=== PATIENT | male | born 1955 | race Two or more races ===

== ENCOUNTER → 2024-12-08 | Outpatient (CLI) | payer MEDICARE, MEDICAID, SELFPAY ==
--- NOTE | 2024-12-08 15:30 | XR_ITS ---
Examination: Ultrasound soft tissue extremity right hand TECHNIQUE: Grayscale sonographic images soft tissue right hand Exam date and time: December 08, 2024 1522 hours INDICATIONS: History soft tissue mass right hand, vascular mass 4.6 cm on ultrasound December 18, 2021 FINDINGS: Soft tissue mass at the surgery site 2.0 x 0.8 x 2.7 cm IMPRESSION: Soft tissue mass at the surgery site, irregular margins, measuring 2.0 x 0.8 x 2.7 cm Consider MRI hand follow-up pre and postcontrast
== END | disposition home or self-care (01) ==
LOC: CDIM 15:08
PROVIDERS: Referring Provider Nurse Practitioner; Visit Provider Nurse Practitioner
DX: R22.31 Localized swelling, mass and lump, right upper limb (principal)
CPT/HCPCS: 76882

== ENCOUNTER → 2024-12-31 | Outpatient (CLI) | payer MEDICARE, MEDICAID, SELFPAY ==
--- NOTE | 2024-12-31 08:21 | XR_ITS ---
Examination: Wrist, right 3 views Technique: Wrist AP, oblique, lateral 3 views Date and time of exam: December 31, 2024 0835 hours INDICATIONS: Lump on the back of the hand 3 months. FINDINGS: Prominent osteopenia Soft tissue vascular calcification No fracture or dislocation No bony exostosis IMPRESSION: No bony exostosis
--- NOTE | 2024-12-31 08:21 | XR_ITS ---
Examination: Hand, right 3 views Technique: Hand AP, oblique, lateral 3 views Date and time of exam: December 31, 2024 0835 hours INDICATIONS: Lump on the hand note is beginning 3 months ago. FINDINGS: Prominent osteopenia. Advanced osteoarthritis interphalangeal joint first digit Significant narrowing second and third metacarpophalangeal joints No cortical bone destruction No bony exostosis IMPRESSION: No fracture Advanced osteoarthritis interphalangeal joint first digit
== END | disposition home or self-care (01) ==
PROVIDERS: PCP Family Medicine; Referring Provider Nurse Practitioner Gerontology; Visit Provider Nurse Practitioner Gerontology
DX: M19.041 Primary osteoarthritis, right hand (principal); M25.531 Pain in right wrist
CPT/HCPCS: 73110; 73130

== ENCOUNTER → 2025-02-19 | Outpatient (CLI) | payer MEDICARE, MEDICAID, SELFPAY ==
--- NOTE | 2025-02-19 08:55 | XR_ITS ---
Examination: Wrist, right 3 views Technique: Wrist AP, oblique, lateral 3 views Date and time of exam: February 19, 2025 0858 hours INDICATIONS: Wrist pain one month history wrist surgery FINDINGS: Moderate osteopenia Soft tissue vascular calcification. Mild narrowing radiocarpal joint Moderate narrowing navicular trapezium joint Mild narrowing first carpometacarpal joint. No erosive arthritis No fracture IMPRESSION: Wrist joint narrowing as above
--- NOTE | 2025-02-19 08:55 | XR_ITS ---
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 FINDINGS: Mild opacity right base Mild prominence left ventricle Cardiac leads satisfactory position IMPRESSION: Mild pneumonia right base
--- NOTE | 2025-02-19 08:55 | XR_ITS ---
Examination: Hand, right 3 views Technique: Hand AP, oblique, lateral 3 views Date and time of exam: February 19, 2025 0858 hours INDICATIONS: Right hand pain one month. FINDINGS: Mild to moderate osteoarthritis distal interphalangeal joints second through fifth digits Significant osteoarthritis first metacarpophalangeal joint and interphalangeal joint first digit No erosive arthritis. No fractures IMPRESSION: Osteoarthritis as above
[2025-02-19 11:02] LABS: Glucose Estimated Average 100 mg/dL (80-131); Hemoglobin A1C 5.1 % Hgb (4.8-6.0)
[2025-02-19 13:11] LABS: Cocci Serology, IgM Negative (Negative)
[2025-02-20 07:21] LABS: Cocci Serology, IgG Positive (Negative)
[2025-02-20 07:22] LABS: Cocid Sro, CF/ID (UCD) NO CHG* See Sep Rpt
== END | disposition home or self-care (01) ==
LOC: CDIM 08:46 → COPL 09:23
PROVIDERS: PCP Nurse Practitioner; Referring Provider Nurse Practitioner; Visit Provider Radiology Diagnostic Radiology
DX: J18.9 Pneumonia, unspecified organism (principal); M19.041 Primary osteoarthritis, right hand; M25.831 Other specified joint disorders, right wrist; B38.3 Cutaneous coccidioidomycosis; R73.09 Other abnormal glucose
CPT/HCPCS: 36415; 71046; 73100; 73130; 83036; 86331; 86635

== ENCOUNTER 2025-04-13 20:37 | Inpatient (IN) | payer MEDICARE, MEDICAID, SELFPAY ==
[2025-04-13] VITALS (8 sets, daily range): BP systolic 81–130; BP diastolic 45–91; PULSE 66–99; RESP 14–21; TEMP 36.1–36.3; O2SAT 96–98; BMI 29.5
--- NOTE | 2025-04-13 21:23 | PD.EDSOB ---
ED SOB =RME/HPI General Chief Complaint: Shortness of Breath/Dyspnea Stated Complaint: HICCUPS FOR THE LAST 3 DAYS, SOB, COUGH Time Seen by Provider: 04/13/25 21:26 Arrival date/time: 04/13/25 20:37 RME / HPI RME / HPI Narrative: See [facility] for Dr. Collado's HPI documentation. Related Data Home Medications ?Medication ?Instructions ?Recorded ?Confirmed Seroquel 50 mg PO BID 04/14/25 04/14/25 baclofen 10 mg tablet 10 mg PO Q8H 04/14/25 04/14/25 benadryl 25 mg PO .QHS 04/14/25 04/14/25 donepezil 10 mg tablet 10 mg PO QDAY 04/14/25 04/14/25 escitalopram oxalate 20 mg tablet 20 mg PO QDAY 04/14/25 04/14/25 famotidine 20 mg tablet (Pepcid) 20 mg PO BID 04/14/25 04/14/25 levofloxacin 500 mg tablet 500 mg PO Q24H 04/14/25 04/14/25 lisinopril 10 mg tablet 10 mg PO QDAY 04/14/25 04/14/25 loratadine 10 mg tablet 10 mg PO Q24H 04/14/25 04/14/25 memantine 10 mg tablet 10 mg PO BID 04/14/25 04/14/25 prednisone 20 mg tablet 20 mg PO QDAY 04/14/25 04/14/25 tamsulosin 0.4 mg capsule (Flomax) 0.4 mg PO QDAY 04/14/25 04/14/25 Allergies Allergy/AdvReac Type Severity Reaction Status Date / Time No Known Allergies Allergy Verified 04/13/25 20:38 Review of Systems Review of Systems Systems Reviewed: All systems reviewed, normal except as documented ED Exam Narrative Physical exam: See [facility] for Dr. Collado's physical exam documentation. Course Course Course Narrative: CXR is ordered for determining the etiology of shortness of breath. Quality Measures none Orders Category Date Time Status Bedside COVID-19 Antigen Test NOW Care 04/13/25 21:30 Completed Bedside Influenza A&B Antigen Test NOW Care 04/13/25 21:[address] Screening NOW Care 04/13/25 22:41 Completed EKG (ED ONLY) *Do not use* NOW Care 04/13/25 21:31 Completed [place] to [place] Routine Care 04/14/25 01:10 Ordered Saline [Insert IV] NOW Care 04/13/25 21:30 Completed Straight [In and Out Catheter] X1 Care 04/13/25 21:[address] angio chest Stat Exams 04/13/25 22:41 Completed EKG (ED Only) Stat Exams 04/13/25 21:31 Draft US venous doppler LE BI Stat Exams 04/14/25 00:00 Completed XR chest 1V portable Stat Exams 04/13/25 21:31 Completed ABG [Arterial Blood Gas] Stat Lab 04/14/25 04:25 Completed BNP [B-Type Natriuretic Peptide] Stat Lab 04/13/25 21:43 Completed Bilirubin,Direct Stat Lab 04/13/25 21:43 Completed Blood Culture (Lab) Stat Lab 04/13/25 21:48 Results CBC Stat Lab 04/13/25 21:43 Completed CMP [Comprehensive Metabolic Panel] Stat Lab 04/13/25 21:43 Completed CRP [C-Reactive Protein] Stat Lab 04/13/25 21:43 Completed D-Dimer Stat Lab 04/13/25 21:43 Completed ESR [Sed Rate (ESR)] Stat Lab 04/13/25 21:43 Completed Lactate (Lactic Acid) Stat Lab 04/13/25 21:43 Completed Lactic Acid, 3 HR Stat Lab 04/14/25 01:29 Completed Magnesium Stat Lab 04/13/25 21:43 Completed PT [Prothrombin Time with INR] Stat Lab 04/14/25 04:00 Completed PTT [Partial Thromboplastin Time] Stat Lab 04/14/25 04:00 Completed Procalcitonin Stat Lab 04/13/25 21:43 Completed TSH [Thyroid Stimulating Hormone] Stat Lab 04/13/25 21:43 Completed Troponin I Stat Lab 04/13/25 21:43 Completed UA, C/S IF [Urinalysis, C/S if Indicated] Stat Lab 04/13/25 22:00 Completed Albuterol/Ipratr Rt Yael [Duoneb Rt Yael] Med 04/13/25 21:31 Discontinued 3 ml INH X1 ONE Cefepime Inj [Maxipime Inj] 2 gm Med 04/14/25 04:41 Discontinued SODIUM CHLORIDE 0.9% (Popper) [Ns 0.9% (P)] 50 ml IV X1 Diazepam Inj [Valium Inj] Med 04/14/25 00:27 Discontinued 5 mg IVP X1 ONE Heparin Inj Med 04/14/25 04:42 Discontinued 6,400 unit IV X1 ONE Heparin/D5w 25K 250 ML Ivpb [Heparin in D5w Ivpb] Med 04/14/25 04:45 Hold 25,000 unit in 250 ml IV 18 units/kg/hr MethylPREDNISolone.* [SoluMEDROL Inj] Med 04/13/25 21:31 Discontinued 125 mg IVP X1 ONE Norepinephrine/D5W 8mg/250ml [Levophed in D5W 8mg/250ml Med 04/14/25 00:18 Discontinued ] 8 mg in 250 ml IV 0.05 mcg/kg/min Sodium Chloride 0.9% 1000 ml [Ns] 1,000 ml Med 04/13/25 22:32 Discontinued IV 999 mls/hr Sodium Chloride 0.9% 1000 ml [Ns] 1,000 ml Med 04/13/25 23:04 Discontinued IV 999 mls/hr Sodium Chloride 0.9% 1000 ml [Ns] 1,000 ml Med 04/13/25 23:36 Discontinued IV 999 mls/hr Vancomycin Inj 2,000 mg Med 04/14/25 04:41 Discontinued Sodium Chloride 0.9% 500 ml [Ns] 500 ml IV X1 Vital Signs Vital signs: Vital Signs Temperature 97.4 F 04/13/25 21:13 Pulse Rate 99 04/13/25 21:13 Respiratory Rate 18 04/13/25 21:13 Blood Pressure 120/74 04/13/25 21:13 Pulse Oximetry (%) 96 04/13/25 21:13 Oxygen Delivery Method Room Air 04/13/25 21:13 Shortness of Breath / Dyspnea MDM Narrative MDM Narrative:: This section includes all my notes and documentations, including HPI, PE, and ED course. Keo Collado MD HPI: 69yo male here with worsening productive cough and shortness of breath for the last 1 week. With hiccups today. No obvious fever. No other complaints. ROS: All negative except as documented in HPI. Physical Exam: General: Alert and oriented X 1. Hypoxia noted. Hypotension noted. Eyes: Conjunctivae and lids clear. ENT: No nasal congestion. Neck: Supple. No carotid bruit. No JVD. Heart: RRR. Lungs: No respiratory distress. Good air movement with rales. Abdomen: Soft and nontender. Normal bowel sounds. No distension. No rebound or guarding. Back: No CVA tenderness. Skin: Warm and dry. I reviewed all diagnostic test results. My interpretation of the EKG is sinus rhythm with PACs and nonspecific ST-T changes. My interpretation of the chest x-ray is equivocal infiltrates. My review of the bilateral lower extremity US report is right leg DVT. My review of the CT angio chest report is pulmonary embolism with pneumonia. Blood tests remarkable for ESR 45, D-Dimer >3280, Creatinine 2.0, CRP 17.7. UA unremarkable. COVID/Influenza negative. At this point, diagnoses include: Sepsis, Pulmonary embolism, Acute respiratory failure with hypoxia, Right leg DVT, Pneumonia, Dementia, FADY (acute kidney injury). Treatment here included: Oxygen, Duoneb, Valium (for help with CT scan), IV fluid, Solumedrol, Levophed drip, Heparin bolus and drip, Cefepime, Vancomycin. I discussed the case with our ICU team. About the presentation and exam and diagnostics and treatments here. And need of further care in the hospital. Will accept the patient. Keo Collado MD Patient data External records reviewed:: [facility] previous records (Per chart review, patient was seen here on 11/30/18 for bradycardia.) Clinical information provided by:: patient and family Social determinants that could affect healthcare access:: none Patient has the following chronic illnesses:: Alzheimer's How is presenting disease/condition affected by chronic disease/condition?: uneffected by Evaluation data The following diagnostics were reviewed and interpreted by me:: lab results, radiology exam(s) and EKG tracing(s) (My interpretation of the EKG is: Sinus rhythm (82 bpm) with PACs and nonspecific ST-T changes. Keo Collado MD) Lab and/or radiology exams considered but not ordered:: none Interpretation Summary: I reviewed all diagnostic test results. My interpretation of the EKG is sinus rhythm with PACs and nonspecific ST-T changes. My interpretation of the chest x-ray is equivocal infiltrates. My review of the bilateral lower extremity US report is right leg DVT. My review of the CT angio chest report is pulmonary embolism with pneumonia. Blood tests remarkable for ESR 45, D-Dimer >3280, Creatinine 2.0, CRP 17.7. UA unremarkable. COVID/Influenza negative. Medications / Prescriptions Medications or Prescriptions considered but not ordered:: none Medication administrations:: Medication Administration History Acetaminophen (Acetaminophen 325 Mg Tablet) 650 mg PO Q6H PRN PRN Reason: PAIN OR FEVER > 101 Stop: 05/14/25 05:14 Last Admin: 04/14/25 09:36 Dose: 650 mg Documented By: ABBE Baclofen (Baclofen 10 Mg Tablet) 10 mg PO Q8H [facility] Stop: 05/14/25 18:29 Donepezil HCl (Donepezil Hcl 5 Mg Tablet) 10 mg PO QDAY [facility] Stop: 05/15/25 08:59 Heparin Sodium/Dextrose (Heparin In D5w Ivpb) 25,000 unit in 250 mls @ 14.451 mls/hr IV .[id number] ARIANA; Protocol Stop: 04/28/25 04:44 Last Titration: 04/14/25 16:13 Dose: 15 units/kg/hr, 12.043 mls/hr Documented By: KASSIE Co-signed By: MG Titration: 04/14/25 15:12 Dose: 0 units/kg/hr, 0 mls/hr Documented By: ABBE Co-signed By: MV Titration: 04/14/25 15:00 Dose: 18 units/kg/hr, 14.451 mls/hr Documented By: ABBE Co-signed By: MV Titration: 04/14/25 14:00 Dose: 18 units/kg/hr, 14.451 mls/hr Documented By: ABBE Co-signed By: MV Titration: 04/14/25 13:00 Dose: 18 units/kg/hr, 14.451 mls/hr Documented By: ABBE Co-signed By: MV Titration: 04/14/25 12:00 Dose: 18 units/kg/hr, 14.451 mls/hr Documented By: ABBE Co-signed By: MV Titration: 04/14/25 11:00 Dose: 18 units/kg/hr, 14.451 mls/hr Documented By: ABBE Co-signed By: MV Titration: 04/14/25 10:00 Dose: 18 units/kg/hr, 14.451 mls/hr Documented By: ABBE Co-signed By: KASSIE Titration: 04/14/25 09:00 Dose: 18 units/kg/hr, 14.451 mls/hr Documented By: ABBE Co-signed By: KASSIE Admin: 04/14/25 05:41 Dose: 18 units/kg/hr, 14.451 mls/hr Documented By: MARLEEN Co-signed By: IVORY Azithromycin 500 mg/ Sodium (Chloride) 250 mls @ 250 mls/hr IV QDAY ARIANA Stop: 04/22/25 08:59 Ceftriaxone Sodium/Dextrose (Rocephin/D5w 1gm Iv Premix) 1 gm in 50 mls @ 100 mls/hr IV QDAY ARIANA Stop: 04/22/25 08:59 Memantine (Memantine Hcl 5 Mg Tablet) 10 mg PO BID ARIANA Stop: 05/14/25 20:59 Ondansetron HCl (Ondansetron Inj 2 Mg/Ml Inj 2 Ml) 4 mg IVP Q6H PRN; Protocol PRN Reason: NAUSEA OR VOMITING Stop: 05/14/25 05:14 Quetiapine Fumarate (Quetiapine Fumarate 25 Mg Tablet) 50 mg PO BID ARIANA Stop: 05/14/25 20:59 Sennosides (Senna Tablet) 1 tab PO QDAY ARIANA; Protocol Stop: 05/14/25 18:29 Tamsulosin HCl (Tamsulosin Hcl 0.4 Mg Capsule) 0.4 mg PO QDAY [facility] Stop: 05/15/25 08:59 Discontinued Medications Albuterol/Ipratropium (Albuterol/Ipratropium (Duoneb) Rt Yael 3 Ml Nebu) 3 ml INH X1 ONE Stop: 04/13/25 21:32 Last Admin: 04/13/25 21:57 Dose: 3 ml Documented By: HARRY Diazepam (Diazepam Inj 5 Mg/Ml Vial 2 Ml) 5 mg IVP X1 ONE Stop: 04/14/25 00:28 Last Admin: 04/14/25 00:47 Dose: 5 mg Documented By: IVORY Gabapentin (Gabapentin 300 Mg Capsule) 300 mg PO X1 ONE Stop: 04/14/25 15:06 Heparin Sodium (Porcine) (Heparin Sod Inj 5000 Unit/Ml Vial) 6,400 unit 80 unit/kg (6400 unit) IV X1 ONE; Protocol Stop: 04/14/25 04:43 Last Admin: 04/14/25 05:39 Dose: 6,400 unit Documented By: MARLEEN Co-signed By: IVORY Sodium Chloride (Ns) 1,000 mls @ 999 mls/hr IV .Q1H1M ONE Stop: 04/13/25 23:32 Last Infusion: 04/13/25 23:23 Dose: Infused Documented By: [email or web address] Admin: 04/13/25 22:39 Dose: 999 mls/hr Documented By: [email or web address] Sodium Chloride (Ns) 1,000 mls @ 999 mls/hr IV .Q1H1M ONE Stop: 04/14/25 00:04 Last Infusion: 04/13/25 23:57 Dose: Infused Documented By: [email or web address] Admin: 04/13/25 23:24 Dose: 999 mls/hr Documented By: [email or web address] Sodium Chloride (Ns) 1,000 mls @ 999 mls/hr IV .Q1H1M ONE Stop: 04/14/25 00:36 Last Infusion: 04/14/25 00:50 Dose: Infused Documented By: Admin: 04/13/25 23:57 Dose: 999 mls/hr Documented By: IVORY Norepinephrine/Dextrose (Levophed In D5w 8mg/250ml) 8 mg in 250 mls @ 7.527 mls/hr IV .Q24H PRN; Protocol PRN Reason: PER PROTOCOL Stop: 05/14/25 00:17 Last Titration: 04/14/25 09:00 Dose: 0 mcg/kg/min, 0 mls/hr Documented By: Titration: 04/14/25 06:24 Dose: 0.03 mcg/kg/min, 4.516 mls/hr Documented By: [email or web address] Titration: 04/14/25 05:23 Dose: 0.05 mcg/kg/min, 7.527 mls/hr Documented By: Titration: 04/14/25 04:52 Dose: 0 mcg/kg/min, 0 mls/hr Documented By: [email or web address] Titration: 04/14/25 04:00 Dose: 0.01 mcg/kg/min, 1.505 mls/hr Documented By: [email or web address] Titration: 04/14/25 02:49 Dose: 0.03 mcg/kg/min, 4.516 mls/hr Documented By: [email or web address] Admin: 04/14/25 01:11 Dose: 0.05 mcg/kg/min, 7.527 mls/hr Documented By: IVORY Cefepime HCl 2 gm/ Sodium (Chloride) 50 mls @ 100 mls/hr IV X1 ONE Stop: 04/14/25 05:10 Last Infusion: 04/14/25 06:01 Dose: Infused Documented By: Admin: 04/14/25 05:31 Dose: 100 mls/hr Documented By: MARLEEN Vancomycin HCl 2,000 mg/ (Sodium Chloride) 500 mls @ 150 mls/hr IV X1 ONE Stop: 04/14/25 08:00 Last Admin: 04/14/25 07:59 Dose: 150 mls/hr Documented By: BLAKE Ceftriaxone Sodium/Dextrose (Rocephin/D5w 1gm Iv Premix) 1 gm in 50 mls @ 100 mls/hr IV QDAY [facility] Stop: 04/21/25 05:20 Azithromycin 500 mg/ Sodium (Chloride) 250 mls @ 250 mls/hr IV X1 ONE Stop: 04/14/25 07:14 Last Infusion: 04/14/25 08:01 Dose: Infused Documented By: Admin: 04/14/25 06:52 Dose: 250 mls/hr Documented By: IVORY Ceftriaxone Sodium 1 gm/ (Sodium Chloride) 50 mls @ 100 mls/hr IV X1 ONE Stop: 04/14/25 06:44 Last Infusion: 04/14/25 07:23 Dose: Infused Documented By: Admin: 04/14/25 06:45 Dose: 100 mls/hr Documented By: IVORY Methylprednisolone Sodium Succinate (Methylprednisolone Sod Succ 62.5 Mg/Ml 2ml Vial) 125 mg IVP X1 ONE Stop: 04/13/25 21:32 Last Admin: 04/13/25 22:04 Dose: 125 mg Documented By: IVORY Metoclopramide HCl (Metoclopramide Inj 5 Mg/Ml Vial 2 Ml) 5 mg IVP X1 ONE; Protocol Stop: 04/14/25 15:52 Last Admin: 04/14/25 15:56 Dose: 5 mg Documented By: KASSIE Pantoprazole Sodium (Pantoprazole Inj 40 Mg Vial) 40 mg IVP QDAY ARIANA Stop: 05/14/25 08:59 Last Admin: 04/14/25 09:35 Dose: 40 mg Documented By: ABUNM Potassium Phos/Sodium Phos (Naph,[facility] Mbdb 1 Packet (1.5 Gm)) 1 packet PO X1 ONE Stop: 04/14/25 18:12 Sodium Chloride (Sodium Chloride Rt 10% 15 Ml Nebu) 5 ml INH X1 ONE Stop: 04/14/25 05:16 Sodium Chloride (Sodium Chloride Rt 10% 15 Ml Nebu) 5 ml INH X1 ONE Stop: 04/14/25 06:53 Treatment from me here included Oxygen, Duoneb, Valium, IV fluid, Solumedrol, Levophed, Cefepime, Vancomycin. Consultations Consultation(s) initiated? (list below): Yes Consultation #1 (Physician, Specialty, Details): I discussed the case with our hospitalist and ICU team. About the presentation and exam and diagnostics and treatments here. And need of further care in the hospital. Will accept the patient. Diagnosis Shortness of Breath Differential Diagnosis: acute exacerbation of chronic obstructive airways disease, congestive heart failure, community acquired pneumonia, asthma with exacerbation and pulmonary embolism Most likely diagnosis given after review of the tests above:: Sepsis, Pulmonary embolism, Acute respiratory failure with hypoxia, Right leg DVT, Pneumonia, Dementia, FADY (acute kidney injury) Admission Indicated Admission indicated?: indicated Explain why admission is indicated or not indicated:: Sepsis, Pulmonary embolism, Acute respiratory failure with hypoxia, Right leg DVT, Pneumonia, Dementia, FADY (acute kidney injury) Admission Request Was there a request for admission?: Yes Admission Attestation Admission request attestation: Discussed case with ICU service regarding admission. Discussed patients ED course, exam findings, labs, and radiology results. Agreed to accept the patient for admission. Disposition Plan Disposition Plan: Admit Critical Care Time Critical Care Time Critical Care Time: Yes Total Critical Care Time (min.): 40 Attestation: Due to a high probability of clinically significant, life threatening deterioration, the patient required my highest level of preparedness to intervene emergently and I personally spent this critical care time directly and personally managing the patient. This critical care time included obtaining a history; examining the patient; ordering and review of studies; arranging urgent treatment with development of a management plan; evaluation of patient's response to treatment; frequent reassessment; and discussions with family and other providers. It was exclusive of separately billable procedures and treating other patients and teaching time. Keo Collado MD Discharge Plan Plan Patient Disposition: Admit Acute Care w/in Hospital Problem List Clinical Impression: Sepsis, Pulmonary embolism, Acute respiratory failure with hypoxia, Right leg DVT, Pneumonia, Dementia, FADY (acute kidney injury)
--- NOTE | 2025-04-13 21:31 | EKG_ITS ---
[facility] Test Date: 2025-04-13 Pat Name: PETAR APARICIO Department: Room: - Gender: Male Region Manager: : 1955 Requested By: Keo Amos Order Number: [id number] Reading MD: Keo Amos Measurements Intervals [place] Rate: 82 P: 58 [place]: 177 QRS: 4 QRSD: 86 T: 66 QT: 387 QTc: 454 Interpretive Statements SINUS RHYTHM WITH OCCASIONAL SUPRAVENTRICULAR PREMATURE COMPLEXES WARNING: DATA QUALITY MAY AFFECT INTERPRETATION Compared to ECG 11/30/2018 08:30:03 Sinus bradycardia no longer present /store/[email or web address]/[id number]
--- NOTE | 2025-04-13 21:31 | XR_ITS ---
Examination: AP chest single view Technique: AP portable upright chest single view Date and time: April 13, 2025, 2132 hrs., Comparison February 19, 2025 Indications: Shortness of breath coughing 3 days. Findings: Subsegmental atelectasis right base Normal heart size Transvenous dual-chamber bipolar cardiac leads satisfactory position Moderate osteopenia No lobar pneumonia or pulmonary edema Impression: Minor atelectasis right base No pneumonia or pulmonary edema
[2025-04-13] MEDS: ALBUTEROL/IPRATROPIUM (Duoneb) RT SOL 3 ML NEBU INH (21:57)
[2025-04-13 22:02] LABS: Lactate (Lactic Acid) 3.1 mMol/L (0.4-2.0)
[2025-04-13 22:03] LABS: Basophils # (Auto) 0.0 Thou/mm3 (0.0-0.2); Basophils % (Auto) 0 % (0-2.5); Eosinophils # (Auto) 0.0 Thou/mm3 (0.0-0.5); Eosinophils % (Auto) 0 % (0-10); Hematocrit 47.0 % (41.0-53.0); Hemoglobin 15.7 g/dL (13.5-16.0); Immature Granulocytes Auto 0.07 Thou/mm3 (0.00-0.00); Lymphocytes # (Auto) 0.5 Thou/mm3 (1.0-4.8); Lymphocytes % (Auto) 5 % (10-50); Mean Corpuscular HGB Conc 33.4 g/dl (31.0-37.0); Mean Corpuscular Hemoglobin 30.4 pg (25.0-35.0); Mean Corpuscular Volume 91 fL (80-100); Monocytes # (Auto) 0.6 Thou/mm3 (0.0-0.8); Monocytes % (Auto) 6 % (0-12); Neutrophils # (Auto) 10.1 Thou/mm3 (1.8-7.7); Neutrophils % (Auto) 89 % (37-80); Nucleated Red Blood Cell # 0.00 Thou/mm3 (0.00-0.00); Nucleated Red Blood Cell % 0 /100 WBC (0); Platelet Count 192 Thou/mm3 (140-440); RDW Standard Deviation 43.8 fL (35.1-43.9); Red Blood Count 5.16 Miln/mm3 (4.50-5.90); White Blood Count 11.4 Thou/mm3 (3.8-10.6)
[2025-04-13 22:04] LABS: Collection Type, Urine Clean Catch
[2025-04-13] MEDS: MethylPREDNISolone SOD SUCC 62.5 MG/ML 2ML VIAL 125 MG IVP (22:04)
[2025-04-13 22:14] LABS: Bilirubin,Urine Negative (Negative); Blood,Urine Negative (Negative); Clarity,Urine Clear (Clear/Hazy); Color,Urine Yellow (Lt Yel-Yel); Culture Indicated,Urine Not Indicated; Glucose, Urine Negative (Negative); Hyaline Casts,Urine < 1 /hpf (0-1); Ketones,Urine 2+ (Negative); Leukocyte Esterase,Urine Negative (Negative); Nitrite,Urine Negative (Negative); PH,Urine 6.0 (5.0-7.0); Protein,Urine Trace (Neg - Trace); RBC,Urine < 1 /hpf (0-3); Specific Gravity,Urine 1.026 (1.001-1.035); Squamous Epithelial Cell,Urine < 1 /hpf (0-5); Urobilinogen,Urine 2.0 mg/dL (0.0-1.0); WBC,Urine 1 /hpf (0-5)
[2025-04-13 22:22] LABS: B-Type Natriuretic Peptide 55 pg/mL (0-100)
[2025-04-13 22:24] LABS: D-Dimer > 3820 ng/mL (<600)
[2025-04-13 22:37] LABS: Sed Rate (ESR) 45 mm/hr (0-20)
[2025-04-13] MEDS: SODIUM CHLORIDE 0.9% 1000 ML 1,000 ML 999 ML IV ×3 (22:39→23:57)
--- NOTE | 2025-04-13 22:41 | XR_ITS ---
Examination: CTA chest with intravenous contrast 2-D reconstructions 3-D reconstructions, vascular Date and time of exam: April 14, 2025, 1354 hrs. Indications: Chest pain shortness of breath coughing elevated d-dimer, symptoms beginning 3 days ago. CTDI: vol (mGy) 10.1. DLP: (mGycm) 394. Technique: Multiple axial sections of the thorax have been obtained. 3 mm slice thickness, from below the hemidiaphragms to above the apices of the lungs. Mediastinal and lung density settings have been obtained. 2-D sagittal and coronal reconstructions. 3-D angiographic renderings, 3-D volume renderings, 3D post processing, vascular maximum intensity projections obtained. Contrast administered is 60 cc Isovue-300.. Low dose protocols were performed. One or more of the following dose reduction techniques were used; automated exposure control, adjustment of the mA and/or KV according to patient size, use of iterative reconstruction technique. Findings: No thoracic aortic aneurysmal dilatation Pulmonary artery segments are not enlarged. There are multiple pulmonary artery filling defects in left lower lobe pulmonary arteries Mild pneumonia both lung bases Moderate calcification left anterior descending coronary No eric pulmonary edema Main pulmonary artery segment is not enlarged Multiple gallstones No pancreatic mass Impression: Positive for pulmonary artery emboli in left lower lobe pulmonary artery branches. Mild pneumonia both bases Cholelithiasis
[2025-04-13 22:49] LABS: Alanine Aminotransferase 23 U/L (10-49); Albumin, Serum 4.3 gm/dL (3.4-4.8); Albumin/Globulin Ratio 1.4 (1.2-2.2); Alkaline Phosphatase 144 U/L (46-116); Anion Gap 10 (7-16); Aspartate Amino Transferase 25 U/L (0-34); BUN/Creatinine Ratio 16 Ratio (12-20); Bilirubin,Direct 0.3 mg/dL (0.0-0.3); Bilirubin,Total 0.9 mg/dL (0.3-1.2); Blood Urea Nitrogen 32 mg/dL (9-23); C-Reactive Protein 17.7 mg/dL (0.0-0.9); Calcium 9.6 mg/dL (8.3-10.6); Calcium (Corrected) 9.6 mg/dL (8.5-10.1); Carbon Dioxide 26.1 mMol/L (20.0-31.0); Chloride 104 mMol/L (98-107); Creatinine (Component) 2.0 mg/dL (0.6-1.3); Estimated Creatinine Clearance 32.4 mL/min (>60); Globulin 3.1 gm/dL (2.3-3.5); Glucose 143 mg/dL (74-106); Magnesium 2.3 mg/dL (1.6-2.6); Osmolality,Calculated 288 (275-295); Potassium 4.5 mMol/L (3.4-5.1); Procalcitonin 0.45 ng/ml (0.0-0.49); Sodium 140 mMol/L (136-145); Thyroid Stimulating Hormone 0.92 uIU/mL (0.55-4.78); Total Protein 7.4 gm/dL (5.7-8.2); Troponin I < 0.020 ng/mL (0.0-0.045); eGFR 35 See Note
--- NOTE | 2025-04-13 22:58 | PC.NURSE ---
Patient placed on 3 l nc for desaturation. MD notified.
[2025-04-14] VITALS (90 sets, daily range): BP systolic 83–170; BP diastolic 52–122; PULSE 62–118; RESP 4–98; TEMP 36.1–37; O2SAT 91–99
--- NOTE | 2025-04-14 | XR_ITS ---
Examination: Venous duplex lower extremity sonogram, bilateral. Date and time of exam: April 14, 2025 1222 hours INDICATIONS: Bilateral leg pain beginning 6 months ago Technique: Multiple sonographic images of the deep venous system have been obtained. B-mode/2-D grayscale imaging of vascular structures and Doppler spectral analysis (waveforms) and color performed Both legs are examined. Findings: Positive for extensive right leg deep vein thrombus, right superficial femoral vein, popliteal perineal veins Left lower extremity unremarkable for DVT IMPRESSION: Extensive acute right leg DVT
[2025-04-14] MEDS: DIAZEPAM INJ 5 MG/ML VIAL 2 ML IVP (00:47)
[2025-04-14 00:53] LABS: Reflex Lactate? Y
[2025-04-14] MEDS: Norepinephrine/D5W 8mg/250ml 8 MG/250 ML BAG 7.527 MG IV (01:11)
[2025-04-14 01:34] LABS: Lactic Acid, 3 HR 1.6 mMol/L (0.4-2.0)
[2025-04-14 04:32] LABS: Base Excess -4 (-3-3); HCO3 21 mEq/L (20-26); Inspired O2, VO2 Liters 2 L/min; Inspired Oxygen, FIO2 28 %; O2 Saturation 98 % (91-98); PCO2 38 mmHg (32.0-48.0); PO2 94 mmHg (83-108); pH, Arterial 7.35 (7.35-7.45)
[2025-04-14 04:33] LABS: Allen Test Performed/OK; Puncture Site Right Radial
[2025-04-14 04:43] LABS: INR 1.2 (0.9-1.3); Partial Thromboplastin Time 26.9 Seconds (22.0-36.0); Prothrombin Time 12.7 Seconds (9.0-12.2)
--- NOTE | 2025-04-14 05:20 | ECHO_ITS ---
Transthoracic Echo Report Ht (in): 64 Wt (lb): 177 Exam Location: Echo Lab Status: Emergency [employer] Nurse: Leana Pickett Indications: Procedure Performed: BP: 127 / 72 HR: 66 MEASUREMENTS (Male / Female) Normal Values 2D ECHO LV Diastolic Diameter PLAX 3.7 cm 4.2 - 5.9 / 3.9 - 5.3 cm LV Systolic Diameter PLAX 2.5 cm IVS Diastolic Thickness 1.1 cm 0.6 - 1.0 / 0.6 - 0.9 cm LVPW Diastolic Thickness 1.4 cm 0.6 - 1.0 / 0.6 - 0.9 cm LV Relative Wall Thickness 0.7 LVOT Diameter 2.1 cm Ascending Aorta Diameter 3.2 cm M-MODE AV Cusp Separation MM 1.4 cm DOPPLER AV Peak Velocity 149.0 cm/s AV Peak Gradient 8.9 mmHg AV Mean Gradient 4.0 mmHg AV Velocity Time Integral 26.0 cm LVOT Peak Velocity 120.0 cm/s LVOT Peak Gradient 5.8 mmHg LVOT Velocity Time Integral 25.9 cm LVOT Cardiac Index 3066.5 cm?/min?m? AV Area Cont Eq vti 3.5 cm? AV Area Cont Eq pk 2.8 cm? MV Area PHT 3.8 cm? Mitral E Point Velocity 91.7 cm/s Mitral A Point Velocity 93.6 cm/s Mitral E to A Ratio 1.0 LV E' Lateral Velocity 12.4 cm/s Mitral E to LV E' Lateral Ratio 7.4 LV E' Septal Velocity 8.2 cm/s Mitral E to LV E' Septal Ratio 11.2 TR Peak Velocity 270.0 cm/s TR Peak Gradient 29.2 mmHg PV Peak Velocity 93.7 cm/s PV Peak Gradient 3.5 mmHg FINDINGS Left Ventricle Normal left ventricular size, wall thickness, systolic function with no obvious regional wall motion abnormalities.There is grade I diastolic dysfunction of the left ventricle (impaired relaxation pattern). The ejection fraction is visually estimated at 60-65 %. TDS due to patient lieing on right side. Right Ventricle The right ventricle is normal in size and systolic function. The estimated right ventricular systolic pressure,37 mmHg with RAP 8 Left Atrium The left atrium is normal by two-dimensional, color flow and Doppler imaging with no structural abnormalities, no thrombus formation present. Right Atrium The right atrium is normal by two-dimensional imaging, color flow and Doppler imaging with no structural abnormalities, no thrombus formation present. Atrial Septum The interatrial septum appears normal with no evidence of a shunt. Aorta The aorta is normal by two-dimensional, color flow and Doppler interrogation. Mitral Valve The mitral valve is normal by two-dimensional, color flow and Doppler interrogation. Trace mitral regurgitation. Aortic Valve The aortic valve is trileaflet and normal by two-dimensional, color flow and Doppler interrogation. There is no significant aortic valve regurgitation. Tricuspid Valve The tricuspid valve is normal by two-dimensional, color flow and Doppler interrogation. There is mild tricuspid valve regurgitation. Pulmonic Valve The pulmonic valve is not well visualized. There is no significant pulmonic valve regurgitation. Vessels The pulmonary artery appears normal. The inferior vena cava NWV. Pericardium The pericardium is normal by two-dimensional imaging. There is no significant pericardial effusion. CONCLUSIONS Normal left ventricular size and function. Approximate ejection fraction is 60- 65%. Grade I diastolic dysfunction. RV normal in size and function. RVSP 37mmHg with RAP 8 Trace mitral and trace tricuspid regurgitation Nichole Funez (Electronically Signed) Final Date: 15 April 2025 17:26
[2025-04-14] MEDS: CEFEPIME INJ 2 GM in SODIUM CHLORIDE 0.9% (Popper) 50 ML IV (05:31)
[2025-04-14] MEDS: HEPARIN SOD INJ 5000 UNIT/ML VIAL 6400 UNIT IV (05:39)
[2025-04-14] MEDS: Heparin/D5w 25K 250 ML Ivpb 25,000 UNIT/250 ML BAG 14.451 UNIT IV (05:41)
--- NOTE | 2025-04-14 05:42 | PD.RESHP ---
Documentation for date of: 04/14/25 [facility] History of Present Illness History of present illness: Patient is 69-year-old male with past medical history of hypertension, BPH, valley fever, Alzheimer disease diagnosed about 5 years ago, history of sick sinus syndrome status post dual-chamber pacemaker placement was presented to ED with chief complaints of generalized weakness, cough, shortness of breath and hiccups that started about 3 days ago. Due to dementia history mainly taken from the family members at bedside. Daughter was at bedside and stated that he was progressively getting worse for the last 6 months mentation [place]. For the last 3 days he was not acting himself, had increased cough, and was breathing faster than usual. Patient himself is completely dependent on his daily activities and was not even able to tell the family he is main complaints. On arrival patient was hypotensive, with MAP of below 65, patient was saturating 96% on 2 L nasal cannula, afebrile, respiratory rate of 18, heart rate of 99. Labs revealed BUN of 32, creatinine of 2, EGFR of 36, glucose of 143, lactic acid was 3.1, Pro-Artis was within normal limits. CMP revealed mild leukocytosis with WBC of 11.4, with left shift. Elevated CRP and ESR also noted. Chest x-ray showed mild atelectasis on the right base. Due to concern of PE venous Doppler ultrasound was ordered which revealed occlusive thrombus extending from the right superficial femoral vein to the peroneal vein. CT angio was done which revealed pulmonary emboli in the subsegmental branches of the left lower lobe pulmonary artery without CT evidence of increased pulmonary pressures. Bilateral lower lobe pneumonia. Coronary artery calcifications. Small hiatal hernia. In ED patient received breathing treatment with DuoNebs, methylprednisone, antibiotics, cultures were drawn. Patient received total of 3 L of normal saline, however MAP was still below 65, at that point patient started on Levophed and was admitted to ICU for septic shock secondary due to pneumonia. PMH as above Medication, tamsulosin, donepezil, memantine, lisinopril Allergies NKDA Social history lives with the , completely dependent on his daily activities. is a primary caregiver Review of Systems Review of Systems ROS Unobtainable: unobtainable due to mental status Exam Vital Signs Temp Pulse Resp BP Pulse Ox O2 Del Method O2 Flow Rate 97.8 F 73 14 95/53 L 99 Nasal Cannula 3 04/14/25 04:28 04/14/25 05:17 04/14/25 05:17 04/14/25 05:17 04/14/25 05:17 04/14/25 05:17 04/14/25 05:17 Narrative Exam GENERAL: Not able to communicate due to underlying dementia, however peacefully laying in bed, not in acute distress HEENT: Head AT/ NC. Mucous membranes moist. NECK: Supple, no lymphadenopathy, no carotid bruits. CARDIOVASCULAR: RRR. Normal S1/S2, No m/r/g. 1+ pitting edema of bilateral LEs. Pacemaker noted, left chest RESPIRATORY: No wheezing, no crackles GASTROINTESTINAL: Abdomen soft, non tender no palpable masses. Bowel sounds present in all 4 quadrants. MUSCULOSKELETAL:? No cyanosis or edema, no visible joint swelling. NEUROLOGICAL: Limited due to underlying dementia INTEGUMENTARY: No obvious rashes, no jaundice, normal turgor. Results: Labs 04/13/25 21:43 04/13/25 21:43 Labs: Short CBC 04/13/25 Range/Units 21:43 WBC 11.4 H (3.8-10.6) Thou/mm3 Hgb 15.7 (13.5-16.0) g/dL Hct 47.0 (41.0-53.0) % Plt Count 192 (140-440) Thou/mm3 BMP 04/13/25 21:43 Sodium 140 Potassium 4.5 Chloride 104 Carbon Dioxide 26.1 BUN 32 H Creatinine 2.0 H Glucose 143 H Calcium 9.6 Cardiac Enzymes 04/13/25 Range/Units 21:43 Troponin I < 0.020 (0.0-0.045) ng/mL Liver Function 04/13/25 Range/Units 21:43 Total Bilirubin 0.9 (0.3-1.2) mg/dL Direct Bilirubin 0.3 (0.0-0.3) mg/dL AST 25 (0-34) U/L ALT 23 (10-49) U/L Alkaline Phosphatase 144 H (46-116) U/L Albumin 4.3 (3.4-4.8) gm/dL Urine 04/13/25 Range/Units 22:00 Urine Color Yellow (Lt Yel-Yel) Urine Clarity Clear (Clear/Hazy) Urine pH 6.0 (5.0-7.0) Ur Specific [place] 1.026 (1.001-1.035) Urine Protein Trace (Neg - Trace) Urine Glucose (UA) Negative (Negative) ABG Interpretation ABG results: 04/14/25 04:25 ABG pH 7.35 ABG pCO2 38 ABG pO2 94 ABG HCO3 21 ABG O2 Saturation 98 ABG Base Excess -4 L Quality Measures Quality Measures none Advance care planning discussed with:: child Medications Home Medications and Allergies Home Medications ?Medication ?Instructions ?Recorded ?Confirmed ?Type No Known Home Medications 02/04/19 02/04/19 History Allergies Allergy/AdvReac Type Severity Reaction Status Date / Time No Known Allergies Allergy Verified 04/13/25 20:38 Visit Medications Acetaminophen (Acetaminophen 325 Mg Tablet) 650 mg PO Q6H PRN PRN Reason: PAIN OR FEVER > 101 Stop: 05/14/25 05:14 Norepinephrine/Dextrose (Levophed In D5w 8mg/250ml) 8 mg in 250 mls @ 7.527 mls/hr IV .Q24H PRN; Protocol PRN Reason: PER PROTOCOL Stop: 05/14/25 00:17 Last Titration: 04/14/25 05:23 Dose: 0.05 mcg/kg/min, 7.527 mls/hr Vancomycin HCl 2,000 mg/ (Sodium Chloride) 500 mls @ 150 mls/hr IV X1 ONE Stop: 04/14/25 08:00 Heparin Sodium/Dextrose (Heparin In D5w Ivpb) 25,000 unit in 250 mls @ 14.451 mls/hr IV .[id number] [facility]; Protocol Stop: 04/28/25 04:44 Ceftriaxone Sodium 1 gm/ (Sodium Chloride) 50 mls @ 100 mls/hr IV QDAY ARIANA Stop: 04/21/25 05:20 Azithromycin 500 mg/ Sodium (Chloride) 250 mls @ 250 mls/hr IV QDAY [facility] Stop: 04/21/25 05:21 Ondansetron HCl (Ondansetron Inj 2 Mg/Ml Inj 2 Ml) 4 mg IVP Q6H PRN; Protocol PRN Reason: NAUSEA OR VOMITING Stop: 05/14/25 05:14 Pantoprazole Sodium (Pantoprazole Inj 40 Mg Vial) 40 mg IVP QDAY [facility] Stop: 05/14/25 08:59 Sodium Chloride (Sodium Chloride Rt 10% 15 Ml Nebu) 5 ml INH X1 ONE Stop: 04/14/25 05:16 Discontinued Medications Albuterol/Ipratropium (Albuterol/Ipratropium (Duoneb) Rt Yael 3 Ml Nebu) 3 ml INH X1 ONE Stop: 04/13/25 21:32 Last Admin: 04/13/25 21:57 Dose: 3 ml Diazepam (Diazepam Inj 5 Mg/Ml Vial 2 Ml) 5 mg IVP X1 ONE Stop: 04/14/25 00:28 Last Admin: 04/14/25 00:47 Dose: 5 mg Heparin Sodium (Porcine) (Heparin Sod Inj 5000 Unit/Ml Vial) 6,400 unit 80 unit/kg (6400 unit) IV X1 ONE; Protocol Stop: 04/14/25 04:43 Sodium Chloride (Ns) 1,000 mls @ 999 mls/hr IV .Q1H1M ONE Stop: 04/13/25 23:32 Last Infusion: 04/13/25 23:23 Dose: Infused Sodium Chloride (Ns) 1,000 mls @ 999 mls/hr IV .Q1H1M ONE Stop: 04/14/25 00:04 Last Infusion: 04/13/25 23:57 Dose: Infused Sodium Chloride (Ns) 1,000 mls @ 999 mls/hr IV .Q1H1M ONE Stop: 04/14/25 00:36 Last Admin: 04/13/25 23:57 Dose: 999 mls/hr Cefepime HCl 2 gm/ Sodium (Chloride) 50 mls @ 100 mls/hr IV X1 ONE Stop: 04/14/25 05:10 Last Admin: 04/14/25 05:31 Dose: 100 mls/hr Methylprednisolone Sodium Succinate (Methylprednisolone Sod Succ 62.5 Mg/Ml 2ml Vial) 125 mg IVP X1 ONE Stop: 04/13/25 21:32 Last Admin: 04/13/25 22:04 Dose: 125 mg Assessment & Plan Plan 69-year-old male with past medical history of BPH, hypertension, sick sinus syndrome status post pacemaker placement, Alzheimer disease was admitted to ICU for septic shock 2/2 CAP requiring pressor support along with managment for PE and DVT. [employer] #Alzheimer disease Continue supportive care for Alzheimer disease Resume home medication after med rec is completed CVS #Septic shock secondary to pneumonia. Despite fluid resuscitation the patient remained hypotensive with MAP below 65 requiring Levophed Patient presented with chief complaints of generalized weakness, on arrival MAP was below 65, Further labs revealed leukocytosis with left shift, lactic acid was elevated, Per family for the last 3 days patient had severe cough with sputum production CTA chest revealed bilateral pneumonia In ED patient received 3 L of bolus without significant improvement Patient started on Levophed Plan is to continue monitoring and management of sepsis with antibiotics Follow-up with cultures Continue respiratory support with oxygen as needed Monitor closely for signs of worsening sepsis or ARDS Continue Levophed and wean off as tolerates #History of sick sinus syndrome status post pacemaker placement No new arrhythmias or pacemaker malfunction noted Plan is to continue current management, consider cardiology consult. Respiratory #Pulmonary embolism in the subsegmental branches of the left lower lobe pulmonary artery No signs of right heart strain/ Pulmonary HTN on CT Per daughter patient has not been ambulating because of frequent falls, likely puting him at risk for DVT/PE Plan is to start anticoagulation therapy with heparin drip Monitor for signs of bleeding, further hemodynamic instability Echo pending GI no active disease Renal #FADY BUN of 32, EGFR of 36 most likely exacerbated by sepsis Patient received IV fluids Plan to monitor renal function closely Adjust fluid management to avoid overload Consider nephrology consultation if kidney function worsens Renally dose medication Avoid nephrotoxins Close monitor urine output Endo No active disease Hematology #DVT Right lower extremity DVT present, extending from the superficial femoral vein to the peroneal vein Plan is to start anticoagulation therapy ID #Pneumonia Seen on CTA Plan is to follow-up with the cultures, continue antibiotics, de-escalate as needed Continue monitoring respiratory status and oxygenation #History of coccidiomycosis Serology + for IgG since 2021 Per daughter patient did receive treatment but she is not sure for how long and if he completed the course Can be persistent IgG if tx completed. Home medication were at bedside, patient does not have any fluconazole at home Disposition: ICU admission due to septic shock secondary due to pneumonia requiring vasopressors DVT prophylaxis: On heparin drip GI prophylaxis: PPI Diet: N.p.o. Lines: PIV CODE STATUS:Full code Case was discussed with attending physician Dr.Alhalaibeh Triny Garduno MD PGY-3 Attending Provider Attestation/Addendum After examination of the patient and review of the clinical data I feel that this patient needs admission to the hospital for further treatment/evaluation. TOTAL CC TIME: 60 MIN TOTAL TIME: 60 Minutes of direct medical management and planning of care. I Axel Logan MD, attest that I was physically present for medina portions of evaluation, and examined patient, labs and imagings and plan of care were discussed with IM residents team, and I agree with the findings and plans documented above.
[2025-04-14] MEDS: cefTRIAXone 1 GM in SODIUM CHLORIDE 0.9% (Popper) 50 ML IV (06:45)
[2025-04-14] MEDS: AZITHROMYCIN INJ 500 MG in SODIUM CHLORIDE 0.9% 250 ML 250 ML 250 MG IV (06:52)
--- NOTE | 2025-04-14 06:52 | XR_ITS ---
Examination: CT brain head without contrast. 2-D sagittal coronal reconstructions Date and time of exam:April 14, 2025 1035 hours INDICATIONS: Patient fell this week with injury to the head, head pain altered mental status confusion difficulty with speech CTDI: vol (mGy):55.3 DLP: (mGycm):1066 Technique: Multiple CT axial sections of the brain have been obtained, 5 mm slice thickness. Contrast has not been administered. 2-D sagittal, coronal reconstructions have been obtained Low dose protocols were performed. One or more of the following dose reduction techniques were used; automated exposure control, adjustment of the mA and/or KV according to patient size, use of iterative reconstruction technique. Findings: Mild ventricular enlargement. Intra-axial or extra-axial hemorrhage density is not seen. No mass effect or midline shift Basal cisterns are not remarkable. Fourth ventricle is midline. Cranial vault intact. Impression: Negative for acute hemorrhage, mass effect or midline shift Advise clinical correlation and follow-up accordingly
[2025-04-14 07:01] LABS: Lactate (Lactic Acid) 2.6 mMol/L (0.4-2.0)
[2025-04-14] MEDS: Vancomycin Inj 2,000 MG in SODIUM CHLORIDE 0.9% 500 ML 500 ML 150 MG IV (07:59)
--- NOTE | 2025-04-14 08:11 | PC.NURSE ---
report given to Maureen GREENFIELD, Patient transferring to room 251.
--- NOTE | 2025-04-14 08:15 | XR_ITS ---
Examination: Abdomen AP single view Technique: AP portable supine abdomen, single view Exam date and time: April 14, 2025 0840 hours INDICATIONS: Abdominal distention today. FINDINGS: Large amounts of stool throughout the colon. No obstruction No free air. Severe osteopenia IMPRESSION: Large amounts of stool throughout the colon No obstruction
[2025-04-14 08:28] LABS: Basophils # (Auto) 0.0 Thou/mm3 (0.0-0.2); Basophils % (Auto) 0 % (0-2.5); Eosinophils # (Auto) 0.0 Thou/mm3 (0.0-0.5); Eosinophils % (Auto) 0 % (0-10); Hematocrit 40.1 % (41.0-53.0); Hemoglobin 13.0 g/dL (13.5-16.0); Immature Granulocytes Auto 0.08 Thou/mm3 (0.00-0.00); Lymphocytes # (Auto) 0.3 Thou/mm3 (1.0-4.8); Lymphocytes % (Auto) 3 % (10-50); Mean Corpuscular HGB Conc 32.4 g/dl (31.0-37.0); Mean Corpuscular Hemoglobin 30.3 pg (25.0-35.0); Mean Corpuscular Volume 94 fL (80-100); Monocytes # (Auto) 0.1 Thou/mm3 (0.0-0.8); Monocytes % (Auto) 1 % (0-12); Neutrophils # (Auto) 9.7 Thou/mm3 (1.8-7.7); Neutrophils % (Auto) 95 % (37-80); Nucleated Red Blood Cell # 0.00 Thou/mm3 (0.00-0.00); Nucleated Red Blood Cell % 0 /100 WBC (0); Platelet Count 172 Thou/mm3 (140-440); RDW Standard Deviation 44.5 fL (35.1-43.9); Red Blood Count 4.29 Miln/mm3 (4.50-5.90); White Blood Count 10.2 Thou/mm3 (3.8-10.6)
[2025-04-14 09:07] LABS: Albumin, Serum 3.6 gm/dL (3.4-4.8); Anion Gap 17 (7-16); BUN/Creatinine Ratio 15 Ratio (12-20); Blood Urea Nitrogen 19 mg/dL (9-23); Calcium 8.9 mg/dL (8.3-10.6); Calcium (Corrected) 9.2 mg/dL (8.5-10.1); Carbon Dioxide 16.2 mMol/L (20.0-31.0); Cardiac Risk Estimate 4.0 RATIO (4.0-6.7); Chloride 111 mMol/L (98-107); Cholesterol 163 mg/dL (132-200); Creatinine (Component) 1.3 mg/dL (0.6-1.3); Estimated Creatinine Clearance 49.9 mL/min (>60); Glucose 154 mg/dL (74-106); HDL Cholesterol 41 mg/dL (40-60); LDL Cholesterol,Calculated 111 mg/dL (0-130); Magnesium 2.0 mg/dL (1.6-2.6); Osmolality,Calculated 292 (275-295); Phosphorous 2.3 mg/dL (2.4-5.1); Potassium 4.0 mMol/L (3.4-5.1); Sodium 144 mMol/L (136-145); Triglycerides 56 mg/dL (30-150); eGFR 59 See Note
[2025-04-14] MEDS: ACETAMINOPHEN 325 MG TABLET 650 MG PO (09:36)
[2025-04-14 10:00] LABS: Reflex Lactate? Y
[2025-04-14 11:29] LABS: Lactic Acid, 3 HR 2.3 mMol/L (0.4-2.0)
[2025-04-14 14:50] LABS: Partial Thromboplastin Time > 139.0 Seconds (22.0-36.0)
[2025-04-14] MEDS: METOCLOPRAMIDE INJ 5 MG/ML VIAL 2 ML IVP (15:56)
--- NOTE | 2025-04-14 16:49 | ESPR_ITS ---
Documentation for date of: 04/14/25 Subjective Subjective Interval history: ICU downgrade for 69-year-old male with past medical history of Alzheimer's dementia, Parkinson's, BPH, hypertension, coccidiomycosis infection, pacemaker for sick sinus syndrome who presented to the ED on 04/13 with episodes of generalized weakness, cough, hiccups that started about 3 days ago. History taken mostly from patient's son who is bedside stated that for the past several months patient has been progressively worsening in regards to his mental status and activities of daily living. Apparently patient has been largely bedbound and requires assistance to move around the house. Patient's son states that both he and his siblings are too far away to take care of him and patient's has difficulty taking care of him. Patient was upgraded to ICU as there was initially suspicion for septic shock secondary to pneumonia as MAP was below 65; however, patient improved and did not require pressors. Patient's biggest concern remains respiratory system at which point imaging studies including chest CTA and venous Doppler study showed extensive DVT of the right lower extremity and PE in the left lower lobe. Patient started on heparin drip and clinically is improving. Exam Vital Signs Temp Pulse Resp BP Pulse Ox O2 Del Method O2 Flow Rate 97.8 F 64 17 117/73 98 Nasal Cannula 4 04/14/25 15:00 04/14/25 15:00 04/14/25 15:00 04/14/25 15:00 04/14/25 15:00 04/14/25 07:45 04/14/25 14:40 FiO2 3 04/14/25 14:01 Narrative Exam Physical Exam: GENERAL: Awake, nonsensical comments, appears stated age HEENT: NC/AT. Moist mucosa. PERRLA/EOMI. CARDIO: Heart RRR, no obvious murmurs, no JVD. PULM: No coughing or visible SOB. Lungs CTA B/L. GI: Abdomen soft, NT/ND, +BS. SKIN/MSK/EXT: No wounds/discoloration/rashes/edema/amputations. +Pedal pulses present B/L. NEURO: Oriented x0. Cogwheel rigidity noted with tremors. Moves extremities x4, no focal neurologic deficits noted. Objective Labs 04/15/25 04:42 04/15/25 04:42 Labs: Laboratory Results - last 24 hr 04/13/25 04/13/25 04/14/25 21:43 22:00 01:29 WBC 11.4 H RBC 5.16 Hgb 15.7 Hct 47.0 MCV 91 MCH 30.4 MCHC 33.4 RDW Std Deviation 43.8 Plt Count 192 Neut % (Auto) 89 H Lymph % (Auto) [address] [facility] % (Auto) 6 Eos % (Auto) 0 Baso % (Auto) 0 Neut # (Auto) 10.1 H Lymph # (Auto) 0.[address] [facility] # (Auto) 0.6 Eos # (Auto) 0.0 Baso # (Auto) 0.0 Immature Gran # (Auto) 0.07 H Absolute Nucleated RBC 0.00 Immature Gran % 1 H Nucleated RBC % 0 ESR 45 H PT INR APTT D-Dimer > 3820 H Puncture Site ABG pH ABG pCO2 ABG pO2 ABG HCO3 ABG O2 Saturation ABG Base Excess Oxygen Liter Flow FiO2 Sodium 140 Potassium 4.5 Chloride 104 Carbon Dioxide 26.1 Anion Gap 10 BUN 32 H Creatinine 2.0 H Estim Creat Clear Calc 32.4 L eGFR 35 L BUN/Creatinine Ratio 16 Glucose 143 H Calculated Osmolality 288 Lactic Acid 3.1 H 1.6 Calcium 9.6 Corrected Calcium 9.6 Phosphorus Magnesium 2.3 Total Bilirubin 0.9 Direct Bilirubin 0.3 AST 25 ALT 23 Alkaline Phosphatase 144 H Troponin I < 0.020 C-Reactive Prot, Quant 17.7 H B-Natriuretic Peptide 55 Total Protein 7.4 Albumin 4.3 Globulin 3.1 Albumin/Globulin Ratio 1.4 Triglycerides Cholesterol LDL Cholesterol, Calc HDL Cholesterol Cholesterol/HDL Ratio Procalcitonin 0.45 TSH 0.92 Ur Collection Type Clean Catch Urine Color Yellow Urine Clarity Clear Urine pH 6.0 Ur Specific [place] 1.026 Urine Protein Trace Urine Glucose (UA) Negative Urine Ketones 2+ A Urine Blood Negative Urine Nitrite Negative Urine Bilirubin Negative Urine Urobilinogen (Auto) 2.0 Ur Leukocyte Esterase Negative Urine RBC < 1 Urine WBC 1 Ur Squamous Epith Cells < 1 Urine Bacteria None Hyaline Casts < 1 Ur Culture Indicated? Not Indicated 04/14/25 04/14/25 04/14/25 04:00 04:25 06:29 WBC 10.2 RBC 4.29 L Hgb 13.0 L D Hct 40.1 L MCV 94 MCH 30.3 MCHC 32.4 RDW Std Deviation 44.5 H Plt Count 172 Neut % (Auto) 95 H Lymph % (Auto) [address] [facility] % (Auto) 1 Eos % (Auto) 0 Baso % (Auto) 0 Neut # (Auto) 9.7 H Lymph # (Auto) 0.[address] [facility] # (Auto) 0.1 Eos # (Auto) 0.0 Baso # (Auto) 0.0 Immature Gran # (Auto) 0.08 H Absolute Nucleated RBC 0.00 Immature Gran % 1 H Nucleated RBC % 0 ESR PT 12.7 H INR 1.2 APTT 26.9 D-Dimer Puncture Site Right Radial ABG pH 7.35 ABG pCO2 38 ABG pO2 94 ABG HCO3 21 ABG O2 Saturation 98 ABG Base Excess -4 L Oxygen Liter Flow 2 FiO2 28 Sodium 144 Potassium 4.0 D Chloride 111 H Carbon Dioxide 16.2 L Anion Gap 17 H BUN 19 Creatinine 1.3 D Estim Creat Clear Calc 49.9 L eGFR 59 L BUN/Creatinine Ratio 15 Glucose 154 H Calculated Osmolality 292 Lactic Acid 2.6 H Calcium 8.9 Corrected Calcium 9.2 Phosphorus 2.3 L Magnesium 2.0 Total Bilirubin Direct Bilirubin AST ALT Alkaline Phosphatase Troponin I C-Reactive Prot, Quant B-Natriuretic Peptide Total Protein Albumin 3.6 D Globulin Albumin/Globulin Ratio Triglycerides 56 Cholesterol 163 LDL Cholesterol, Calc 111 HDL Cholesterol 41 Cholesterol/HDL Ratio 4.0 Procalcitonin TSH Ur Collection Type Urine Color Urine Clarity Urine pH Ur Specific [place] Urine Protein Urine Glucose (UA) Urine Ketones Urine Blood Urine Nitrite Urine Bilirubin Urine Urobilinogen (Auto) Ur Leukocyte Esterase Urine RBC Urine WBC Ur Squamous Epith Cells Urine Bacteria Hyaline Casts Ur Culture Indicated? 04/14/25 04/14/25 11:20 12:25 WBC RBC Hgb Hct MCV MCH MCHC RDW Std Deviation Plt Count Neut % (Auto) Lymph % (Auto) [facility] % (Auto) Eos % (Auto) Baso % (Auto) Neut # (Auto) Lymph # (Auto) [facility] # (Auto) Eos # (Auto) Baso # (Auto) Immature Gran # (Auto) Absolute Nucleated RBC Immature Gran % Nucleated RBC % ESR PT INR APTT > 139.0 H* D D-Dimer Puncture Site ABG pH ABG pCO2 ABG pO2 ABG HCO3 ABG O2 Saturation ABG Base Excess Oxygen Liter Flow FiO2 Sodium Potassium Chloride Carbon Dioxide Anion Gap BUN Creatinine Estim Creat Clear Calc eGFR BUN/Creatinine Ratio Glucose Calculated Osmolality Lactic Acid 2.3 H Calcium Corrected Calcium Phosphorus Magnesium Total Bilirubin Direct Bilirubin AST ALT Alkaline Phosphatase Troponin I C-Reactive Prot, Quant B-Natriuretic Peptide Total Protein Albumin Globulin Albumin/Globulin Ratio Triglycerides Cholesterol LDL Cholesterol, Calc HDL Cholesterol Cholesterol/HDL Ratio Procalcitonin TSH Ur Collection Type Urine Color Urine Clarity Urine pH Ur Specific [place] Urine Protein Urine Glucose (UA) Urine Ketones Urine Blood Urine Nitrite Urine Bilirubin Urine Urobilinogen (Auto) Ur Leukocyte Esterase Urine RBC Urine WBC Ur Squamous Epith Cells Urine Bacteria Hyaline Casts Ur Culture Indicated? ABG Interpretation ABG results: 04/14/25 04:25 ABG pH 7.35 ABG pCO2 38 ABG pO2 94 ABG HCO3 21 ABG O2 Saturation 98 ABG Base Excess -4 L Quality Measures Quality Measures none Advance care planning discussed with:: spouse and child Assessment & Plan Assessment Current Active Medications: Generic Name Dose Route Start Last Admin Trade Name Freq PRN Reason Stop Dose Admin Acetaminophen 650 mg 04/14/25 05:15 04/14/25 09:36 Acetaminophen 325 Mg Tablet PO 05/14/25 05:14 650 mg Q6H PRN Administration PAIN OR FEVER > 101 Heparin Sodium/Dextrose 25,000 unit in 250 mls @ 14.451 mls/hr 04/14/25 04:45 04/14/25 16:13 Heparin In D5w Ivpb IV 04/28/25 04:44 15 units/kg/hr .[id number] ARIANA 12.043 mls/hr Titration Protocol 18 UNITS/KG/HR Azithromycin 500 mg/ Sodium 250 mls @ 250 mls/hr 04/15/25 09:00 Chloride IV 04/22/25 08:59 QDAY ARIANA Ceftriaxone Sodium/Dextrose 1 gm in 50 mls @ 100 mls/hr 04/15/25 09:00 Rocephin/D5w 1gm Iv Premix IV 04/22/25 08:59 QDAY [facility] Ondansetron HCl 4 mg 04/14/25 05:15 Ondansetron Inj 2 Mg/Ml Inj 2 Ml IVP 05/14/25 05:14 Q6H PRN NAUSEA OR VOMITING Protocol Pantoprazole Sodium 40 mg 04/14/25 09:00 04/14/25 09:35 Pantoprazole Inj 40 Mg Vial IVP 05/14/25 08:59 40 mg QDAY ARIANA Administration Plan 69-year-old male with past medical history of Alzheimer's dementia, Parkinson's, BPH, hypertension, coccidiomycosis infection, pacemaker for sick sinus syndrome who presented to the ED on 04/13 with episodes of generalized weakness, cough, hiccups found to have DVT of right lower extremity along with PE of the left lower lobe along with mild pneumonia. #Left lower pulmonary embolism #Provoked PE #Right lower extremity DVT As noted in HPI, patient presented with episode of shortness of breath, cough and hiccups; bedbound for months per family Initial chest x-ray did not show any active disease but there was some atelectasis EKG showed sinus rhythm with occasional PVCs Chest CTA showed positive for pulmonary artery emboli in the left lower lobe pulmonary artery branches, pneumonia both bases and cholelithiasis Venous Doppler study showed extensive acute right leg DVT Head CT did not show any active disease Plan: Continue IV heparin, will transition to p.o. anticoagulant Monitor coagulation panel, follow protocol for heparin infusion #Community-acquired PNA #Lactic Acidosis #Initially septic shock, resolved As noted above and assess CTA there is some concern for pneumonia In the ED patient's BP with MAP <65 and lactic acid present even with fluids so pressors were momentarily started - but discontinued shortly thereafter Patient clinically appears stable without any symptoms of pneumonia, no fever and no WBC Patient does have some lactic acidosis and anion gap moderately elevated at 17 Plan: Will continue treating with IV antibiotics, ceftriaxone and azithromycin Monitor lactic acid #Pacemaker placement 09/13 #Sick sinus syndrome Chronic medical history Plan: Cardiology consulted for recommendations regarding pacemaker functionality #History of Coccidiomycosis infection Chronic medical condition, patient has been treated with antifungals per family Plan: Follow-up with primary care physician upon discharge #Alzheimer's Dementia #Parkinsons' disease? Patient on home baclofen 10 mg p.o. every 8, donepezil 10 mg p.o. daily, memantine 10 mg p.o. twice daily, Seroquel 50 mg p.o. twice daily Plan: Restarted home medications #Normocytic Anemia Hemoglobin dropped from 15.7-13.0 within 24 hours Low suspicion for acute blood loss anemia as there is no clear signs of blood loss Differentials include: Iron deficiency anemia, anemia of chronic disease, vitamin deficiency but less likely to be hemolytic anemia or myelosuppression Plan: Follow-up on iron panel, ferritin and reticulocyte count Health Maintenance: Lines: PIV Diet: Regular Bowel: Senna GI prophylaxis: Not needed DVT prophylaxis: Heparin drip Dispo: Will transition heparin drip to p.o. anticoagulant, likely SNF placement Code: Full Patient seen and assessed with attending Dr. Devonte Ross DO PGY-2 Internal Medicine - GME Attending Provider Attestation/Addendum Tala Jerome DO, attest that I was physically present for the [place] portions of the service and evaluated the patient with the resident and I reviewed and discussed the case with the resident and agree with the resident's findings and plans of care as documented above Patient seen and evaluated this afternoon. Patient had been experiencing several days of hiccups that prompted the family to bring patient to the hospital. Patient would be having hiccups at rest which would increase in frequency such that he appeared to gasp for air. Patient has dementia and is nonverbal and bedbound at baseline. Upon evaluation to the ED, patient was found to be hypotensive with left shift of WBC. CTA was done showing evidence of left lower lobe PE and mild pneumonia. Patient also noted to have extensive DVT in right leg. Patient was admitted to ICU for hypotension, but has not required vasopressor support. Patient is to be downgraded to hospitalist service. Will continue with IV abx and heparin drip at this time. Cardiology had been consulted and will f/u with recommendations. Echo ordered.
--- NOTE | 2025-04-14 16:58 | ESPR_ITS ---
<Statement entered by Jorge Kohli MD - 04/14/25 20:18> Patient is a 69-year-old male with a past medical history Alzheimer's, HTN, sick sinus syndrome status post dual-chamber pacemaker who presented with a chief complaint of weakness and hiccups. Upon presenting to the ED he was found to be hypotensive, CTA and lower extremity duplex showed right lower limb DVT as well as bilateral subsegmental PE. Problem list Community-acquired pneumonia Alzheimer's dementia Sick sinus syndrome s/p dual-chamber pacemaker placement DVT Bilateral subsegmental pulmonary embolism Patient is on ceftriaxone and azithromycin for community-acquired pneumonia. Also heparin infusion was started for pulmonary embolism, currently patient is on 2L O2 via nasal cannula and currently being weaned off. At this point patient is not requiring vasopressor support for blood pressure and is clinically stable for downgrade to telemetry Documentation for date of: 04/14/25 Subjective Subjective Interval history: Patient is 69-year-old male with past medical history of hypertension, BPH, valley fever, Alzheimer disease diagnosed about 5 years ago, history of sick sinus syndrome status post dual-chamber pacemaker placement was presented to ED with chief complaints of generalized weakness, cough, shortness of breath and hiccups that started about 3 days ago. Due to dementia history mainly taken from the family members at bedside. Daughter was at bedside and stated that he was progressively getting worse for the last 6 months mentation [place]. For the last 3 days he was not acting himself, had increased cough, and was breathing faster than usual. Patient himself is completely dependent on his daily activities and was not even able to tell the family he is main complaints. On arrival patient was hypotensive, with MAP of below 65, patient was saturating 96% on 2 L nasal cannula, afebrile, respiratory rate of 18, heart rate of 99. Labs revealed BUN of 32, creatinine of 2, EGFR of 36, glucose of 143, lactic acid was 3.1, Pro-Artis was within normal limits. CMP revealed mild leukocytosis with WBC of 11.4, with left shift. Elevated CRP and ESR also noted. Chest x- ray showed mild atelectasis on the right base. Due to concern of PE venous Doppler ultrasound was ordered which revealed occlusive thrombus extending from the right superficial femoral vein to the peroneal vein. CT angio was done which revealed pulmonary emboli in the subsegmental branches of the left lower lobe pulmonary artery without CT evidence of increased pulmonary pressures. Bilateral lower lobe pneumonia. Coronary artery calcifications. Small hiatal hernia. In ED patient received breathing treatment with DuoNebs, methylprednisone, antibiotics, cultures were drawn. Patient received total of 3 L of normal saline, however MAP was still below 65, at that point patient started on Levophed and was admitted to ICU for septic shock secondary due to pneumonia. PMH as above Medication, tamsulosin, donepezil, memantine, lisinopril Allergies NKDA Social history lives with the , completely dependent on his daily activities. is a primary caregiver Interval History 04/14/25: No overnight events. Patient seen and examined at bedside; they report feeling generally well today with no new complaints except for ongoing hiccups. The following was taken from Dr. Kohli, PGY-2's attestation with minor changes. Patient is on ceftriaxone and azithromycin for community-acquired pneumonia. He was also started on heparin infusion for pulmonary embolism. Currently, patient is on 2L O2 via nasal cannula and currently being weaned off. At this point, patient is not requiring vasopressor support for blood pressure and is clinically stable for downgrade to telemetry. Exam Vital Signs Temp Pulse Resp BP Pulse Ox O2 Del Method O2 Flow Rate 97.8 F 64 17 117/73 98 Nasal Cannula 4 04/14/25 15:00 04/14/25 15:00 04/14/25 15:00 04/14/25 15:00 04/14/25 15:00 04/14/25 07:45 04/14/25 14:40 FiO2 3 04/14/25 14:01 Narrative Exam GENERAL: Not able to communicate due to underlying dementia, however peacefully laying in bed, not in acute distress HEENT: Head AT/ NC. Mucous membranes moist. NECK: Supple, no lymphadenopathy, no carotid bruits. CARDIOVASCULAR: RRR. Normal S1/S2, No m/r/g. 1+ pitting edema of bilateral LEs. Pacemaker noted, left chest RESPIRATORY: No wheezing, no crackles GASTROINTESTINAL: Abdomen soft, non tender no palpable masses. Bowel sounds present in all 4 quadrants. MUSCULOSKELETAL:? No cyanosis or edema, no visible joint swelling. NEUROLOGICAL: Limited due to underlying dementia INTEGUMENTARY: No obvious rashes, no jaundice, normal turgor. Objective Labs 04/16/25 05:50 04/16/25 05:50 Labs: Laboratory Results - last 24 hr 04/13/25 04/13/25 04/14/25 21:43 22:00 01:29 WBC 11.4 H RBC 5.16 Hgb 15.7 Hct 47.0 MCV 91 MCH 30.4 MCHC 33.4 RDW Std Deviation 43.8 Plt Count 192 Neut % (Auto) 89 H Lymph % (Auto) 5 L [place] % (Auto) 6 Eos % (Auto) 0 Baso % (Auto) 0 Neut # (Auto) 10.1 H Lymph # (Auto) 0.5 L [place] # (Auto) 0.6 Eos # (Auto) 0.0 Baso # (Auto) 0.0 Immature Gran # (Auto) 0.07 H Absolute Nucleated RBC 0.00 Immature Gran % 1 H Nucleated RBC % 0 ESR 45 H PT INR APTT D-Dimer > 3820 H Puncture Site ABG pH ABG pCO2 ABG pO2 ABG HCO3 ABG O2 Saturation ABG Base Excess Oxygen Liter Flow FiO2 Sodium 140 Potassium 4.5 Chloride 104 Carbon Dioxide 26.1 Anion Gap 10 BUN 32 H Creatinine 2.0 H Estim Creat Clear Calc 32.4 L eGFR 35 L BUN/Creatinine Ratio 16 Glucose 143 H Calculated Osmolality 288 Lactic Acid 3.1 H 1.6 Calcium 9.6 Corrected Calcium 9.6 Phosphorus Magnesium 2.3 Total Bilirubin 0.9 Direct Bilirubin 0.3 AST 25 ALT 23 Alkaline Phosphatase 144 H Troponin I < 0.020 C-Reactive Prot, Quant 17.7 H B-Natriuretic Peptide 55 Total Protein 7.4 Albumin 4.3 Globulin 3.1 Albumin/Globulin Ratio 1.4 Triglycerides Cholesterol LDL Cholesterol, Calc HDL Cholesterol Cholesterol/HDL Ratio Procalcitonin 0.45 TSH 0.92 Ur Collection Type Clean Catch Urine Color Yellow Urine Clarity Clear Urine pH 6.0 Ur Specific [place] 1.026 Urine Protein Trace Urine Glucose (UA) Negative Urine Ketones 2+ A Urine Blood Negative Urine Nitrite Negative Urine Bilirubin Negative Urine Urobilinogen (Auto) 2.0 Ur Leukocyte Esterase Negative Urine RBC < 1 Urine WBC 1 Ur Squamous Epith Cells < 1 Urine Bacteria None Hyaline Casts < 1 Ur Culture Indicated? Not Indicated 04/14/25 04/14/25 04/14/25 04:00 04:25 06:29 WBC 10.2 RBC 4.29 L Hgb 13.0 L D Hct 40.1 L MCV 94 MCH 30.3 MCHC 32.4 RDW Std Deviation 44.5 H Plt Count 172 Neut % (Auto) 95 H Lymph % (Auto) 3 L [place] % (Auto) 1 Eos % (Auto) 0 Baso % (Auto) 0 Neut # (Auto) 9.7 H Lymph # (Auto) 0.3 L [place] # (Auto) 0.1 Eos # (Auto) 0.0 Baso # (Auto) 0.0 Immature Gran # (Auto) 0.08 H Absolute Nucleated RBC 0.00 Immature Gran % 1 H Nucleated RBC % 0 ESR PT 12.7 H INR 1.2 APTT 26.9 D-Dimer Puncture Site Right Radial ABG pH 7.35 ABG pCO2 38 ABG pO2 94 ABG HCO3 21 ABG O2 Saturation 98 ABG Base Excess -4 L Oxygen Liter Flow 2 FiO2 28 Sodium 144 Potassium 4.0 D Chloride 111 H Carbon Dioxide 16.2 L Anion Gap 17 H BUN 19 Creatinine 1.3 D Estim Creat Clear Calc 49.9 L eGFR 59 L BUN/Creatinine Ratio 15 Glucose 154 H Calculated Osmolality 292 Lactic Acid 2.6 H Calcium 8.9 Corrected Calcium 9.2 Phosphorus 2.3 L Magnesium 2.0 Total Bilirubin Direct Bilirubin AST ALT Alkaline Phosphatase Troponin I C-Reactive Prot, Quant B-Natriuretic Peptide Total Protein Albumin 3.6 D Globulin Albumin/Globulin Ratio Triglycerides 56 Cholesterol 163 LDL Cholesterol, Calc 111 HDL Cholesterol 41 Cholesterol/HDL Ratio 4.0 Procalcitonin TSH Ur Collection Type Urine Color Urine Clarity Urine pH Ur Specific [place] Urine Protein Urine Glucose (UA) Urine Ketones Urine Blood Urine Nitrite Urine Bilirubin Urine Urobilinogen (Auto) Ur Leukocyte Esterase Urine RBC Urine WBC Ur Squamous Epith Cells Urine Bacteria Hyaline Casts Ur Culture Indicated? 04/14/25 04/14/25 11:20 12:25 WBC RBC Hgb Hct MCV MCH MCHC RDW Std Deviation Plt Count Neut % (Auto) Lymph % (Auto) [place] % (Auto) Eos % (Auto) Baso % (Auto) Neut # (Auto) Lymph # (Auto) [place] # (Auto) Eos # (Auto) Baso # (Auto) Immature Gran # (Auto) Absolute Nucleated RBC Immature Gran % Nucleated RBC % ESR PT INR APTT > 139.0 H* D D-Dimer Puncture Site ABG pH ABG pCO2 ABG pO2 ABG HCO3 ABG O2 Saturation ABG Base Excess Oxygen Liter Flow FiO2 Sodium Potassium Chloride Carbon Dioxide Anion Gap BUN Creatinine Estim Creat Clear Calc eGFR BUN/Creatinine Ratio Glucose Calculated Osmolality Lactic Acid 2.3 H Calcium Corrected Calcium Phosphorus Magnesium Total Bilirubin Direct Bilirubin AST ALT Alkaline Phosphatase Troponin I C-Reactive Prot, Quant B-Natriuretic Peptide Total Protein Albumin Globulin Albumin/Globulin Ratio Triglycerides Cholesterol LDL Cholesterol, Calc HDL Cholesterol Cholesterol/HDL Ratio Procalcitonin TSH Ur Collection Type Urine Color Urine Clarity Urine pH Ur Specific [place] Urine Protein Urine Glucose (UA) Urine Ketones Urine Blood Urine Nitrite Urine Bilirubin Urine Urobilinogen (Auto) Ur Leukocyte Esterase Urine RBC Urine WBC Ur Squamous Epith Cells Urine Bacteria Hyaline Casts Ur Culture Indicated? ABG Interpretation ABG results: 04/14/25 04:25 ABG pH 7.35 ABG pCO2 38 ABG pO2 94 ABG HCO3 21 ABG O2 Saturation 98 ABG Base Excess -4 L Quality Measures Quality Measures none Advance care planning discussed with:: patient Assessment & Plan Assessment Current Active Medications: Generic Name Dose Route Start Last Admin Trade Name Freq PRN Reason Stop Dose Admin Acetaminophen 650 mg 04/14/25 05:15 04/14/25 09:36 Acetaminophen 325 Mg Tablet PO 05/14/25 05:14 650 mg Q6H PRN Administration PAIN OR FEVER > 101 Heparin Sodium/Dextrose 25,000 unit in 250 mls @ 14.451 mls/hr 04/14/25 04:45 04/14/25 16:13 Heparin In D5w Ivpb IV 04/28/25 04:44 15 units/kg/hr .[id number] ARIANA 12.043 mls/hr Titration Protocol 18 UNITS/KG/HR Azithromycin 500 mg/ Sodium 250 mls @ 250 mls/hr 04/15/25 09:00 Chloride IV 04/22/25 08:59 QDAY ARIANA Ceftriaxone Sodium/Dextrose 1 gm in 50 mls @ 100 mls/hr 04/15/25 09:00 Rocephin/D5w 1gm Iv Premix IV 04/22/25 08:59 QDAY ARIANA Ondansetron HCl 4 mg 04/14/25 05:15 Ondansetron Inj 2 Mg/Ml Inj 2 Ml IVP 05/14/25 05:14 Q6H PRN NAUSEA OR VOMITING Protocol Pantoprazole Sodium 40 mg 04/14/25 09:00 04/14/25 09:35 Pantoprazole Inj 40 Mg Vial IVP 05/14/25 08:59 40 mg QDAY ARIANA Administration Plan 69-year-old male with past medical history of BPH, hypertension, sick sinus syndrome status post pacemaker placement, Alzheimer disease was admitted to ICU for septic shock 2/2 CAP requiring pressor support along with managment for PE and DVT. Patient is on ceftriaxone and azithromycin for community-acquired pneumonia. He was also started on heparin infusion for pulmonary embolism. Currently, patient is on 2L O2 via nasal cannula and currently being weaned off. At this point, patient is not requiring vasopressor support for blood pressure and is clinically stable for downgrade to telemetry. [employer] #Alzheimer's dementia Continue supportive care for Alzheimer disease Resume home medication after med rec is completed [facility] #Sick sinus syndrome s/p dual-chamber pacemaker placement No new arrhythmias or pacemaker malfunction noted Plan is to continue current management, consider cardiology consult. Respiratory #Bilateral subsegmental pulmonary embolism No signs of right heart strain/ Pulmonary HTN on CT Per daughter patient has not been ambulating because of frequent falls, likely putting him at risk for DVT/PE Plan is to start anticoagulation therapy with heparin drip Monitor for signs of bleeding, further hemodynamic instability Echo pending GI No active disease Renal No active disease Endo No active disease Hematology #DVT Right lower extremity DVT present, extending from the superficial femoral vein to the peroneal vein Plan is to start anticoagulation therapy with heparin drip ID #Community-acquired pneumonia Seen on CTA Being treated for with ceftriaxone and azithromycin Continue monitoring respiratory status and oxygenation Disposition: clinically stable for downgrade to telemetry DVT prophylaxis: On heparin drip GI prophylaxis: PPI Diet: N.p.o. Lines: PIV CODE STATUS: Full code Case was discussed with attending physician, Dr. Bautista. Julien Gauthier DO Internal Medicine, PGY-1 Attending Provider Attestation/Addendum Patient seen and examined with the above resident, Julien Gauthier DO. I agree with the findings, assessment, and plan of care as document except for any differences below. Patient seen in emergency department with significant hypotension despite fluid resuscitation appropriately for severe sepsis. Required vasopressor support briefly but by the time the patient arrived to the ICU the BP normalized and able to wean off appropriately. Imaging also showed significant subsegmental pulmonary emboli and heparin drip would be appropriate but is not absolutely indicated and is unlikely the precipitant for his hypotension. Patient also with notable DVT and most likely precipitated by chronic immobility. There is concern for superimposed pneumonia, and appropriate antibiotic regimen has been initiated with ceftriaxone and azithromycin for community-acquired acquired infection. Patient's daughter was at bedside and reports that the patient has had sharp decline in the last 1 year with increased urinary incontinence and requiring feeding to maintain nutrition. Patient now otherwise stable for transfer to telemetry for ongoing management prior to discharge. Await culture data to help narrow antibiotic regimen prior to discharge. Patient can be transition to [facility] on discharge. Total critical care time: I personally spent 35 minutes for review of physiologic parameters, directing plan of care throughout the day, coordination of care with other specialties, and counseling patient's family at bedside. This is exclusive of time spent teaching housestaff performing any separate billable procedures. Patient remains at significant risk for further morbidity and mortality warranting close monitoring and care only available ICU. Critical care services required for severe sepsis/septic shock, pulmonary embolism, community-acquired pneumonia, Alzheimer's disease.
--- NOTE | 2025-04-14 18:02 | ESCONSULT_ITS ---
<Statement entered by Julissa Forde MD - 04/14/25 22:54> I personally examined evaluated the patient who presents the hospital with hiccups and shortness of breath. History of dementia multiple medical problems came to the hospital pulmonary embolism and DVT of right lower extremity pulm embolism not massive or submassive only left lower lobe agree with IV heparin followed by Eliquis for next 6 months initially 10 mg twice daily for 7 days 5 mg twice daily for 6 months subsequently patient should be on lifelong anticoagulation Eliquis 2.5 twice daily because patient not very active highly probable that he will have recurrent pulmonary embolism because of unprovoked pulmonary emboli indication for lifelong preventive anticoagulation. Agree with the treatment plan recommendation as documented by Dr. Serrano PGY 2 will monitor the patient closely. HPI Data of Consult Consult date: 04/14/25 Requesting Physician: Axel Logan MD Admitting Provider: Axel Logan MD Attending Provider: Julissa Forde MD Primary Care Provider: Physician No Primary/Family Consult Narrative Reason for consult: Pulmonary Embolism History of present illness: History limited as patient has severe dementia, history was taken by family was at bedside. 69-year-old male with past medical history of hypertension, sick sinus syndrome status post dual-chamber pacemaker, BPH, history of valley fever, and advanced Alzheimer's disease who was brought to the ED due to generalized weakness, cough, shortness of breath which started around 3 days ago. Per the family who was at bedside patient has been declining since around 6 months ago due to severe dementia being mostly immobile for the past 6 months and practically bedbound, family has to physically carry the patient around as he is too weak to ambulate. He started develop some tremors as started on the right upper extremity which has now progressed to the whole body. These last 3 days while family was present the patient started having what seems to be hiccups, family took a video and looks like he is gasping for air with shortness of breath. In the ED patient was found to be hypotensive and was started on levophed. Had venous US which showed RLE DVT and CTA with PE in the left lower lobe pulmonary artery branches. ED course: Vitals on arrival BP 120/74, HR 99, RR 18, saturating 96% on room air. In the ED patient received DuoNebs, Solu-Medrol, antibiotics and cultures ordered. Patient was given 3 L of IV fluids however MAP was below 65 and was started on Levophed and admitted to the ICU for septic shock secondary to pneumonia. PMHx: as above SxHx: dual chamber pacemaker placement (2019) Social Hx: completely dependent on family for his daily activities FHx: unknown Cardiology Consulted for management of DVT and Pulmonary Embolism. cc:: cc: Axel Logan MD Review of Systems Review of Systems ROS Unobtainable: unobtainable due to medical condition Exam Vital Signs Temp Pulse Resp BP Pulse Ox O2 Del Method O2 Flow Rate 97.8 F 66 18 123/73 96 Nasal Cannula 4 04/14/25 15:00 04/14/25 17:00 04/14/25 17:00 04/14/25 17:00 04/14/25 17:00 04/14/25 07:45 04/14/25 14:40 FiO2 3 04/14/25 14:01 Narrative Exam GENERAL: NAD, mumbles when spoken to AAOx0 but at baseline mental status per family HEENT: Moist mucosa. Eyes open, symmetrical, & clear CARDIO: Heart RRR, no obvious murmurs PULM: No noted coughing/dyspnea CTA B/L, no R/W/R GI: Abdomen soft, nondistended, no pain on palpation. BSx4 SKIN/MSK/EXT: peripheral edema RLE, LLE minimal edema, no pain on palpation. Pedal pulses present B/L NEURO: Cogwheel rigidity noted with tremors, able to move all 4 extremities Results Labs 04/14/25 06:29 04/14/25 06:29 Labs: Short CBC 04/13/25 04/14/25 Range/Units 21:43 06:29 WBC 11.4 H 10.2 (3.8-10.6) Thou/mm3 Hgb 15.7 13.0 L D (13.5-16.0) g/dL Hct 47.0 40.1 L (41.0-53.0) % Plt Count 192 172 (140-440) Thou/mm3 BMP 04/13/25 04/14/25 21:43 06:29 Sodium 140 144 Potassium 4.5 4.0 D Chloride 104 111 H Carbon Dioxide 26.1 16.2 L BUN 32 H 19 Creatinine 2.0 H 1.3 D Glucose 143 H 154 H Calcium 9.6 8.9 Cardiac Enzymes 04/13/25 Range/Units 21:43 Troponin I < 0.020 (0.0-0.045) ng/mL Liver Function 04/13/25 04/14/25 Range/Units 21:43 06:29 Total Bilirubin 0.9 (0.3-1.2) mg/dL Direct Bilirubin 0.3 (0.0-0.3) mg/dL AST 25 (0-34) U/L ALT 23 (10-49) U/L Alkaline Phosphatase 144 H (46-116) U/L Albumin 4.3 3.6 D (3.4-4.8) gm/dL Urine 04/13/25 Range/Units 22:00 Urine Color Yellow (Lt Yel-Yel) Urine Clarity Clear (Clear/Hazy) Urine pH 6.0 (5.0-7.0) Ur Specific [employer] 1.026 (1.001-1.035) Urine Protein Trace (Neg - Trace) Urine Glucose (UA) Negative (Negative) ABG Interpretation ABG results: 04/14/25 04:25 ABG pH 7.35 ABG pCO2 38 ABG pO2 94 ABG HCO3 21 ABG O2 Saturation 98 ABG Base Excess -4 L Quality Measures Quality Measures none Advance care planning discussed with:: patient and child Medications Home Medications and Allergies Home Medications ?Medication ?Instructions ?Recorded ?Confirmed ?Type Seroquel 50 mg PO BID 04/14/25 History baclofen 10 mg tablet 10 mg PO Q8H 04/14/25 History benadryl 25 mg PO .QHS 04/14/2504/14 History donepezil 10 mg tablet 10 mg PO QDAY 04/14/2504/14 History escitalopram oxalate 20 mg tablet 20 mg PO QDAY 04/14/25 History famotidine 20 mg tablet (Pepcid) 20 mg PO BID 04/14/25 04/14/25 History levofloxacin 500 mg tablet 500 mg PO Q24H 04/14/2511/03 History lisinopril 10 mg tablet 10 mg PO QDAY 04/14/2504/14 History loratadine 10 mg tablet 10 mg PO Q24H 04/14/2504/14 History memantine 10 mg tablet 10 mg PO BID 04/14/25 History prednisone 20 mg tablet 20 mg PO QDAY 04/14/2504/14 History tamsulosin 0.4 mg capsule (Flomax) 0.4 mg PO QDAY 11/0304/14/25 History Allergies Allergy/AdvReac Type Severity Reaction Status Date / Time No Known Allergies Allergy Verified 04/13/25 20:38 Visit Medications Acetaminophen (Acetaminophen 325 Mg Tablet) 650 mg PO Q6H PRN PRN Reason: PAIN OR FEVER > 101 Stop: 05/14/25 05:14 Last Admin: 04/14/25 09:36 Dose: 650 mg Heparin Sodium/Dextrose (Heparin In D5w Ivpb) 25,000 unit in 250 mls @ 14.451 mls/hr IV .[id number] [facility]; Protocol Stop: 04/28/25 04:44 Last Titration: 04/14/25 16:13 Dose: 15 units/kg/hr, 12.043 mls/hr Azithromycin 500 mg/ Sodium (Chloride) 250 mls @ 250 mls/hr IV QDAY [facility] Stop: 04/22/25 08:59 Ceftriaxone Sodium/Dextrose (Rocephin/D5w 1gm Iv Premix) 1 gm in 50 mls @ 100 mls/hr IV QDAY [facility] Stop: 04/22/25 08:59 Ondansetron HCl (Ondansetron Inj 2 Mg/Ml Inj 2 Ml) 4 mg IVP Q6H PRN; Protocol PRN Reason: NAUSEA OR VOMITING Stop: 05/14/25 05:14 Pantoprazole Sodium (Pantoprazole Inj 40 Mg Vial) 40 mg IVP QDAY [facility] Stop: 05/14/25 08:59 Last Admin: 04/14/25 09:35 Dose: 40 mg Discontinued Medications Albuterol/Ipratropium (Albuterol/Ipratropium (Duoneb) Rt Yael 3 Ml Nebu) 3 ml INH X1 ONE Stop: 04/13/25 21:32 Last Admin: 04/13/25 21:57 Dose: 3 ml Diazepam (Diazepam Inj 5 Mg/Ml Vial 2 Ml) 5 mg IVP X1 ONE Stop: 04/14/25 00:28 Last Admin: 04/14/25 00:47 Dose: 5 mg Gabapentin (Gabapentin 300 Mg Capsule) 300 mg PO X1 ONE Stop: 04/14/25 15:06 Heparin Sodium (Porcine) (Heparin Sod Inj 5000 Unit/Ml Vial) 6,400 unit 80 unit/kg (6400 unit) IV X1 ONE; Protocol Stop: 04/14/25 04:43 Last Admin: 04/14/25 05:39 Dose: 6,400 unit Sodium Chloride (Ns) 1,000 mls @ 999 mls/hr IV .Q1H1M ONE Stop: 04/13/25 23:32 Last Infusion: 04/13/25 23:23 Dose: Infused Sodium Chloride (Ns) 1,000 mls @ 999 mls/hr IV .Q1H1M ONE Stop: 04/14/25 00:04 Last Infusion: 04/13/25 23:57 Dose: Infused Sodium Chloride (Ns) 1,000 mls @ 999 mls/hr IV .Q1H1M ONE Stop: 04/14/25 00:36 Last Infusion: 04/14/25 00:50 Dose: Infused Norepinephrine/Dextrose (Levophed In D5w 8mg/250ml) 8 mg in 250 mls @ 7.527 mls/hr IV .Q24H PRN; Protocol PRN Reason: PER PROTOCOL Stop: 05/14/25 00:17 Last Titration: 04/14/25 09:00 Dose: 0 mcg/kg/min, 0 mls/hr Cefepime HCl 2 gm/ Sodium (Chloride) 50 mls @ 100 mls/hr IV X1 ONE Stop: 04/14/25 05:10 Last Infusion: 04/14/25 06:01 Dose: Infused Vancomycin HCl 2,000 mg/ (Sodium Chloride) 500 mls @ 150 mls/hr IV X1 ONE Stop: 04/14/25 08:00 Last Admin: 04/14/25 07:59 Dose: 150 mls/hr Ceftriaxone Sodium/Dextrose (Rocephin/D5w 1gm Iv Premix) 1 gm in 50 mls @ 100 mls/hr IV QDAY [facility] Stop: 04/21/25 05:20 Azithromycin 500 mg/ Sodium (Chloride) 250 mls @ 250 mls/hr IV X1 ONE Stop: 04/14/25 07:14 Last Infusion: 04/14/25 08:01 Dose: Infused Ceftriaxone Sodium 1 gm/ (Sodium Chloride) 50 mls @ 100 mls/hr IV X1 ONE Stop: 04/14/25 06:44 Last Infusion: 04/14/25 07:23 Dose: Infused Methylprednisolone Sodium Succinate (Methylprednisolone Sod Succ 62.5 Mg/Ml 2ml Vial) 125 mg IVP X1 ONE Stop: 04/13/25 21:32 Last Admin: 04/13/25 22:04 Dose: 125 mg Metoclopramide HCl (Metoclopramide Inj 5 Mg/Ml Vial 2 Ml) 5 mg IVP X1 ONE; Protocol Stop: 04/14/25 15:52 Last Admin: 04/14/25 15:56 Dose: 5 mg Sodium Chloride (Sodium Chloride Rt 10% 15 Ml Nebu) 5 ml INH X1 ONE Stop: 04/14/25 05:16 Sodium Chloride (Sodium Chloride Rt 10% 15 Ml Nebu) 5 ml INH X1 ONE Stop: 04/14/25 06:53 Assessment & Plan Plan 69-year-old male with past medical history of hypertension, sick sinus syndrome status post dual-chamber pacemaker, BPH, history of valley fever, and advanced Alzheimer's disease who was brought to the ED due to generalized weakness, cough, shortness of breath which started around 3 days ago. Admitted to the ICU for septic shock secondary to pneumonia. Cardiology consulted for Pulmonary embolism and DVT. #Pulmonary embolism #Right lower extremity DVT Patient has been basically immobile for the past 6 months secondary to advanced Alzheimer's dementia. Per the family patient was able to ambulate with a walker, however past few months send has had had to physically carry the patient due to severe weakness. As patient has been immobile this is likely provoked PE due to prolonged immobilization Venous ultrasound of right lower extremity shows extensive acute right leg DVT right superficial femoral vein, popliteal veins CTA chest shows pulmonary artery emboli in the left lower lobe branches of the pulmonary arteries ? Continue heparin drip for at least 48 hours. ? Transition to Eliquis 10 mg twice daily X 7 days, later adjust dose to Eliquis 5 mg twice daily. #Sick sinus syndrome s/p dual chamber pacemaker placement Med[employer]onic pac[place] [address] Forde for symptomatic bradycardia and sick sinus syndrome Model [place] XE, programmed to dual-chamber mode, rate of 60-110 beats per minute, currently rate 78bpm #Community-acquired PNA #Lactic Acidosis #Septic shock-resolved #History of Coccidiomycosis infection #Alzheimer's Dementia #Parkinsons' disease? #Normocytic Anemia ? as per primary team. Case discussed with my attending Dr. Maurisio Serrano MD PGY-2 Disclaimer: Despite multiple revisions, due to the dictation software being used, the document bellow may not be free of grammatical errors including phonetic/typographic errors. However, this does not deter from our commitment to providing health care in the patient's best interest in mind.
--- NOTE | 2025-04-14 20:10 | PC.NURSE ---
2209-REVIEW CONSULTANT CALLED FOR NEW ONSET LEFT FACIAL DROOP. DAUGHTER AT BEDSIDE. PT AWAKE, CONFUSED AND MINIMALLY VERBAL AT BASELINE. FOLLOWS SOME COMMANDS. RN [facility] AT 2014-NEURO TELE, DR. CAMEJO, ASSESSING PT. 2034-PT TO CT BRAIN, CTA HEAD AND NECK 2046-PT TO XRAY
--- NOTE | 2025-04-14 20:16 | XR_ITS ---
Examination: CT brain head without contrast. 2-D sagittal coronal reconstructions Date and time of exam:April 14, 2025, 2031 hrs., Comparison April 14, 2025 10:35 AM Indications: Stroke alert, onset focal neurologic deficit today CTDI: vol (mGy):53.8 DLP: (mGycm):1077 Technique: Multiple CT axial sections of the brain have been obtained, 5 mm slice thickness. Contrast has not been administered. 2-D sagittal, coronal reconstructions have been obtained Low dose protocols were performed. One or more of the following dose reduction techniques were used; automated exposure control, adjustment of the mA and/or KV according to patient size, use of iterative reconstruction technique. Findings: Mild ventricular enlargement. Intra-axial or extra-axial hemorrhage density is not seen. No mass effect or midline shift Basal cisterns are not remarkable. Fourth ventricle is midline. Cranial vault intact. Impression: No interval acute hemorrhage, mass effect or midline shift
--- NOTE | 2025-04-14 20:16 | XR_ITS ---
Examination: CTA carotids with intravenous contrast CTA brain, head with intravenous contrast. 2-D sagittal, coronal reconstructions. 3-D reconstructions. Exam date and time: July 14, 2025 2040 hrs. Indications: Stroke alert today, onset focal neurologic deficit CTDI: vol (mGy) 11.7 DLP: (mGycm) 459 Technique: Multiple CTA axial brain, head carotid images post intravenous contrast injection 100 cc, [id number]. 2-D sagittal, coronal reconstructions. 3-D reconstructions, 3-D post processing including vascular maximum intensity projection images. Low dose protocols were performed. One or more of the following dose reduction techniques were used; automated exposure control, adjustment of the mA and/or KV according to patient size, use of iterative reconstruction technique. Findings: Multiple right thyroid nodules No significant common carotid carotid bifurcation or internal carotid artery stenoses. Dominant right vertebral artery no critical vertebral artery stenoses Basilar artery posterior cerebral branches fill with no large vessel occlusions Juxtasellar supraclinoid portions internal carotid arteries, M1 segments middle cerebral arteries middle cerebral artery trifurcation vessels, anterior cerebral arteries fill with no large vessel occlusions Impression: No significant neck arterial stenoses No cerebral large vessel arterial occlusions or thrombus
--- NOTE | 2025-04-14 20:16 | EKG_ITS ---
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
--- NOTE | 2025-04-14 20:16 | XR_ITS ---
Examination: AP chest single view Technique one AP semiupright portable chest single view Date and time: April 14, 20252049 hrs. Indications: Stroke alert 6 hours ago. Findings: Mild enlargement cardiac contour Satisfactory position chest meniscocapsular (cardiac leads. No aspiration pneumonia. Prominent osteopenia Impression: Negative for aspiration pneumonia No pulmonary edema
--- NOTE | 2025-04-14 20:17 | PD.RESEVENT ---
Documentation for date of: 04/14/25 Event Note Event Note: Around 8:09 PM RR was called for stroke like symptoms, new left facial droop noted by daughter and nurse. On arrival patient was stable and at baseline. Neuroexam unchanged from previous days. No acute focal neurological deficits noted, although exam itself was limited 2/2 dementia. Vitals were stable with BP 130/91, HR 79, he was satting well on room air, glucose within normal limits. HEPARIN ggt was held. Stroke protocol was initiated. Teleneuro recommended acute heart neurochecks, MRI to morning without contrast, and resuming HEPARIN gtt if no bleed on CT. Head CT and Head/Neck CTA showed no acute pathology, occlusion or bleed. HEPARIN ggt was resumed. Patient remained hemodynamically stable. HELD HEPARIN drip and MEMANTINE, METOCLOPRAMIDE, DONEPEZIL Case was discussed with attending physician, Dr. Logan. Adia Schmidt, PGY II This document was transcribed using voice recognition technology. Minor inaccuracies may be present.
[2025-04-14 20:29] LABS: Basophils # (Auto) 0.0 Thou/mm3 (0.0-0.2); Basophils % (Auto) 0 % (0-2.5); Eosinophils # (Auto) 0.0 Thou/mm3 (0.0-0.5); Eosinophils % (Auto) 0 % (0-10); Hematocrit 38.4 % (41.0-53.0); Hemoglobin 12.9 g/dL (13.5-16.0); Immature Granulocytes Auto 0.17 Thou/mm3 (0.00-0.00); Lymphocytes # (Auto) 0.8 Thou/mm3 (1.0-4.8); Lymphocytes % (Auto) 4 % (10-50); Mean Corpuscular HGB Conc 33.6 g/dl (31.0-37.0); Mean Corpuscular Hemoglobin 30.6 pg (25.0-35.0); Mean Corpuscular Volume 91 fL (80-100); Monocytes # (Auto) 1.1 Thou/mm3 (0.0-0.8); Monocytes % (Auto) 6 % (0-12); Neutrophils # (Auto) 17.2 Thou/mm3 (1.8-7.7); Neutrophils % (Auto) 90 % (37-80); Nucleated Red Blood Cell # 0.00 Thou/mm3 (0.00-0.00); Nucleated Red Blood Cell % 0 /100 WBC (0); Platelet Count 175 Thou/mm3 (140-440); RDW Standard Deviation 42.6 fL (35.1-43.9); Red Blood Count 4.22 Miln/mm3 (4.50-5.90); White Blood Count 19.3 Thou/mm3 (3.8-10.6)
--- NOTE | 2025-04-14 20:47 | ESCONSULT_ITS ---
Tele Neuro Consultation Consultation Date 04/14/25 Most Recent Vital Signs Last Vital Signs Temp 97.8 F 04/14/25 20:36 Pulse 67 04/14/25 20:36 Resp 23 H 04/14/25 20:36 BP 130/80 04/14/25 20:36 Pulse Ox 98 04/14/25 20:36 O2 Del Method Nasal Cannula 04/14/25 07:45 O2 Flow Rate 2 04/14/25 20:36 FiO2 3 04/14/25 14:01 Laboratory-Coagulation Panel PT 12.7 Seconds (9.0-12.2) H 04/14/25 04:00 INR 1.2 (0.9-1.3) 04/14/25 04:00 APTT > 139.0 Seconds (22.0-36.0) H* D 04/14/25 12:25 D-Dimer > 3820 ng/mL (<600) H 04/13/25 21:43 Consultation Narrative [facility] Patient Name:???Stevenson Mcfadden Date of :???1955 Identification Number:??? Date of Service:???04/14/2025 20:14:54 Diagnosis: ?G45.9 - Transient cerebral ischemic attack, unspecified Impression: ?Patient is evaluated by neurology for reported left facial droop. On my exam, I did not appreciate any facial asymmetry or facial droop, he did have very limited speech and confusion, which daughter reports is baseline due to his history of Alzheimer's. He had equal strength in his upper and lower extremities and normal sensation. CT head was obtained and demonstrated no evidence of hemorrhage. Etiology of patient's reported facial droop could be TIA. Given lack of hemorrhage on CT head, I would recommend continuing heparin gtt at this time given PE and DVT. Can obtain nonurgent MRI brain to rule out infarct. Recommendations: ? Neuro Checks (Q4) ?Recommend resuming heparin gtt for PE and DVT pending repeat PTT ?Obtain nonurgent MRI brain wo contrast ?Further medical management per primary team Sign Out: ? Discussed with Emergency Department Provider Advanced Imaging:Advanced Imaging Deferred because: Non-disabling symptoms as verified by the patient; no cortical signs so not consistent with LVO Metrics: Last Known Well: Unknown Dispatch Time: 04/14/2025 20:14:54 Initial Response Time: 04/14/2025 20:17:10Symptoms: Left facial droop. Initial patient interaction: 04/14/2025 20:19:06 NIHSS Assessment Completed: 04/14/2025 20:25:13Patient is not a candidate for Thrombolytic. Thrombolytic Medical Decision: 04/14/2025 20:25:14Patient was not deemed candidate for Thrombolytic because of following reasons: Heparin received within 48 hours, resulting in abnormally elevated PTT>[address] . [address] Head: I personally reviewed all the CT images that were available to me and it showed: No evidence of hemorrhage Primary Provider Notified of Diagnostic Impression and Management Plan on: 04/14/2025 20:28:59 Spoke With: Dr. Schmidt Able to Reach 04/14/2025 20:28:59 History of Present Illness:Patient is a 69 year old Male. Inpatient stroke alert was called for symptoms of Left facial droop. Patient is evaluated by neurology for reported left facial droop. Patient is currently admitted to the hospital for management of FADY, sepsis secondary to pneumonia as well as PE and DVT. He is currently on heparin, and daughter reports that this evening she noticed patient had left facial droop. Is unclear the last time patient was seen without facial droop. Daughter denies noticing any other focal neurologic deficits. He has a history of Alzheimer's disease and has significant notable speech deficits at baseline. ? Past Medical History: ?Hypertension ?Dementia/MCI Other PMH:? PE Medications: No Anticoagulant use? Antiplatelet use:?Yes?ASA 81 Reviewed EMR for current medications Allergies:? Reviewed Social History: Smoking: No Family History: There is no family history of premature cerebrovascular disease pertinent to this consultation ROS : 14 Points Review of Systems was performed and was negative except mentioned in HPI. Past Surgical History: There Is No Surgical History Contributory To Today?s Visit ? Examination: BP(130/91),?Pulse(79), 1A: Level of Consciousness - Alert; keenly responsive?+ 0 1B: Ask Month and Age - Could Not Answer Either Question Correctly?+ 2 1C: Blink Eyes & Squeeze Hands - Performs Both Tasks?+ 0 2: Test Horizontal Extraocular Movements - Normal?+ 0 3: Test Visual Pathak - No Visual Loss?+ 0 4: Test Facial Palsy (Use Grimace if Obtunded) - Normal symmetry?+ 0 5A: Test Left Arm Motor Drift - No Drift for 10 Seconds?+ 0 5B: Test Right Arm Motor Drift - No Drift for 10 Seconds?+ 0 6A: Test Left Leg Motor Drift - No Drift for 5 Seconds?+ 0 6B: Test Right Leg Motor Drift - No Drift for 5 Seconds?+ 0 7: Test Limb Ataxia (FNF/Heel-Cole) - No Ataxia?+ 0 8: Test Sensation - Normal; No sensory loss?+ 0 9: Test Language/Aphasia - Mild-Moderate Aphasia: Some Obvious Changes, Without Significant Limitation?+ 1 10: Test Dysarthria - Mild-Moderate Dysarthria: Slurring but can be understood?+ 1 11: Test Extinction/Inattention - No abnormality?+ 0 NIHSS Score:?4 Pre-Morbid Modified Shanon Scale:3 Points = Moderate disability; requiring some help, but able to walk without assistance Spoke with :?Dr. Schmidt This consult was conducted in real time using interactive audio and video technology. Patient was informed of the technology being used for this visit and agreed to proceed. Patient located in hospital and provider located at home/office setting. Patient is being evaluated for possible acute neurologic impairment and high probability of imminent or life-threatening deterioration. I spent total of 35 minutes providing care to this patient, including time for face to face visit via telemedicine, review of medical records, imaging studies and discussion of findings with providers, the patient and/or family. Dr Fili Cheney [facility] For Inpatient follow-up with [facility] physician please call [facility] at . As we are not an outpatient service for any post hospital discharge needs please contact the hospital for assistance. If you have any questions for the [facility] physicians or need to reconsult for clinical or diagnostic changes please contact us via [facility] at . Signature :?Fili Cheney ?
[2025-04-14 20:52] LABS: Alanine Aminotransferase 23 U/L (10-49); Albumin, Serum 3.6 gm/dL (3.4-4.8); Albumin/Globulin Ratio 1.3 (1.2-2.2); Alkaline Phosphatase 120 U/L (46-116); Anion Gap 11 (7-16); Aspartate Amino Transferase 28 U/L (0-34); BUN/Creatinine Ratio 17 Ratio (12-20); Bilirubin,Total 0.5 mg/dL (0.3-1.2); Blood Urea Nitrogen 17 mg/dL (9-23); Calcium 8.4 mg/dL (8.3-10.6); Calcium (Corrected) 8.7 mg/dL (8.5-10.1); Carbon Dioxide 24.1 mMol/L (20.0-31.0); Chloride 108 mMol/L (98-107); Creatinine (Component) 1.0 mg/dL (0.6-1.3); Estimated Creatinine Clearance 66.4 mL/min (>60); Globulin 2.7 gm/dL (2.3-3.5); Glucose 130 mg/dL (74-106); Magnesium 1.8 mg/dL (1.6-2.6); Osmolality,Calculated 288 (275-295); Potassium 3.8 mMol/L (3.4-5.1); Sodium 143 mMol/L (136-145); Total Protein 6.3 gm/dL (5.7-8.2); Troponin I < 0.020 ng/mL (0.0-0.045); eGFR > 60 See Note
[2025-04-14 21:07] LABS: INR 1.2 (0.9-1.3); Partial Thromboplastin Time 74.7 Seconds (22.0-36.0); Prothrombin Time 13.0 Seconds (9.0-12.2)
[2025-04-14] MEDS: MEMANTINE HCL 5 MG TABLET 10 MG PO (22:12)
[2025-04-14] MEDS: NAPH,KPH MBDB 1 PACKET (1.5 GM) PO (22:12)
[2025-04-14] MEDS: BACLOFEN 10 MG TABLET PO (22:12)
[2025-04-14 23:17] LABS: Partial Thromboplastin Time 55.4 Seconds (22.0-36.0)
--- NOTE | 2025-04-14 23:26 | PC.RT ---
spoke to Dr. Ireland in person about sputum induction ordered on 04/14 at 5;20, per do not cancel order hold off on it until am team arrived 04/15.
[2025-04-15] VITALS (9 sets, daily range): BP systolic 108–127; BP diastolic 71–72; PULSE 64–87; RESP 16–95; TEMP 36.2–36.8; O2SAT 94–98; BMI 30.5; BMI 30.7
--- NOTE | 2025-04-15 | XR_ITS ---
Examinations: MRI Brain without intravenous contrast. MRA brain without intravenous contrast. MRA carotids without intravenous contrast 3-D vascular reconstructions Date and time of exam: April 15, 2025, 1556 hrs., Indication: Stroke alert, onset focal neurologic deficit, difficulty with speech and left-sided facial droop beginning today. Technique: Multiple axial and sagittal images of the brain have been obtained MRA brain carotid images without contrast obtained, including 3-D postprocessing, vascular maximum intensity projection images Findings: [employer] is not enlarged. The optic chiasm and infundibular stalk are not remarkable. Prepontine and interpeduncular cisterns are not enlarged. No localized enlargement of the medulla or obdulia. Fourth ventricle and cerebellar tonsils normal in position. Subacute hemorrhage is not seen. Fourth ventricle is midline. Mass in the cerebellopontine angle region is not evident. 7th and 8th nerve complexes exhibits symmetry. Globes are symmetrical with no retro-orbital mass. Increased white matter signal prominent Diffusion-weighted images demonstrate no focus of restricted diffusion. Mass-effect upon the ventricular system is not identified. MRA carotid images degraded by patient motion.. MRA brain images limited technique, no large vessel occlusions. Impression: Negative for acute hemorrhage mass effect or midline shift. No acute fracture. Prominent microvascular white matter change, differential would include chronic multi-infarct dementia pattern
[2025-04-15] MEDS: METOCLOPRAMIDE INJ 5 MG/ML VIAL 2 ML 10 MG IVP (00:17)
[2025-04-15] MEDS: Heparin/D5w 25K 250 ML Ivpb 25,000 UNIT/250 ML BAG 12.043 UNIT IV (01:51)
[2025-04-15] MEDS: GABAPENTIN 300 MG CAPSULE PO (02:40)
--- NOTE | 2025-04-15 04:38 | PC.NURSE ---
[employer] downtime occurred on <03/15/25> from < 0200> to <0440>.
--- NOTE | 2025-04-15 04:41 | PC.NURSE ---
[facility]25 from 0200 to 0440.
[2025-04-15] MEDS: BACLOFEN 10 MG TABLET PO ×3 (05:42→21:00)
[2025-04-15 05:46] LABS: Basophils # (Auto) 0.0 Thou/mm3 (0.0-0.2); Basophils % (Auto) 0 % (0-2.5); Eosinophils # (Auto) 0.0 Thou/mm3 (0.0-0.5); Eosinophils % (Auto) 0 % (0-10); Hematocrit 36.4 % (41.0-53.0); Hemoglobin 12.4 g/dL (13.5-16.0); Immature Granulocytes Auto 0.20 Thou/mm3 (0.00-0.00); Immature Reticulocyte Fraction 15.0 % (2.3-13.4); Lymphocytes # (Auto) 1.0 Thou/mm3 (1.0-4.8); Lymphocytes % (Auto) 5 % (10-50); Mean Corpuscular HGB Conc 34.1 g/dl (31.0-37.0); Mean Corpuscular Hemoglobin 30.8 pg (25.0-35.0); Mean Corpuscular Volume 91 fL (80-100); Monocytes # (Auto) 1.4 Thou/mm3 (0.0-0.8); Monocytes % (Auto) 8 % (0-12); Neutrophils # (Auto) 15.7 Thou/mm3 (1.8-7.7); Neutrophils % (Auto) 86 % (37-80); Nucleated Red Blood Cell # 0.00 Thou/mm3 (0.00-0.00); Nucleated Red Blood Cell % 0 /100 WBC (0); Platelet Count 172 Thou/mm3 (140-440); RDW Standard Deviation 42.9 fL (35.1-43.9); Red Blood Count 4.02 Miln/mm3 (4.50-5.90); Reticulocyte % (Auto) 1.9 % (0.5-1.5); Reticulocyte Absolute Auto 76.0 Biln/L (25.0-75.0); Reticulocyte Hgb Content 35.0 pg (28.0-35.0); White Blood Count 18.2 Thou/mm3 (3.8-10.6)
[2025-04-15 06:17] LABS: Alanine Aminotransferase 26 U/L (10-49); Albumin, Serum 3.3 gm/dL (3.4-4.8); Albumin/Globulin Ratio 1.5 (1.2-2.2); Alkaline Phosphatase 114 U/L (46-116); Anion Gap 11 (7-16); Aspartate Amino Transferase 36 U/L (0-34); BUN/Creatinine Ratio 17 Ratio (12-20); Bilirubin,Total 0.4 mg/dL (0.3-1.2); Blood Urea Nitrogen 15 mg/dL (9-23); Calcium 8.7 mg/dL (8.3-10.6); Calcium (Corrected) 9.3 mg/dL (8.5-10.1); Carbon Dioxide 24.2 mMol/L (20.0-31.0); Chloride 109 mMol/L (98-107); Creatinine (Component) 0.9 mg/dL (0.6-1.3); Estimated Creatinine Clearance 73.2 mL/min (>60); Globulin 2.2 gm/dL (2.3-3.5); Glucose 108 mg/dL (74-106); Magnesium 1.9 mg/dL (1.6-2.6); Osmolality,Calculated 288 (275-295); Phosphorous 2.3 mg/dL (2.4-5.1); Potassium 3.8 mMol/L (3.4-5.1); Sodium 144 mMol/L (136-145); Total Protein 5.5 gm/dL (5.7-8.2); eGFR > 60 See Note
[2025-04-15 06:20] LABS: INR 1.2 (0.9-1.3); Partial Thromboplastin Time 86.9 Seconds (22.0-36.0); Prothrombin Time 13.0 Seconds (9.0-12.2)
[2025-04-15 06:27] LABS: Ferritin 290 ng/mL (10.5-307.3); Iron 146 mcg/dL (65-175); Percent Iron Saturation 70 % (20-55); Total Iron Binding Capacity 206 mcg/dL (250-425); Unsaturated Iron Binding 60 (225-295)
[2025-04-15] MEDS: TAMSULOSIN HCL 0.4 MG CAPSULE PO (08:21)
[2025-04-15] MEDS: cefTRIAXone/D5w 1gm IV premix 1 GM/50 ML BAG IV (08:22)
[2025-04-15] MEDS: NAPH,KPH MBDB 1 PACKET (1.5 GM) PO (08:40)
[2025-04-15] MEDS: AZITHROMYCIN INJ 500 MG in SODIUM CHLORIDE 0.9% 250 ML 250 ML 250 MG IV (08:40)
--- NOTE | 2025-04-15 09:34 | ESPR_ITS ---
<Statement entered by Joe Ross MD - 04/15/25 15:07> Overnight there was some concern for left facial droop as a result, patient had stroke alert initiated with CT head along with CTA head and neck ordered which were negative. Teleneurology saw the patient and recommended nonurgent MRI to rule out any stroke. Patient's family bedside updated regarding patient's status. Patient is apparently been having episodes of hiccups which could proved to be seizures. As a result, we will follow-up with in-house neurology for potential EEG. Patient continues to be on heparin drip for the PEs noted on the left lower lobe; moreover, expecting transition to oral anticoagulant soon. Family is agreeable for the patient to be discharged to SNF once he is clinically stable. I have personally seen and examined the patient. I agree with the resident's assessment and plan as documented below. Joe Ross, DO PGY-2 Internal Medicine - [facility] Documentation for date of: 04/15/25 Subjective Subjective Interval history: Overnight events: Patient had a rapid response called overnight for left facial droop. No focal deficits noted on exam. Heparin drip was held. Stroke protocol initiated, telemetry neuro consulted. CT head and CTA head/neck negative. Heparin was resumed with MRI planned for the morning. Memantine, donepezil, and metoclopramide held. Patient was seen and examined at bedside. AM vitals and labs reviewed. Patient did not appear in any acute distress. Per patient's daughter at bedside, the patient was up all morning and all evening yesterday, and just got some rest this morning. No focal deficits noted. Continue to hold memantine, metoclopramide, donepezil per neurology recommendations. MRI brain with MRA pending. Echocardiogram pending. Resumed home Seroquel 50 mg twice daily to help patient's sleep and for agitation. Continue heparin drip. Appreciate cardiology recommendations of lifelong Eliquis 2.5 twice daily afterwards. Discontinue Crow catheter. Continue ceftriaxone and azithromycin. Review of systems otherwise negative except for what is mentioned above. Exam Vital Signs Temp Pulse Resp BP Pulse Ox O2 Del Method O2 Flow Rate 98.3 F 78 16 127/72 96 Room Air 2 04/15/25 08:00 04/15/25 09:00 04/15/25 09:00 04/15/25 08:00 04/15/25 08:00 04/15/25 08:00 04/14/25 20:36 FiO2 3 04/14/25 14:01 Narrative Exam Physical Exam: General: Alert, no acute distress. Skin: Warm, dry, intact. Head: Normocephalic, atraumatic. Eye: Normal conjunctiva, PERRL. Cardiovascular: Regular rate and rhythm, no murmur, +S1/S2. Respiratory: Lungs are clear to auscultation, respirations unlabored, no crackles, no wheezing. Gastrointestinal: Soft, nontender, non-distended. No guarding or rebound tenderness. Extremities: No edema, no cyanosis, no clubbing. 2+ radial pulse bilaterally, 2+ pedal pulse bilaterally. Neuro: No focal deficits observed. Conversant, moving all extremities. No overt cerebellar signs/incoordination. Psychiatric: Cooperative, appropriate affect. Objective Labs 04/16/25 05:50 04/16/25 05:50 Labs: Laboratory Results - last 24 hr 04/14/25 04/14/25 04/14/25 11:20 12:25 20:19 WBC 19.3 H D RBC 4.22 L Hgb 12.9 L Hct 38.4 L MCV 91 MCH 30.6 MCHC 33.6 RDW Std Deviation 42.6 Plt Count 175 Neut % (Auto) 90 H Lymph % (Auto) 4 L [place] % (Auto) 6 Eos % (Auto) 0 Baso % (Auto) 0 Neut # (Auto) 17.2 H Lymph # (Auto) 0.8 L [place] # (Auto) 1.1 H Eos # (Auto) 0.0 Baso # (Auto) 0.0 Immature Gran # (Auto) 0.17 H Absolute Nucleated RBC 0.00 Immature Gran % 1 H Nucleated RBC % 0 Retic Count (auto) Absolute Retic Immature Retic Fraction Retic Hgb Content CHr PT 13.0 H INR 1.2 APTT > 139.0 H* D 74.7 H D Sodium 143 Potassium 3.8 Chloride 108 H Carbon Dioxide 24.1 Anion Gap 11 BUN 17 Creatinine 1.0 Estim Creat Clear Calc 66.4 eGFR > 60 BUN/Creatinine Ratio 17 Glucose 130 H Calculated Osmolality 288 Lactic Acid 2.3 H Calcium 8.4 Corrected Calcium 8.7 Phosphorus Magnesium 1.8 Iron TIBC Iron Saturation Unsat Iron Binding Ferritin Total Bilirubin 0.5 AST 28 ALT 23 Alkaline Phosphatase 120 H D Troponin I < 0.020 Total Protein 6.3 Albumin 3.6 Globulin 2.7 Albumin/Globulin Ratio 1.3 04/14/25 04/15/25 22:17 04:42 WBC 18.2 H RBC 4.02 L Hgb 12.4 L Hct 36.4 L MCV 91 MCH 30.8 MCHC 34.1 RDW Std Deviation 42.9 Plt Count 172 Neut % (Auto) 86 H Lymph % (Auto) 5 L [place] % (Auto) 8 Eos % (Auto) 0 Baso % (Auto) 0 Neut # (Auto) 15.7 H Lymph # (Auto) 1.0 [place] # (Auto) 1.4 H Eos # (Auto) 0.0 Baso # (Auto) 0.0 Immature Gran # (Auto) 0.20 H Absolute Nucleated RBC 0.00 Immature Gran % 1 H Nucleated RBC % 0 Retic Count (auto) 1.9 H Absolute Retic 76.0 H Immature Retic Fraction 15.0 H Retic Hgb Content CHr 35.0 PT 13.0 H INR 1.2 APTT 55.4 H D 86.9 H D Sodium 144 Potassium 3.8 Chloride 109 H Carbon Dioxide 24.2 Anion Gap 11 BUN 15 Creatinine 0.9 Estim Creat Clear Calc 73.2 eGFR > 60 BUN/Creatinine Ratio 17 Glucose 108 H Calculated Osmolality 288 Lactic Acid Calcium 8.7 Corrected Calcium 9.3 Phosphorus 2.3 L Magnesium 1.9 Iron 146 TIBC 206 L Iron Saturation 70 H Unsat Iron Binding 60 L Ferritin 290 Total Bilirubin 0.4 AST 36 H ALT 26 Alkaline Phosphatase 114 Troponin I Total Protein 5.5 L Albumin 3.3 L Globulin 2.2 L Albumin/Globulin Ratio 1.5 ABG Interpretation ABG results: 04/14/25 04:25 ABG pH 7.35 ABG pCO2 38 ABG pO2 94 ABG HCO3 21 ABG O2 Saturation 98 ABG Base Excess -4 L Quality Measures Quality Measures VTE prophylaxis Advance care planning discussed with:: patient and child Assessment & Plan Assessment Current Active Medications: Generic Name Dose Route Start Last Admin Trade Name Freq PRN Reason Stop Dose Admin Acetaminophen 650 mg 04/14/25 05:15 04/14/25 09:36 Acetaminophen 325 Mg Tablet PO 05/14/25 05:14 650 mg Q6H PRN Administration PAIN OR FEVER > 101 Baclofen 10 mg 04/15/25 06:00 04/15/25 05:42 Baclofen 10 Mg Tablet PO 05/15/25 05:59 10 mg Q8H ARIANA Administration Donepezil HCl 10 mg 04/15/25 09:00 Donepezil Hcl 5 Mg Tablet PO 05/15/25 08:59 On Hold: 04/15/25 09:00 QDAY ARIANA Heparin Sodium/Dextrose 25,000 unit in 250 mls @ 14.451 mls/hr 04/14/25 04:45 04/15/25 07:07 Heparin In D5w Ivpb IV 04/28/25 04:44 13 units/kg/hr .[id number] ARIANA 10.437 mls/hr Protocol Titration 18 UNITS/KG/HR Azithromycin 500 mg/ Sodium 250 mls @ 250 mls/hr 04/15/25 09:00 04/15/25 08:40 Chloride IV 04/22/25 08:59 250 mls/hr QDAY ARIANA Administration Ceftriaxone Sodium/Dextrose 1 gm in 50 mls @ 100 mls/hr 04/15/25 09:00 04/15/25 08:22 Rocephin/D5w 1gm Iv Premix IV 04/22/25 08:59 100 mls/hr QDAY ARIANA Administration Magnesium Sulfate 4 gm in 50 mls @ 12.5 mls/hr 04/15/25 08:00 Magnesium Sulfate Ivpb IV 04/15/25 11:59 X1 ONE Memantine 10 mg 04/14/25 21:00 04/14/25 22:12 Memantine Hcl 5 Mg Tablet PO 05/14/25 20:59 10 mg On Hold: 04/15/25 09:00 BID ARIANA Administration Ondansetron HCl 4 mg 04/14/25 05:15 Ondansetron Inj 2 Mg/Ml Inj 2 Ml IVP 05/14/25 05:14 On Hold: 04/14/25 18:25 Q6H PRN NAUSEA OR VOMITING Protocol Quetiapine Fumarate 50 mg 04/14/25 21:00 Quetiapine Fumarate 25 Mg Tablet PO 05/14/25 20:59 On Hold: 04/14/25 21:00 BID ARIANA Sennosides 1 tab 04/14/25 18:30 04/15/25 08:21 Senna Tablet PO 05/14/25 18:29 1 tab QDAY ARIANA Administration Protocol Tamsulosin HCl 0.4 mg 04/15/25 09:00 04/15/25 08:21 Tamsulosin Hcl 0.4 Mg Capsule PO 05/15/25 08:59 0.4 mg QDAY ARIANA Administration Plan 69-year-old male with past medical history of Alzheimer's dementia, Parkinson's, BPH, hypertension, coccidiomycosis infection, pacemaker for sick sinus syndrome who presented to the ED on 04/13 with episodes of generalized weakness, cough, hiccups found to have DVT of right lower extremity along with PE of the left lower lobe along with mild pneumonia. #Left lower pulmonary embolism #Provoked PE #Right lower extremity DVT As noted in HPI, patient presented with episode of shortness of breath, cough and hiccups; bedbound for months per family Initial chest x-ray did not show any active disease but there was some atelectasis EKG showed sinus rhythm with occasional PVCs Chest CTA showed positive for pulmonary artery emboli in the left lower lobe pulmonary artery branches, pneumonia both bases and cholelithiasis Venous Doppler study showed extensive acute right leg DVT Head CT did not show any active disease Plan: Continue IV heparin, will transition to p.o. anticoagulant Monitor coagulation panel, follow protocol for heparin infusion #Acute CVA rule out Left-sided facial droop and speech difficulty noted in the evening of 04/14. Physical exam shows no acute symptoms, possibly resolved. CT head and CTA head/neck negative. Plan: Neurology consulted, appreciate recommendations Neurochecks every 4 hours, head of bed elevation 30 degrees Atorvastatin 40 mg nightly Echocardiogram ordered, pending MRI with MRA brain ordered, pending Speech therapy referral order, notes that patient forgets to chew food and recommends advance textures for diet #Community-acquired PNA #Lactic Acidosis #Initially septic shock, resolved As noted above and assess CTA there is some concern for pneumonia In the ED patient's BP with MAP <65 and lactic acid present even with fluids so pressors were momentarily started - but discontinued shortly thereafter Patient clinically appears stable without any symptoms of pneumonia, no fever and no WBC Patient does have some lactic acidosis and anion gap moderately elevated at 17 Plan: Will continue treating with IV antibiotics, ceftriaxone and azithromycin (04/14--) Monitor lactic acid #Pacemaker placement 09/13 #Sick sinus syndrome Chronic medical history Plan: Cardiology consulted for recommendations regarding pacemaker functionality #History of Coccidiomycosis infection Chronic medical condition, patient has been treated with antifungals per family Plan: Follow-up with primary care physician upon discharge #Alzheimer's Dementia #Parkinsons' disease? Patient on home baclofen 10 mg p.o. every 8, donepezil 10 mg p.o. daily, memantine 10 mg p.o. twice daily, Seroquel 50 mg p.o. twice daily Plan: Resume Seroquel 50 mg twice daily Held donepezil and memantine per neurology recommendations #Normocytic Anemia Hemoglobin dropped from 15.7-13.0 within 24 hours Low suspicion for acute blood loss anemia as there is no clear signs of blood loss Differentials include: Iron deficiency anemia, anemia of chronic disease, vitamin deficiency but less likely to be hemolytic anemia or myelosuppression Plan: Iron panel ordered, results non-specific #BPH Patient has a history of BPH. Patient takes tamsulosin 0.4 mg at home. Plan: Resume home tamsulosin 0.4 mg daily Crow catheter removed 04/15, will continue to monitor if patient retains urine Health Maintenance: Lines: PIV Diet: Regular Bowel: Senna GI prophylaxis: Not needed DVT prophylaxis: Heparin drip Dispo: Will transition heparin drip to p.o. anticoagulant, likely SNF placement Code: Full Patient seen and assessed with attending Dr. Whitney and senior resident Dr. Ross (PGY-2) Dhiraj Lemons, PGY-1 Attending Provider Attestation/Addendum Queenie, Tala Whitney, DO, attest that I was physically present for the [place] portions of the service and evaluated the patient with the resident and I reviewed and discussed the case with the resident and agree with the resident's findings and plans of care as documented above Patient seen and eval this a.m. He is alert and able to follow some simple commands. Daughter and son are at bedside. Daughter states that the patient had a mild left facial droop, which she has had no occasionally. A stroke alert was called overnight due to concern for new onset of CVA causing facial droop.Heparin drip was paused, but restarted once CT head was done and showed no acute intracranial findings. Neurology following. MRI is otherwise pending. Patient appears to be back at his baseline mental status. Will follow-up with neurology recommendations.
[2025-04-15] MEDS: Magnesium Sulfate 4 GM Ivpb 4 GM/50 ML BAG IV (09:47)
--- NOTE | 2025-04-15 10:46 | PD.RESPRO ---
Documentation for date of: 04/15/25 Subjective Subjective Interval history: Patient examined at bedside today. No acute overnight events. Patient reports improvement in symptoms. Denies any chest pain shortness of breath and headache at this time. No other complaints at this time. Exam Vital Signs Temp Pulse Resp BP Pulse Ox O2 Del Method O2 Flow Rate 98.3 F 78 16 127/72 96 Room Air 2 04/15/25 08:00 04/15/25 09:00 04/15/25 09:00 04/15/25 08:00 04/15/25 08:00 04/15/25 08:00 04/14/25 20:36 FiO2 3 04/14/25 14:01 Narrative Exam GENERAL: NAD, mumbles when spoken to AAOx0 but at baseline mental status per family HEENT: Moist mucosa. Eyes open, symmetrical, & clear CARDIO: Heart RRR, no obvious murmurs PULM: No noted coughing/dyspnea CTA B/L, no R/W/R GI: Abdomen soft, nondistended, no pain on palpation. BSx4 SKIN/MSK/EXT: peripheral edema RLE, LLE minimal edema, no pain on palpation. Pedal pulses present B/L NEURO: Cogwheel rigidity noted with tremors, able to move all 4 extremities Objective Labs 04/15/25 04:42 04/15/25 04:42 Labs: Laboratory Results - last 24 hr 04/14/25 04/14/25 04/14/25 11:20 12:25 20:19 WBC 19.3 H D RBC 4.22 L Hgb 12.9 L Hct 38.4 L MCV 91 MCH 30.6 MCHC 33.6 RDW Std Deviation 42.6 Plt Count 175 Neut % (Auto) 90 H Lymph % (Auto) 4 L [place] % (Auto) 6 Eos % (Auto) 0 Baso % (Auto) 0 Neut # (Auto) 17.2 H Lymph # (Auto) 0.8 L [place] # (Auto) 1.1 H Eos # (Auto) 0.0 Baso # (Auto) 0.0 Immature Gran # (Auto) 0.17 H Absolute Nucleated RBC 0.00 Immature Gran % 1 H Nucleated RBC % 0 Retic Count (auto) Absolute Retic Immature Retic Fraction Retic Hgb Content CHr PT 13.0 H INR 1.2 APTT > 139.0 H* D 74.7 H D Sodium 143 Potassium 3.8 Chloride 108 H Carbon Dioxide 24.1 Anion Gap 11 BUN 17 Creatinine 1.0 Estim Creat Clear Calc 66.4 eGFR > 60 BUN/Creatinine Ratio 17 Glucose 130 H Calculated Osmolality 288 Lactic Acid 2.3 H Calcium 8.4 Corrected Calcium 8.7 Phosphorus Magnesium 1.8 Iron TIBC Iron Saturation Unsat Iron Binding Ferritin Total Bilirubin 0.5 AST 28 ALT 23 Alkaline Phosphatase 120 H D Troponin I < 0.020 Total Protein 6.3 Albumin 3.6 Globulin 2.7 Albumin/Globulin Ratio 1.3 04/14/25 04/15/25 22:17 04:42 WBC 18.2 H RBC 4.02 L Hgb 12.4 L Hct 36.4 L MCV 91 MCH 30.8 MCHC 34.1 RDW Std Deviation 42.9 Plt Count 172 Neut % (Auto) 86 H Lymph % (Auto) 5 L [place] % (Auto) 8 Eos % (Auto) 0 Baso % (Auto) 0 Neut # (Auto) 15.7 H Lymph # (Auto) 1.0 [place] # (Auto) 1.4 H Eos # (Auto) 0.0 Baso # (Auto) 0.0 Immature Gran # (Auto) 0.20 H Absolute Nucleated RBC 0.00 Immature Gran % 1 H Nucleated RBC % 0 Retic Count (auto) 1.9 H Absolute Retic 76.0 H Immature Retic Fraction 15.0 H Retic Hgb Content CHr 35.0 PT 13.0 H INR 1.2 APTT 55.4 H D 86.9 H D Sodium 144 Potassium 3.8 Chloride 109 H Carbon Dioxide 24.2 Anion Gap 11 BUN 15 Creatinine 0.9 Estim Creat Clear Calc 73.2 eGFR > 60 BUN/Creatinine Ratio 17 Glucose 108 H Calculated Osmolality 288 Lactic Acid Calcium 8.7 Corrected Calcium 9.3 Phosphorus 2.3 L Magnesium 1.9 Iron 146 TIBC 206 L Iron Saturation 70 H Unsat Iron Binding 60 L Ferritin 290 Total Bilirubin 0.4 AST 36 H ALT 26 Alkaline Phosphatase 114 Troponin I Total Protein 5.5 L Albumin 3.3 L Globulin 2.2 L Albumin/Globulin Ratio 1.5 ABG Interpretation ABG results: 04/14/25 04:25 ABG pH 7.35 ABG pCO2 38 ABG pO2 94 ABG HCO3 21 ABG O2 Saturation 98 ABG Base Excess -4 L Quality Measures Quality Measures none Advance care planning discussed with:: patient Assessment & Plan Assessment Current Active Medications: Generic Name Dose Route Start Last Admin Trade Name Freq PRN Reason Stop Dose Admin Acetaminophen 650 mg 04/14/25 05:15 04/14/25 09:36 Acetaminophen 325 Mg Tablet PO 05/14/25 05:14 650 mg Q6H PRN Administration PAIN OR FEVER > 101 Baclofen 10 mg 04/15/25 06:00 04/15/25 05:42 Baclofen 10 Mg Tablet PO 05/15/25 05:59 10 mg Q8H ARIANA Administration Donepezil HCl 10 mg 04/15/25 09:00 Donepezil Hcl 5 Mg Tablet PO 05/15/25 08:59 On Hold: 04/15/25 09:00 QDAY ARIANA Heparin Sodium/Dextrose 25,000 unit in 250 mls @ 14.451 mls/hr 04/14/25 04:45 04/15/25 07:07 Heparin In D5w Ivpb IV 04/28/25 04:44 13 units/kg/hr .[id number] ARIANA 10.437 mls/hr Protocol Titration 18 UNITS/KG/HR Azithromycin 500 mg/ Sodium 250 mls @ 250 mls/hr 04/15/25 09:00 04/15/25 08:40 Chloride IV 04/22/25 08:59 250 mls/hr QDAY ARIANA Administration Ceftriaxone Sodium/Dextrose 1 gm in 50 mls @ 100 mls/hr 04/15/25 09:00 04/15/25 08:22 Rocephin/D5w 1gm Iv Premix IV 04/22/25 08:59 100 mls/hr QDAY ARIANA Administration Magnesium Sulfate 4 gm in 50 mls @ 12.5 mls/hr 04/15/25 08:00 04/15/25 09:47 Magnesium Sulfate Ivpb IV 04/15/25 11:59 12.5 mls/hr X1 ONE Administration Memantine 10 mg 04/14/25 21:00 04/14/25 22:12 Memantine Hcl 5 Mg Tablet PO 05/14/25 20:59 10 mg On Hold: 04/15/25 09:00 BID ARIANA Administration Ondansetron HCl 4 mg 04/14/25 05:15 Ondansetron Inj 2 Mg/Ml Inj 2 Ml IVP 05/14/25 05:14 On Hold: 04/14/25 18:25 Q6H PRN NAUSEA OR VOMITING Protocol Quetiapine Fumarate 50 mg 04/14/25 21:00 Quetiapine Fumarate 25 Mg Tablet PO 05/14/25 20:59 BID ARIANA Sennosides 1 tab 04/14/25 18:30 04/15/25 08:21 Senna Tablet PO 05/14/25 18:29 1 tab QDAY ARIANA Administration Protocol Tamsulosin HCl 0.4 mg 04/15/25 09:00 04/15/25 08:21 Tamsulosin Hcl 0.4 Mg Capsule PO 05/15/25 08:59 0.4 mg QDAY ARIANA Administration Plan Assessment 69-year-old male with past medical history of hypertension, sick sinus syndrome status post dual-chamber pacemaker, BPH, history of [place] fever, and advanced Alzheimer's disease who was brought to the ED due to generalized weakness, cough, shortness of breath which started around 3 days ago. Admitted to the ICU for septic shock secondary to pneumonia. Cardiology consulted for Pulmonary embolism and DVT. #Acute CVA rule out NIHSS score of 4 Baseline of Parkinson's Left-sided facial droop and speech difficulty for symptoms during stroke alert Resuming heparin drip after head CT was negative as this is for pulmonary embolus Plan: ? MR stroke protocol ? Speech therapy ? Lipitor 40 mg Hs ? Echo ? Neurochecks every 4 hours ? Head of bed elevation 30 degrees ? DVT prophylaxis ? Bedrest #Pulmonary embolism #Right lower extremity DVT Patient has been basically immobile for the past 6 months secondary to advanced Alzheimer's dementia. Per the family patient was able to ambulate with a walker, however past few months send has had had to physically carry the patient due to severe weakness. As patient has been immobile this is likely provoked PE due to prolonged immobilization Venous ultrasound of right lower extremity shows extensive acute right leg DVT right superficial femoral vein, popliteal veins CTA chest shows pulmonary artery emboli in the left lower lobe branches of the pulmonary arteries ? Continue heparin drip for at least 48 hours. ? Transition to Eliquis 10 mg twice daily X 7 days, later adjust dose to Eliquis 5 mg twice daily. #Sick sinus syndrome s/p dual chamber pacemaker placement Medtronic [place] [address] Forde for symptomatic bradycardia and sick sinus syndrome Model [place] XE, programmed to dual-chamber mode, rate of 60-110 beats per minute, currently rate 78bpm #Community-acquired PNA #Lactic Acidosis #Septic shock-resolved #History of Coccidiomycosis infection #Alzheimer's Dementia #Parkinsons' disease? #Normocytic Anemia Above handled by primary hospitalist team Patient seen and care discussed with my attending physician, Dr. Kiet Goodrich, PGY-2
--- NOTE | 2025-04-15 13:48 | PC.SS ---
SS met with patient, son, and dtrNydia regarding patient's d/c plan. Pt is alert but confused. Pt was admitted for Septic Shock. Dtr, Nydia Mcfadden states she has POA and provided paper work. SS made copies of POA and placed copy in patient's chart. Dtr confirmed patient's demographic and contact information is correct on facesheet. Pt resides with . Pt ambulates using a 4 wheel with seat, rollator walker. Pt requires assistance with all ADLs. Per dtr and son, pt is total care. SS provided verbal d/c options for home or SNF. Daughter's choice is for pt to go to SNF for short term then possibly transition to exterminator care. Daughter's choice is [facility] and [facility]. Dtr and son aware [facility] will have long-term bed and [facility] can accept for short term first then transition to exterminator. Dtr states pt is alert but has dementia. D/C plan: SNF, [facility]st choice is [facility] and [facility] Next of Kin: Nydia Mcfadden dtr, phone# [phone] PCP: Cari Page from [facility] Address: Correct on facesheet
--- NOTE | 2025-04-15 14:03 | PD.RESCONSUL ---
HPI Data of Consult Requesting Physician: Axel Logan MD Admitting Provider: Axel Logan MD Attending Provider: Axel Logan MD Primary Care Provider: Physician No Primary/Family Consult Narrative History of present illness: Patient is 69-year-old male with past medical history of hypertension, BPH, valley fever, Alzheimer disease diagnosed about 5 years ago, history of sick sinus syndrome status post dual-chamber pacemaker placement was presented to ED with chief complaints of generalized weakness, cough, shortness of breath and hiccups that started about 3 days ago. On the secound day of admission overnight, stroke alert was called for evaluation of trouble producing speech and L sided facial droop. These were new symptoms and family had stated that these are also new and pt has been progressively getting worse for the past 6 months as well. Overnight, teleneuro evaluated pt, NIHSS score of 4 and recommended further workup. In ED patient received breathing treatment with DuoNebs, methylprednisone, antibiotics, cultures were drawn. Patient received total of 3 L of normal saline, however MAP was still below 65, at that point patient started on Levophed and was admitted to ICU for septic shock secondary due to pneumonia. cc:: cc: Axel Logan MD Review of Systems Review of Systems Narrative Review of Systems: 12 point ROS reviewed and is otherwise negative unless stated directly in the HPI. Exam Vital Signs Temp Pulse Resp BP Pulse Ox O2 Del Method O2 Flow Rate 98.2 F 68 18 127/71 94 L Room Air 2 04/15/25 12:00 04/15/25 12:00 04/15/25 12:04/15/25 12:04/15/25 12:00 04/15/25 12:04/14/25 20:36 FiO2 3 04/14/25 14:01 Narrative Exam GENERAL: NAD, mumbles when spoken to AAOx0 but at baseline mental status per family HEENT: Moist mucosa. Eyes open, symmetrical, & clear CARDIO: Heart RRR, no obvious murmurs PULM: No noted coughing/dyspnea CTA B/L, no R/W/R GI: Abdomen soft, nondistended, no pain on palpation. BSx4 SKIN/MSK/EXT: peripheral edema RLE, LLE minimal edema, no pain on palpation. Pedal pulses present B/L NEURO: Cogwheel rigidity noted with tremors, able to move all 4 extremities, however some residual L sided droop Results Labs 04/16/25 05:50 04/16/25 05:50 Labs: Short CBC 04/14/25 04/15/25 Range/Units 20:19 04:42 WBC 19.3 H D 18.2 H (3.8-10.6) Thou/mm3 Hgb 12.9 L 12.4 L (13.5-16.0) g/dL Hct 38.4 L 36.4 L (41.0-53.0) % Plt Count 175 172 (140-440) Thou/mm3 BMP 04/14/25 04/15/25 20:19 04:42 Sodium 143 144 Potassium 3.8 3.8 Chloride 108 H 109 H Carbon Dioxide 24.1 24.2 BUN 17 15 Creatinine 1.0 0.9 Glucose 130 H 108 H Calcium 8.4 8.7 Cardiac Enzymes 04/14/25 Range/Units 20:19 Troponin I < 0.020 (0.0-0.045) ng/mL Liver Function 04/14/25 04/15/25 Range/Units 20:19 04:42 Total Bilirubin 0.5 0.4 (0.3-1.2) mg/dL AST 28 36 H (0-34) U/L ALT 23 26 (10-49) U/L Alkaline Phosphatase 120 H D 114 (46-116) U/L Albumin 3.6 3.3 L (3.4-4.8) gm/dL ABG Interpretation ABG results: 04/14/25 04:25 ABG pH 7.35 ABG pCO2 38 ABG pO2 94 ABG HCO3 21 ABG O2 Saturation 98 ABG Base Excess -4 L Quality Measures Quality Measures none Advance care planning discussed with:: patient Medications Home Medications and Allergies Home Medications ?Medication ?Instructions ?Recorded ?Confirmed ?Type Seroquel 50 mg PO BID 04/14/25 04/14/25 History baclofen 10 mg tablet 10 mg PO Q8H 04/14/25 04/14/25 History benadryl 25 mg PO .QHS 04/14/25 04/14/25 History donepezil 10 mg tablet 10 mg PO QDAY 04/14/25 04/14/25 History escitalopram oxalate 20 mg tablet 20 mg PO QDAY 04/14/25 04/14/25 History famotidine 20 mg tablet (Pepcid) 20 mg PO BID 04/14/25 04/14/25 History levofloxacin 500 mg tablet 500 mg PO Q24H 04/14/25 04/14/25 History lisinopril 10 mg tablet 10 mg PO QDAY 04/14/25 04/14/25 History loratadine 10 mg tablet 10 mg PO Q24H 04/14/25 04/14/25 History memantine 10 mg tablet 10 mg PO BID 04/14/25 04/14/25 History prednisone 20 mg tablet 20 mg PO QDAY 04/14/25 04/14/25 History tamsulosin 0.4 mg capsule (Flomax) 0.4 mg PO QDAY 04/14/25 04/14/25 History Allergies Allergy/AdvReac Type Severity Reaction Status Date / Time No Known Allergies Allergy Verified 04/13/25 20:38 Visit Medications Acetaminophen (Acetaminophen 325 Mg Tablet) 650 mg PO Q6H PRN PRN Reason: PAIN OR FEVER > 101 Stop: 05/14/25 05:14 Last Admin: 04/14/25 09:36 Dose: 650 mg Atorvastatin Calcium (Atorvastatin Calcium 20 Mg Tablet) 40 mg PO HS [facility] Stop: 05/15/25 20:59 Baclofen (Baclofen 10 Mg Tablet) 10 mg PO Q8H [facility] Stop: 05/15/25 05:59 Last Admin: 04/15/25 14:00 Dose: 10 mg Donepezil HCl (Donepezil Hcl 5 Mg Tablet) 10 mg PO QDAY [facility] On Hold: 04/15/25 09:00 Stop: 05/15/25 08:59 Heparin Sodium/Dextrose (Heparin In D5w Ivpb) 25,000 unit in 250 mls @ 14.451 mls/hr IV .[id number] [facility]; Protocol Stop: 04/28/25 04:44 Last Titration: 04/15/25 07:07 Dose: 13 units/kg/hr, 10.437 mls/hr Azithromycin 500 mg/ Sodium (Chloride) 250 mls @ 250 mls/hr IV QDAY [facility] Stop: 04/22/25 08:59 Last Admin: 04/15/25 08:40 Dose: 250 mls/hr Ceftriaxone Sodium/Dextrose (Rocephin/D5w 1gm Iv Premix) 1 gm in 50 mls @ 100 mls/hr IV QDAY [facility] Stop: 04/22/25 08:59 Last Admin: 04/15/25 08:22 Dose: 100 mls/hr Memantine (Memantine Hcl 5 Mg Tablet) 10 mg PO BID [facility] On Hold: 04/15/25 09:00 Stop: 05/14/25 20:59 Last Admin: 04/14/25 22:12 Dose: 10 mg Ondansetron HCl (Ondansetron Inj 2 Mg/Ml Inj 2 Ml) 4 mg IVP Q6H PRN; Protocol On Hold: 04/14/25 18:25 PRN Reason: NAUSEA OR VOMITING Stop: 05/14/25 05:14 Quetiapine Fumarate (Quetiapine Fumarate 25 Mg Tablet) 50 mg PO BID [facility] Stop: 05/14/25 20:59 Sennosides (Senna Tablet) 1 tab PO QDAY [facility]; Protocol Stop: 05/14/25 18:29 Last Admin: 04/15/25 08:21 Dose: 1 tab Tamsulosin HCl (Tamsulosin Hcl 0.4 Mg Capsule) 0.4 mg PO QDAY [facility] Stop: 05/15/25 08:59 Last Admin: 04/15/25 08:21 Dose: 0.4 mg Discontinued Medications Albuterol/Ipratropium (Albuterol/Ipratropium (Duoneb) Rt Yael 3 Ml Nebu) 3 ml INH X1 ONE Stop: 04/13/25 21:32 Last Admin: 04/13/25 21:57 Dose: 3 ml Baclofen (Baclofen 10 Mg Tablet) 10 mg PO Q8H [facility] Stop: 05/14/25 18:29 Last Admin: 04/14/25 22:12 Dose: 10 mg Diazepam (Diazepam Inj 5 Mg/Ml Vial 2 Ml) 5 mg IVP X1 ONE Stop: 04/14/25 00:28 Last Admin: 04/14/25 00:47 Dose: 5 mg Gabapentin (Gabapentin 300 Mg Capsule) 300 mg PO X1 ONE Stop: 04/14/25 15:06 Last Admin: 04/14/25 22:57 Dose: Not Given Gabapentin (Gabapentin 300 Mg Capsule) 300 mg PO X1 ONE Stop: 04/15/25 04:38 Last Admin: 04/15/25 02:40 Dose: 300 mg Heparin Sodium (Porcine) (Heparin Sod Inj 5000 Unit/Ml Vial) 6,400 unit 80 unit/kg (6400 unit) IV X1 ONE; Protocol Stop: 04/14/25 04:43 Last Admin: 04/14/25 05:39 Dose: 6,400 unit Sodium Chloride (Ns) 1,000 mls @ 999 mls/hr IV .Q1H1M ONE Stop: 04/13/25 23:32 Last Infusion: 04/13/25 23:23 Dose: Infused Sodium Chloride (Ns) 1,000 mls @ 999 mls/hr IV .Q1H1M ONE Stop: 04/14/25 00:04 Last Infusion: 04/13/25 23:57 Dose: Infused Sodium Chloride (Ns) 1,000 mls @ 999 mls/hr IV .Q1H1M ONE Stop: 04/14/25 00:36 Last Infusion: 04/14/25 00:50 Dose: Infused Norepinephrine/Dextrose (Levophed In D5w 8mg/250ml) 8 mg in 250 mls @ 7.527 mls/hr IV .Q24H PRN; Protocol PRN Reason: PER PROTOCOL Stop: 05/14/25 00:17 Last Titration: 04/14/25 09:00 Dose: 0 mcg/kg/min, 0 mls/hr Cefepime HCl 2 gm/ Sodium (Chloride) 50 mls @ 100 mls/hr IV X1 ONE Stop: 04/14/25 05:10 Last Infusion: 04/14/25 06:01 Dose: Infused Vancomycin HCl 2,000 mg/ (Sodium Chloride) 500 mls @ 150 mls/hr IV X1 ONE Stop: 04/14/25 08:00 Last Admin: 04/14/25 07:59 Dose: 150 mls/hr Ceftriaxone Sodium/Dextrose (Rocephin/D5w 1gm Iv Premix) 1 gm in 50 mls @ 100 mls/hr IV QDAY [facility] Stop: 04/21/25 05:20 Last Admin: 04/14/25 23:02 Dose: Not Given Azithromycin 500 mg/ Sodium (Chloride) 250 mls @ 250 mls/hr IV X1 ONE Stop: 04/14/25 07:14 Last Infusion: 04/14/25 08:01 Dose: Infused Ceftriaxone Sodium 1 gm/ (Sodium Chloride) 50 mls @ 100 mls/hr IV X1 ONE Stop: 04/14/25 06:44 Last Infusion: 04/14/25 07:23 Dose: Infused Magnesium Sulfate (Magnesium Sulfate Ivpb) 4 gm in 50 mls @ 12.5 mls/hr IV X1 ONE Stop: 04/15/25 11:59 Last Admin: 04/15/25 09:47 Dose: 12.5 mls/hr Methylprednisolone Sodium Succinate (Methylprednisolone Sod Succ 62.5 Mg/Ml 2ml Vial) 125 mg IVP X1 ONE Stop: 04/13/25 21:32 Last Admin: 04/13/25 22:04 Dose: 125 mg Metoclopramide HCl (Metoclopramide Inj 5 Mg/Ml Vial 2 Ml) 5 mg IVP X1 ONE; Protocol Stop: 04/14/25 15:52 Last Admin: 04/14/25 15:56 Dose: 5 mg Metoclopramide HCl (Metoclopramide Inj 5 Mg/Ml Vial 2 Ml) 10 mg IVP X1 ONE; Protocol Stop: 04/15/25 00:09 Last Admin: 04/15/25 00:17 Dose: 10 mg Pantoprazole Sodium (Pantoprazole Inj 40 Mg Vial) 40 mg IVP QDAY [facility] Stop: 05/14/25 08:59 Last Admin: 04/14/25 09:35 Dose: 40 mg Potassium Phos/Sodium Phos (Naph,[facility] 1 Packet (1.5 Gm)) 1 packet PO X1 ONE Stop: 04/14/25 18:12 Last Admin: 04/14/25 22:12 Dose: 1 packet Potassium Phos/Sodium Phos (Naph,[facility] 1 Packet (1.5 Gm)) 1 packet PO X1 ONE Stop: 04/15/25 08:01 Last Admin: 04/15/25 08:40 Dose: 1 packet Sodium Chloride (Sodium Chloride Rt 10% 15 Ml Nebu) 5 ml INH X1 ONE Stop: 04/14/25 05:16 Last Admin: 04/14/25 22:57 Dose: Not Given Sodium Chloride (Sodium Chloride Rt 10% 15 Ml Nebu) 5 ml INH X1 ONE Stop: 04/14/25 06:53 Last Admin: 04/14/25 22:57 Dose: Not Given Assessment & Plan Plan Assessment 69-year-old male with past medical history of hypertension, sick sinus syndrome status post dual-chamber pacemaker, BPH, history of valley fever, and advanced Alzheimer's disease who was brought to the ED due to generalized weakness, cough, shortness of breath which started around 3 days ago. Admitted to the ICU for septic shock secondary to pneumonia. Cardiology consulted for Pulmonary embolism and DVT. #Acute CVA rule out NIHSS score of 4 Baseline of Parkinson's Left-sided facial droop and speech difficulty for symptoms during stroke alert Resuming heparin drip after head CT was negative as this is for pulmonary embolus Plan: ? MR stroke protocol ? Speech therapy ? Lipitor 40 mg Hs ? Echo ? Neurochecks every 4 hours ? Head of bed elevation 30 degrees ? DVT prophylaxis ? Bedrest #Hx of Alzheimer's disease Plan: ? Holding home medicines in setting of stroke rule out #Pulmonary embolism #Right lower extremity DVT #Sick sinus syndrome s/p dual chamber pacemaker placement #Community-acquired PNA #Lactic Acidosis #Septic shock-resolved #History of Coccidiomycosis infection #Alzheimer's Dementia #Parkinsons' disease? #Normocytic Anemia Above handled by primary hospitalist team Patient seen and care discussed with my attending physician, Dr. Kiet Goodrich, PGY-2 Attending Provider Attestation/Addendum IMP: Stroke ruled out Dementia with progression (clinically confirmed) Pulmonary embolism on anticoagulant therapy Persistent hiccough PLAN AND recs: Continue Donepezil and Memantine Waiting for NH placement
[2025-04-15 14:48] LABS: Partial Thromboplastin Time 105.8 Seconds (22.0-36.0)
[2025-04-15] MEDS: DIAZEPAM INJ 5 MG/ML VIAL 2 ML 1 MG IVP (15:49)
--- NOTE | 2025-04-15 16:01 | PC.SS ---
Walkers The diagnosis creates mobility limitation that significantly impairs ability to participate in the patients activities of daily living either in their entirety, or in a reasonable time frame. Also the patient is able to safely use the walker and the patient?s mobility is sufficiently resolved with the use of the walker and cane has been ruled out.
--- NOTE | 2025-04-15 16:08 | PC.SS ---
SS has sent inquiry using [employer].
[2025-04-15] MEDS: ATORVASTATIN CALCIUM 20 MG TABLET 40 MG PO (20:58)
[2025-04-15 23:08] LABS: Partial Thromboplastin Time 45.0 Seconds (22.0-36.0)
[2025-04-15] MEDS: HEPARIN SOD INJ 5000 UNIT/ML VIAL 3320 UNIT IVP (23:45)
[2025-04-16] VITALS (8 sets, daily range): BP systolic 134–164; BP diastolic 76–94; PULSE 60–73; RESP 16–97; TEMP 36–36.3; O2SAT 94–99; BMI 30.7; BMI 12.0
[2025-04-16] MEDS: BACLOFEN 10 MG TABLET PO (05:03)
[2025-04-16] MEDS: Heparin/D5w 25K 250 ML Ivpb 25,000 UNIT/250 ML BAG 9.634 UNIT IV (05:08)
[2025-04-16 06:09] LABS: Basophils # (Auto) 0.0 Thou/mm3 (0.0-0.2); Basophils % (Auto) 1 % (0-2.5); Eosinophils # (Auto) 0.0 Thou/mm3 (0.0-0.5); Eosinophils % (Auto) 1 % (0-10); Hematocrit 35.9 % (41.0-53.0); Hemoglobin 12.5 g/dL (13.5-16.0); Immature Granulocytes Auto 0.26 Thou/mm3 (0.00-0.00); Lymphocytes # (Auto) 1.5 Thou/mm3 (1.0-4.8); Lymphocytes % (Auto) 24 % (10-50); Mean Corpuscular HGB Conc 34.8 g/dl (31.0-37.0); Mean Corpuscular Hemoglobin 31.0 pg (25.0-35.0); Mean Corpuscular Volume 89 fL (80-100); Monocytes # (Auto) 0.8 Thou/mm3 (0.0-0.8); Monocytes % (Auto) 12 % (0-12); Neutrophils # (Auto) 3.7 Thou/mm3 (1.8-7.7); Neutrophils % (Auto) 59 % (37-80); Nucleated Red Blood Cell # 0.00 Thou/mm3 (0.00-0.00); Nucleated Red Blood Cell % 0 /100 WBC (0); Platelet Count 188 Thou/mm3 (140-440); RDW Standard Deviation 42.1 fL (35.1-43.9); Red Blood Count 4.03 Miln/mm3 (4.50-5.90); White Blood Count 6.4 Thou/mm3 (3.8-10.6)
[2025-04-16 06:46] LABS: Alanine Aminotransferase 31 U/L (10-49); Albumin, Serum 3.2 gm/dL (3.4-4.8); Albumin/Globulin Ratio 1.5 (1.2-2.2); Alkaline Phosphatase 104 U/L (46-116); Anion Gap 11 (7-16); Aspartate Amino Transferase 30 U/L (0-34); BUN/Creatinine Ratio 10 Ratio (12-20); Bilirubin,Total 0.4 mg/dL (0.3-1.2); Blood Urea Nitrogen 8 mg/dL (9-23); Calcium 8.1 mg/dL (8.3-10.6); Calcium (Corrected) 8.7 mg/dL (8.5-10.1); Carbon Dioxide 28.3 mMol/L (20.0-31.0); Chloride 105 mMol/L (98-107); Creatinine (Component) 0.8 mg/dL (0.6-1.3); Estimated Creatinine Clearance 82.7 mL/min (>60); Globulin 2.1 gm/dL (2.3-3.5); Glucose 92 mg/dL (74-106); Magnesium 1.9 mg/dL (1.6-2.6); Osmolality,Calculated 285 (275-295); Phosphorous 2.2 mg/dL (2.4-5.1); Potassium 3.3 mMol/L (3.4-5.1); Sodium 144 mMol/L (136-145); Total Protein 5.3 gm/dL (5.7-8.2); eGFR > 60 See Note
[2025-04-16 07:16] LABS: Partial Thromboplastin Time 101.3 Seconds (22.0-36.0)
[2025-04-16] MEDS: cefTRIAXone/D5w 1gm IV premix 1 GM/50 ML BAG IV (08:42)
[2025-04-16] MEDS: NAPH,KPH MBDB 1 PACKET (1.5 GM) PO (08:42)
[2025-04-16] MEDS: POTASSIUM CHLORIDE 10% 20 MEQ/15 ML UDC 40 MEQ PO (08:42)
[2025-04-16] MEDS: MEMANTINE HCL 5 MG TABLET 10 MG PO ×2 (08:43→21:32)
[2025-04-16] MEDS: APIXABAN 2.5 MG TABLET 5 MG PO ×2 (08:43→10:39)
[2025-04-16] MEDS: ESCITALOPRAM OXALATE 10 MG TABLET 20 MG PO (08:43)
[2025-04-16] MEDS: DONEPEZIL HCL 5 MG TABLET 10 MG PO (08:44)
[2025-04-16] MEDS: TAMSULOSIN HCL 0.4 MG CAPSULE PO (08:44)
--- NOTE | 2025-04-16 09:37 | ESPR_ITS ---
<Statement entered by Erik Keith MD - 04/18/25 15:53> No acute overnight events. Patient is sleeping when examining at the bedside. Family endorsed that patient is still having hiccups and sleep problems. Labs did not show any significant abnormality except for mild anemia. Heparin drip was stopped and patient was started on Eliquis 10 mg twice daily for 7 days followed by 5 mg twice daily. Will continue ceftriaxone for 2 more days. Patient's Seroquel is adjusted to 100 Mg at bedtime. Patient is noted to be taking steroid, prednisone at home and per family, patient took only 1 dose and it was given for pneumonia. Anticipate discharge within next 24 hours to nursing facility I have personally seen and examined the patient, agree with residents assessment and plan Patient plan of care was discussed with the attending physician, Dr. Michael Keith, PGY2 Documentation for date of: 04/16/25 Subjective Subjective Interval history: Overnight events: No acute events overnight. Patient was seen and examined at bedside. AM vitals and labs reviewed. Per patient's family, patient appears to be doing better today. Patient did react and smiled briefly before returning to sleep. According to the patient's family, the patient was able to sleep better last night compared to the night before. Discussed with patient's family about home prednisone, patient's family is unsure why the patient takes that. MRI brain negative for acute stroke. Converted patient from heparin drip to Eliquis 10 mg twice daily for one week and then 5 mg indefinitely. Patient received last dose of azithromycin today, will continue ceftriaxone for additional 2 days until 04/18. Resumed donepezil and memantine. Per neurology, decrease Seroquel to 50 mg nightly, and advised patient to stop home SSRI upon discharge. Expected discharge within next 24 hours. Review of systems otherwise negative except for what is mentioned above. Exam Vital Signs Temp Pulse Resp BP Pulse Ox O2 Del Method O2 Flow Rate 97.0 F 70 16 164/94 H 99 Room Air 2 04/16/25 08:00 04/16/25 08:00 04/16/25 08:00 04/16/25 08:00 04/16/25 08:00 04/16/25 08:00 04/14/25 20:36 FiO2 3 04/14/25 14:01 Narrative Exam Physical Exam: General: Sleepy, no acute distress. Skin: Warm, dry, intact. Head: Normocephalic, atraumatic. Eye: Normal conjunctiva, PERRL. Cardiovascular: Regular rate and rhythm, no murmur, +S1/S2. Respiratory: Lungs are clear to auscultation, respirations unlabored, no crackles, no wheezing. Gastrointestinal: Soft, nontender, non-distended. No guarding or rebound tenderness. Extremities: No edema, no cyanosis, no clubbing. 2+ radial pulse bilaterally, 2+ pedal pulse bilaterally. Neuro: No focal deficits observed. Moving all extremities. No overt cerebellar signs/incoordination. Objective Labs 04/19/25 04:08 04/19/25 04:08 Labs: Laboratory Results - last 24 hr 04/15/25 04/15/25 04/16/25 13:47 22:12 05:50 WBC 6.4 D RBC 4.03 L Hgb 12.5 L Hct 35.9 L MCV 89 MCH 31.0 MCHC 34.8 RDW Std Deviation 42.1 Plt Count 188 Neut % (Auto) 59 Lymph % (Auto) 24 [place] % (Auto) 12 Eos % (Auto) 1 Baso % (Auto) 1 Neut # (Auto) 3.7 Lymph # (Auto) 1.5 [place] # (Auto) 0.8 Eos # (Auto) 0.0 Baso # (Auto) 0.0 Immature Gran # (Auto) 0.26 H Absolute Nucleated RBC 0.00 Immature Gran % 4 H Nucleated RBC % 0 APTT 105.8 H* D 45.0 H D 101.3 H* D Sodium 144 Potassium 3.3 L D Chloride 105 Carbon Dioxide 28.3 Anion Gap 11 BUN 8 L Creatinine 0.8 Estim Creat Clear Calc 82.7 eGFR > 60 BUN/Creatinine Ratio 10 L Glucose 92 Calculated Osmolality 285 Calcium 8.1 L Corrected Calcium 8.7 Phosphorus 2.2 L Magnesium 1.9 Total Bilirubin 0.4 AST 30 ALT 31 Alkaline Phosphatase 104 Total Protein 5.3 L Albumin 3.2 L Globulin 2.1 L Albumin/Globulin Ratio 1.5 ABG Interpretation ABG results: 04/14/25 04:25 ABG pH 7.35 ABG pCO2 38 ABG pO2 94 ABG HCO3 21 ABG O2 Saturation 98 ABG Base Excess -4 L Quality Measures Quality Measures VTE prophylaxis Advance care planning discussed with:: patient, spouse and child Assessment & Plan Assessment Current Active Medications: Generic Name Dose Route Start Last Admin Trade Name Freq PRN Reason Stop Dose Admin Acetaminophen 650 mg 04/14/25 05:15 04/14/25 09:36 Acetaminophen 325 Mg Tablet PO 05/14/25 05:14 650 mg Q6H PRN Administration PAIN OR FEVER > 101 Apixaban 5 mg 04/16/25 08:15 04/16/25 08:43 Apixaban 2.5 Mg Tablet PO 05/07/25 08:14 5 mg BID ARIANA Administration Atorvastatin Calcium 40 mg 04/15/25 21:00 04/15/25 20:58 Atorvastatin Calcium 20 Mg Tablet PO 05/15/25 20:59 40 mg HS [facility] Administration Baclofen 10 mg 04/15/25 06:00 04/16/25 05:03 Baclofen 10 Mg Tablet PO 05/15/25 05:59 10 mg Q8H [facility] Administration Donepezil HCl 10 mg 04/15/25 09:00 04/16/25 08:44 Donepezil Hcl 5 Mg Tablet PO 05/15/25 08:59 10 mg QDAY [facility] Administration Escitalopram Oxalate 20 mg 04/16/25 09:00 04/16/25 08:43 Escitalopram Oxalate 10 Mg Tablet PO 05/16/25 08:59 20 mg QDAY [facility] Administration Heparin Sodium/Dextrose 25,000 unit in 250 mls @ 14.451 mls/hr 04/14/25 04:45 04/16/25 07:18 Heparin In D5w Ivpb IV 04/28/25 04:44 9 units/kg/hr On Hold: 04/16/25 09:30 .[id number] [facility] 7.226 mls/hr Protocol Titration 18 UNITS/KG/HR Azithromycin 500 mg/ Sodium 250 mls @ 250 mls/hr 04/15/25 09:00 04/15/25 08:40 Chloride IV 04/22/25 08:59 250 mls/hr QDAY [facility] Administration Ceftriaxone Sodium/Dextrose 1 gm in 50 mls @ 100 mls/hr 04/15/25 09:00 04/16/25 08:42 Rocephin/D5w 1gm Iv Premix IV 04/22/25 08:59 100 mls/hr QDAY [facility] Administration Memantine 10 mg 04/14/25 21:00 04/16/25 08:43 Memantine Hcl 5 Mg Tablet PO 05/14/25 20:59 10 mg BID [facility] Administration Ondansetron HCl 4 mg 04/14/25 05:15 Ondansetron Inj 2 Mg/Ml Inj 2 Ml IVP 05/14/25 05:14 On Hold: 04/14/25 18:25 Q6H PRN NAUSEA OR VOMITING Protocol Quetiapine Fumarate 50 mg 04/14/25 21:00 04/16/25 08:43 Quetiapine Fumarate 25 Mg Tablet PO 05/14/25 20:59 50 mg BID [facility] Administration Sennosides 1 tab 04/14/25 18:30 04/16/25 08:44 Senna Tablet PO 05/14/25 18:29 1 tab QDAY [facility] Administration Protocol Tamsulosin HCl 0.4 mg 04/15/25 09:00 04/16/25 08:44 Tamsulosin Hcl 0.4 Mg Capsule PO 05/15/25 08:59 0.4 mg QDAY [facility] Administration Plan 69-year-old male with past medical history of Alzheimer's dementia, Parkinson's, BPH, hypertension, coccidiomycosis infection, pacemaker for sick sinus syndrome who presented to the ED on 04/13 with episodes of generalized weakness, cough, hiccups found to have DVT of right lower extremity along with PE of the left lower lobe along with mild pneumonia. #Left lower pulmonary embolism #Provoked PE #Right lower extremity DVT As noted in HPI, patient presented with episode of shortness of breath, cough and hiccups; bedbound for months per family Initial chest x-ray did not show any active disease but there was some atelectasis EKG showed sinus rhythm with occasional PVCs Chest CTA showed positive for pulmonary artery emboli in the left lower lobe pulmonary artery branches, pneumonia both bases and cholelithiasis Venous Doppler study showed extensive acute right leg DVT Head CT did not show any active disease Plan: Eliquis 10 mg twice daily for a total of 7 days, then 5 mg twice daily indefinitely #Acute CVA rule out Left-sided facial droop and speech difficulty noted in the evening of 04/14. Physical exam shows no acute symptoms, possibly resolved. CT head and CTA head/neck negative. Plan: Neurology consulted, appreciate recommendations Neurochecks every 4 hours, head of bed elevation 30 degrees Atorvastatin 40 mg nightly Echocardiogram ordered, resulted as normal left ventricular size and function with EF 60-65% MRI with MRA brain ordered, did not show any signs of acute CVA Speech therapy referral order, notes that patient forgets to chew food and recommends advance textures for diet #Community-acquired PNA #Lactic Acidosis #Initially septic shock, resolved As noted above and assess CTA there is some concern for pneumonia In the ED patient's BP with MAP <65 and lactic acid present even with fluids so pressors were momentarily started - but discontinued shortly thereafter Patient clinically appears stable without any symptoms of pneumonia, no fever and no WBC Patient does have some lactic acidosis and anion gap moderately elevated at 17 Plan: Ceftriaxone 1 gm daily (04/14-- ) Azithromycin 500 mg daily(04/14-04/16) #Sick sinus syndrome s/p dual chamber pacemaker placement Chronic medical history. Per cardiology, it is a [employer] pac[place] [address] Forde for symptomatic bradycardia and sick sinus syndrome. Plan: Cardiology consulted for recommendations regarding pacemaker functionality #History of Coccidiomycosis infection Chronic medical condition, patient has been treated with antifungals per family Plan: Follow-up with primary care physician upon discharge #Alzheimer's Dementia #Parkinsons' disease? Patient on home baclofen 10 mg p.o. every 8, donepezil 10 mg p.o. daily, memantine 10 mg p.o. twice daily, Seroquel 50 mg p.o. twice daily Plan: Seroquel 50 mg nightly Donepezil 10 mg daily Memantine 10 mg twice daily Baclofen 10 mg every 8 hours as needed Per neurology, advised patient to stop home escitalopram 20 mg daily on discharge #Normocytic Anemia Hemoglobin dropped from 15.7-13.0 within 24 hours Low suspicion for acute blood loss anemia as there is no clear signs of blood loss Differentials include: Iron deficiency anemia, anemia of chronic disease, vitamin deficiency but less likely to be hemolytic anemia or myelosuppression Plan: Iron panel ordered, results non-specific #BPH Patient has a history of BPH. Patient takes tamsulosin 0.4 mg at home. Plan: Resume home tamsulosin 0.4 mg daily Crow catheter removed 04/15, will continue to monitor if patient retains urine Health Maintenance: Lines: PIV Diet: Regular Bowel: Senna GI prophylaxis: Not needed DVT prophylaxis: Eliquis Dispo: Likely SNF placement within next 24 hours Code: Full Patient seen and assessed with attending Dr. Rodriguez and senior resident Dr. Keith (PGY-2) Dhiraj Lemons, PGY-1 Attending Provider Attestation/Addendum Face to face evaluation was performed by me. I have personally seen and examined the patient. I discussed the assessment and plan with the entire medicine team. I reviewed available medical records, imaging studies, laboratory results. I agree with the above subjective data, objective findings, assessment and plan except as corrected by me or noted below Shock, suspected to be septic, POA Acute DVT PE suggestive patient needs Possible dementia - On heparin gtt, switch to NOAC apixaban starter pack More than > 30 minutes spent on the encounter
[2025-04-16] MEDS: AZITHROMYCIN INJ 500 MG in SODIUM CHLORIDE 0.9% 250 ML 250 ML 250 MG IV (09:41)
--- NOTE | 2025-04-16 10:30 | ESPR_ITS ---
<Statement entered by Julissa Forde MD - 04/17/25 16:40> I personally examined evaluated the patient who is known to me has a long signs of hypertension pacemaker implantation Dementia fairly significant dementia in fact advanced recently getting worse patient is not very active came to the hospital with extensive DVT of right lower extremity and pulmonary embolism left lower lobes patient did not have any extensive PE patient did have significant hypoxia recently completely improved with IV heparin now on Eliquis started tolerating well. No bleeding issues so far. Evaluated patient with resident physician Dr. Serrano PGY2 agree with the treatment plan recommendation as documented will continue Eliquis 5 mg twice daily after 10 mg twice daily for 7 days monitor the patient as an outpatient. Documentation for date of: 04/16/25 Subjective Subjective Interval history: Patient seen and evaluated the bedside. Vitals and labs reviewed. No active complaints at this time is more interactive with the family and me at the bedside. Mild swelling and pain noted on the right lower extremity compared to the left. Heparin drip has been discontinued and transitioned to Eliquis 10 mg twice daily for 7 days. Exam Vital Signs Temp Pulse Resp BP Pulse Ox O2 Del Method O2 Flow Rate 97.0 F 70 16 164/94 H 99 Room Air 2 04/16/25 08:00 04/16/25 08:00 04/16/25 08:00 04/16/25 08:00 04/16/25 08:00 04/16/25 08:00 04/14/25 20:36 FiO2 3 04/14/25 14:01 Narrative Exam GENERAL: NAD, mumbles when spoken to AAOx0 but at baseline mental status per family HEENT: Moist mucosa. Eyes open, symmetrical, & clear CARDIO: Heart RRR, no obvious murmurs PULM: No noted coughing/dyspnea CTA B/L, no R/W/R GI: Abdomen soft, nondistended, no pain on palpation. BSx4 SKIN/MSK/EXT: peripheral edema RLE, LLE minimal edema, no pain on palpation. Pedal pulses present B/L NEURO: Cogwheel rigidity noted with tremors, able to move all 4 extremities Objective Labs 04/17/25 04:24 04/17/25 04:24 Labs: Laboratory Results - last 24 hr 04/15/25 04/15/25 04/16/25 13:47 22:12 05:50 WBC 6.4 D RBC 4.03 L Hgb 12.5 L Hct 35.9 L MCV 89 MCH 31.0 MCHC 34.8 RDW Std Deviation 42.1 Plt Count 188 Neut % (Auto) 59 Lymph % (Auto) 24 [place] % (Auto) 12 Eos % (Auto) 1 Baso % (Auto) 1 Neut # (Auto) 3.7 Lymph # (Auto) 1.5 [place] # (Auto) 0.8 Eos # (Auto) 0.0 Baso # (Auto) 0.0 Immature Gran # (Auto) 0.26 H Absolute Nucleated RBC 0.00 Immature Gran % 4 H Nucleated RBC % 0 APTT 105.8 H* D 45.0 H D 101.3 H* D Sodium 144 Potassium 3.3 L D Chloride 105 Carbon Dioxide 28.3 Anion Gap 11 BUN 8 L Creatinine 0.8 Estim Creat Clear Calc 82.7 eGFR > 60 BUN/Creatinine Ratio 10 L Glucose 92 Calculated Osmolality 285 Calcium 8.1 L Corrected Calcium 8.7 Phosphorus 2.2 L Magnesium 1.9 Total Bilirubin 0.4 AST 30 ALT 31 Alkaline Phosphatase 104 Total Protein 5.3 L Albumin 3.2 L Globulin 2.1 L Albumin/Globulin Ratio 1.5 ABG Interpretation ABG results: 04/14/25 04:25 ABG pH 7.35 ABG pCO2 38 ABG pO2 94 ABG HCO3 21 ABG O2 Saturation 98 ABG Base Excess -4 L Quality Measures Quality Measures VTE prophylaxis Advance care planning discussed with:: patient Assessment & Plan Assessment Current Active Medications: Generic Name Dose Route Start Last Admin Trade Name Freq PRN Reason Stop Dose Admin Acetaminophen 650 mg 04/14/25 05:15 04/14/25 09:36 Acetaminophen 325 Mg Tablet PO 05/14/25 05:14 650 mg Q6H PRN Administration PAIN OR FEVER > 101 Apixaban 10 mg 04/16/25 21:00 Apixaban 2.5 Mg Tablet PO 04/22/25 21:01 BID ARIANA Atorvastatin Calcium 40 mg 04/15/25 21:00 04/15/25 20:58 Atorvastatin Calcium 20 Mg Tablet PO 05/15/25 20:59 40 mg HS ARIANA Administration Baclofen 10 mg 04/15/25 06:00 04/16/25 05:03 Baclofen 10 Mg Tablet PO 05/15/25 05:59 10 mg Q8H ARIANA Administration Donepezil HCl 10 mg 04/15/25 09:00 04/16/25 08:44 Donepezil Hcl 5 Mg Tablet PO 05/15/25 08:59 10 mg QDAY ARIANA Administration Escitalopram Oxalate 20 mg 04/16/25 09:00 04/16/25 08:43 Escitalopram Oxalate 10 Mg Tablet PO 05/16/25 08:59 20 mg QDAY ARIANA Administration Azithromycin 500 mg/ Sodium 250 mls @ 250 mls/hr 04/15/25 09:00 04/16/25 09:41 Chloride IV 04/22/25 08:59 250 mls/hr QDAY ARIANA Administration Ceftriaxone Sodium/Dextrose 1 gm in 50 mls @ 100 mls/hr 04/15/25 09:00 04/16/25 08:42 Rocephin/D5w 1gm Iv Premix IV 04/22/25 08:59 100 mls/hr QDAY ARIANA Administration Memantine 10 mg 04/14/25 21:00 04/16/25 08:43 Memantine Hcl 5 Mg Tablet PO 05/14/25 20:59 10 mg BID ARIANA Administration Ondansetron HCl 4 mg 04/14/25 05:15 Ondansetron Inj 2 Mg/Ml Inj 2 Ml IVP 05/14/25 05:14 On Hold: 04/14/25 18:25 Q6H PRN NAUSEA OR VOMITING Protocol Quetiapine Fumarate 50 mg 04/14/25 21:00 04/16/25 08:43 Quetiapine Fumarate 25 Mg Tablet PO 05/14/25 20:59 50 mg BID ARIANA Administration Sennosides 1 tab 04/14/25 18:30 04/16/25 08:44 Senna Tablet PO 05/14/25 18:29 1 tab QDAY ARIANA Administration Protocol Tamsulosin HCl 0.4 mg 04/15/25 09:00 04/16/25 08:44 Tamsulosin Hcl 0.4 Mg Capsule PO 05/15/25 08:59 0.4 mg QDAY ARIANA Administration Plan 69-year-old male with past medical history of hypertension, sick sinus syndrome status post dual-chamber pacemaker, BPH, history of valley fever, and advanced Alzheimer's disease who was brought to the ED due to generalized weakness, cough, shortness of breath which started around 3 days ago. Admitted to the ICU for septic shock secondary to pneumonia. Cardiology consulted for Pulmonary embolism and DVT. #Pulmonary embolism #Right lower extremity DVT Patient has been basically immobile for the past 6 months secondary to advanced Alzheimer's dementia. Per the family patient was able to ambulate with a walker, however past few months send has had had to physically carry the patient due to severe weakness. As patient has been immobile this is likely provoked PE due to prolonged immobilization Venous ultrasound of right lower extremity shows extensive acute right leg DVT right superficial femoral vein, popliteal veins CTA chest shows pulmonary artery emboli in the left lower lobe branches of the pulmonary arteries ? Continue heparin drip for at least 48 hours. ? Transition to Eliquis 10 mg twice daily X 7 days, later adjust dose to Eliquis 5 mg twice daily. #Sick sinus syndrome s/p dual chamber pacemaker placement Medtronic [place] [address] Forde for symptomatic bradycardia and sick sinus syndrome Model Elyssa XE, programmed to dual-chamber mode, rate of 60-110 beats per minute, currently rate 78bpm #Community-acquired PNA #Lactic Acidosis #Septic shock-resolved #History of Coccidiomycosis infection #Alzheimer's Dementia #Parkinsons' disease? #Normocytic Anemia ? as per primary team. Case discussed with my attending Dr. Maurisio Serrano MD PGY-2 Disclaimer: Despite multiple revisions, due to the dictation software being used, the document bellow may not be free of grammatical errors including phonetic/typographic errors. However, this does not deter from our commitment to providing health care in the patient's best interest in mind.
--- NOTE | 2025-04-16 11:05 | PC.SS ---
PASSR completed. Level II Mental Health Evaluation referral is not required due to a Categorical Condition.?On line closure is pending.
--- NOTE | 2025-04-16 12:05 | ESPR_ITS ---
Documentation for date of: 04/16/25 Subjective Subjective Interval history: Patient examined at bedside today. No acute overnight events. Patient reports improvement in his symptoms. He is wondering when to go home. No other complaints at this time. Exam Vital Signs Temp Pulse Resp BP Pulse Ox O2 Del Method O2 Flow Rate 97.0 F 70 16 164/94 H 99 Room Air 2 04/16/25 08:00 04/16/25 08:00 04/16/25 08:00 04/16/25 08:00 04/16/25 08:00 04/16/25 08:00 04/14/25 20:36 FiO2 3 04/14/25 14:01 Narrative Exam GENERAL: NAD, mumbles when spoken to AAOx0 but at baseline mental status per family HEENT: Moist mucosa. Eyes open, symmetrical, & clear CARDIO: Heart RRR, no obvious murmurs PULM: No noted coughing/dyspnea CTA B/L, no R/W/R GI: Abdomen soft, nondistended, no pain on palpation. BSx4 SKIN/MSK/EXT: peripheral edema RLE, LLE minimal edema, no pain on palpation. Pedal pulses present B/L NEURO: Cogwheel rigidity noted with tremors, able to move all 4 extremities, however some residual L sided droop Objective Labs 04/16/25 05:50 04/16/25 05:50 Labs: Laboratory Results - last 24 hr 04/15/25 04/15/25 04/16/25 13:47 22:12 05:50 WBC 6.4 D RBC 4.03 L Hgb 12.5 L Hct 35.9 L MCV 89 MCH 31.0 MCHC 34.8 RDW Std Deviation 42.1 Plt Count 188 Neut % (Auto) 59 Lymph % (Auto) 24 [place] % (Auto) 12 Eos % (Auto) 1 Baso % (Auto) 1 Neut # (Auto) 3.7 Lymph # (Auto) 1.5 [place] # (Auto) 0.8 Eos # (Auto) 0.0 Baso # (Auto) 0.0 Immature Gran # (Auto) 0.26 H Absolute Nucleated RBC 0.00 Immature Gran % 4 H Nucleated RBC % 0 APTT 105.8 H* D 45.0 H D 101.3 H* D Sodium 144 Potassium 3.3 L D Chloride 105 Carbon Dioxide 28.3 Anion Gap 11 BUN 8 L Creatinine 0.8 Estim Creat Clear Calc 82.7 eGFR > 60 BUN/Creatinine Ratio 10 L Glucose 92 Calculated Osmolality 285 Calcium 8.1 L Corrected Calcium 8.7 Phosphorus 2.2 L Magnesium 1.9 Total Bilirubin 0.4 AST 30 ALT 31 Alkaline Phosphatase 104 Total Protein 5.3 L Albumin 3.2 L Globulin 2.1 L Albumin/Globulin Ratio 1.5 ABG Interpretation ABG results: 04/14/25 04:25 ABG pH 7.35 ABG pCO2 38 ABG pO2 94 ABG HCO3 21 ABG O2 Saturation 98 ABG Base Excess -4 L Quality Measures Quality Measures VTE prophylaxis Advance care planning discussed with:: patient Assessment & Plan Assessment Current Active Medications: Generic Name Dose Route Start Last Admin Trade Name Freq PRN Reason Stop Dose Admin Acetaminophen 650 mg 04/14/25 05:15 04/14/25 09:36 Acetaminophen 325 Mg Tablet PO 05/14/25 05:14 650 mg Q6H PRN Administration PAIN OR FEVER > 101 Apixaban 10 mg 04/16/25 21:00 Apixaban 2.5 Mg Tablet PO 04/22/25 21:01 BID ARIANA Atorvastatin Calcium 40 mg 04/15/25 21:00 04/15/25 20:58 Atorvastatin Calcium 20 Mg Tablet PO 05/15/25 20:59 40 mg HS ARIANA Administration Baclofen 10 mg 04/16/25 11:53 Baclofen 10 Mg Tablet PO 05/15/25 05:59 Q8H PRN PAIN (MUSCLE) Donepezil HCl 10 mg 04/15/25 09:00 04/16/25 08:44 Donepezil Hcl 5 Mg Tablet PO 05/15/25 08:59 10 mg QDAY ARIANA Administration Ceftriaxone Sodium/Dextrose 1 gm in 50 mls @ 100 mls/hr 04/15/25 09:00 04/16/25 08:42 Rocephin/D5w 1gm Iv Premix IV 04/18/25 23:59 100 mls/hr QDAY ARIANA Administration Memantine 10 mg 04/14/25 21:00 04/16/25 08:43 Memantine Hcl 5 Mg Tablet PO 05/14/25 20:59 10 mg BID ARIANA Administration Ondansetron HCl 4 mg 04/14/25 05:15 Ondansetron Inj 2 Mg/Ml Inj 2 Ml IVP 05/14/25 05:14 On Hold: 04/14/25 18:25 Q6H PRN NAUSEA OR VOMITING Protocol Quetiapine Fumarate 50 mg 04/16/25 21:00 Quetiapine Fumarate 25 Mg Tablet PO 05/16/25 20:59 HS ARIANA Sennosides 1 tab 04/14/25 18:30 04/16/25 08:44 Senna Tablet PO 05/14/25 18:29 1 tab QDAY ARIANA Administration Protocol Tamsulosin HCl 0.4 mg 04/15/25 09:00 04/16/25 08:44 Tamsulosin Hcl 0.4 Mg Capsule PO 05/15/25 08:59 0.4 mg QDAY ARIANA Administration Plan Assessment 69-year-old male with past medical history of hypertension, sick sinus syndrome status post dual-chamber pacemaker, BPH, history of valley fever, and advanced Alzheimer's disease who was brought to the ED due to generalized weakness, cough, shortness of breath which started around 3 days ago. Admitted to the ICU for septic shock secondary to pneumonia. Cardiology consulted for Pulmonary embolism and DVT. #Acute CVA, ruled out NIHSS score of 4 Baseline of Parkinson's Left-sided facial droop and speech difficulty for symptoms during stroke alert Resuming heparin drip after head CT was negative as this is for pulmonary embolus Brain MRI shows negative for acute hemorrhage, mass effect or midline shift, however prominent microvascular white matter change that could be from dementia Plan: ? Speech therapy ? Lipitor 40 mg Hs ? Eliquis started by primary team for pulmonary embolus ? Echo ? Neurochecks every 4 hours ? Head of bed elevation 30 degrees ? DVT prophylaxis ? Bedrest #Hx of Alzheimer's disease Plan: ? Holding home medicines in setting of stroke rule out ? Recommend to continue home amantadine and donezepil ? Recommend to continue with Seroquel 50 mg at night ? Recommend to discontinue Lexapro ? Recommend to continue with baclofen every 8 hours as needed #Pulmonary embolism #Right lower extremity DVT #Sick sinus syndrome s/p dual chamber pacemaker placement #Community-acquired PNA #Lactic Acidosis #Septic shock-resolved #History of Coccidiomycosis infection #Alzheimer's Dementia #Parkinsons' disease? #Normocytic Anemia Above handled by primary hospitalist team Patient seen and care discussed with my attending physician, Dr. Kiet Goodrich, PGY-2 Attending Provider Attestation/Addendum I personally seen and examined the patient and I agreed with resident's findings, assessment and plan of care. IMP: Stroke ruled out Dementia with progression (clinically and radiologically confirmed) Pulmonary embolism on Eliquis now. Persistent hiccough PLAN AND recs: Continue Donepezil and Memantine Waiting for NH placement
[2025-04-16] MEDS: GABAPENTIN 300 MG CAPSULE PO (17:02)
[2025-04-16] MEDS: APIXABAN 2.5 MG TABLET 10 MG PO (21:31)
[2025-04-16] MEDS: ATORVASTATIN CALCIUM 20 MG TABLET 40 MG PO (21:33)
[2025-04-17] VITALS: BP 134/81; PULSE 60; RESP 12; TEMP 36.4; O2SAT 93
--- NOTE | 2025-04-17 03:41 | PC.NURSE ---
Contacted Dr. Hernandez regarding patient request for medication for hiccups. Per MD. have patient blow into a needless syringes to help with the hiccups. Currently covering primary nurse. Primary nurse notified.
[2025-04-17 04:00] VITALS: BP 147/81; PULSE 64; PULSE 73; RESP 27; TEMP 36.7; O2SAT 96
[2025-04-17] MEDS: GABAPENTIN 100 MG CAPSULE 200 MG PO ×2 (04:02→11:46)
[2025-04-17 05:36] VITALS: BMI 30.3
[2025-04-17 05:40] LABS: Basophils # (Auto) 0.1 Thou/mm3 (0.0-0.2); Basophils % (Auto) 2 % (0-2.5); Eosinophils # (Auto) 0.1 Thou/mm3 (0.0-0.5); Eosinophils % (Auto) 2 % (0-10); Hematocrit 38.1 % (41.0-53.0); Hemoglobin 13.2 g/dL (13.5-16.0); Immature Granulocytes Auto 0.30 Thou/mm3 (0.00-0.00); Lymphocytes # (Auto) 1.4 Thou/mm3 (1.0-4.8); Lymphocytes % (Auto) 25 % (10-50); Mean Corpuscular HGB Conc 34.6 g/dl (31.0-37.0); Mean Corpuscular Hemoglobin 30.9 pg (25.0-35.0); Mean Corpuscular Volume 89 fL (80-100); Monocytes # (Auto) 0.6 Thou/mm3 (0.0-0.8); Monocytes % (Auto) 12 % (0-12); Neutrophils # (Auto) 2.9 Thou/mm3 (1.8-7.7); Neutrophils % (Auto) 54 % (37-80); Nucleated Red Blood Cell # 0.03 Thou/mm3 (0.00-0.00); Nucleated Red Blood Cell % 1 /100 WBC (0); Platelet Count 171 Thou/mm3 (140-440); RDW Standard Deviation 42.4 fL (35.1-43.9); Red Blood Count 4.27 Miln/mm3 (4.50-5.90); White Blood Count 5.4 Thou/mm3 (3.8-10.6)
[2025-04-17 05:59] LABS: Alanine Aminotransferase 61 U/L (10-49); Albumin, Serum 3.4 gm/dL (3.4-4.8); Albumin/Globulin Ratio 1.5 (1.2-2.2); Alkaline Phosphatase 113 U/L (46-116); Anion Gap 11 (7-16); Aspartate Amino Transferase 60 U/L (0-34); BUN/Creatinine Ratio 10 Ratio (12-20); Bilirubin,Total 0.4 mg/dL (0.3-1.2); Blood Urea Nitrogen 8 mg/dL (9-23); Calcium 8.5 mg/dL (8.3-10.6); Calcium (Corrected) 9.0 mg/dL (8.5-10.1); Carbon Dioxide 27.4 mMol/L (20.0-31.0); Chloride 105 mMol/L (98-107); Creatinine (Component) 0.8 mg/dL (0.6-1.3); Estimated Creatinine Clearance 82.1 mL/min (>60); Globulin 2.2 gm/dL (2.3-3.5); Glucose 99 mg/dL (74-106); Magnesium 2.1 mg/dL (1.6-2.6); Osmolality,Calculated 283 (275-295); Phosphorous 3.0 mg/dL (2.4-5.1); Potassium 3.9 mMol/L (3.4-5.1); Sodium 143 mMol/L (136-145); Total Protein 5.6 gm/dL (5.7-8.2); eGFR > 60 See Note
--- NOTE | 2025-04-17 06:45 | PC.NURSE ---
Upon assessment of heels, pressure injury noted on right heel. Skin intact, dark purple/reddish, noted as deep tissue injury. Daughter at bedside notified.
[2025-04-17 08:00] VITALS: BP 134/90; PULSE 62; PULSE 67; RESP 17; TEMP 36.7; O2SAT 93
[2025-04-17] MEDS: cefTRIAXone/D5w 1gm IV premix 1 GM/50 ML BAG IV (09:36)
[2025-04-17] MEDS: APIXABAN 2.5 MG TABLET 10 MG PO ×2 (09:37→20:49)
[2025-04-17] MEDS: TAMSULOSIN HCL 0.4 MG CAPSULE PO (09:37)
[2025-04-17] MEDS: DONEPEZIL HCL 5 MG TABLET 10 MG PO (09:37)
[2025-04-17] MEDS: MEMANTINE HCL 5 MG TABLET 10 MG PO ×2 (09:38→20:50)
--- NOTE | 2025-04-17 10:07 | ESPR_ITS ---
<Statement entered by Julissa Forde MD - 04/17/25 16:41> I personally examined this patient evaluated with resident physician Dr. Serrano PGY2 appears to be doing well patient is tolerating anticoagulation well so far room air saturation 90% mental status is baseline patient probably can be discharged on Eliquis will follow-up as an outpatient. Documentation for date of: 04/17/25 Subjective Subjective Interval history: Patient seen and evaluated at the bedside. Vitals and labs reviewed. Currently resting comfortably. No new issues continues with the prolonged hiccups. Exam Vital Signs Temp Pulse Resp BP Pulse Ox O2 Del Method O2 Flow Rate 98.1 F 62 17 134/90 H 93 L Room Air 2 04/17/25 08:00 04/17/25 08:00 04/17/25 08:00 04/17/25 08:00 04/17/25 08:00 04/17/25 08:00 04/14/25 20:36 FiO2 3 04/14/25 14:01 Narrative Exam GENERAL: NAD, mumbles when spoken to AAOx0 but at baseline mental status per family HEENT: Moist mucosa. Eyes open, symmetrical, & clear CARDIO: Heart RRR, no obvious murmurs PULM: No noted coughing/dyspnea CTA B/L, no R/W/R GI: Abdomen soft, nondistended, no pain on palpation. BSx4 SKIN/MSK/EXT: peripheral edema RLE, LLE minimal edema, no pain on palpation. Pedal pulses present B/L NEURO: Cogwheel rigidity noted with tremors, able to move all 4 extremities Objective Labs 04/17/25 04:24 04/17/25 04:24 Labs: Laboratory Results - last 24 hr 04/17/25 04:24 WBC 5.4 RBC 4.27 L Hgb 13.2 L Hct 38.1 L MCV 89 MCH 30.9 MCHC 34.6 RDW Std Deviation 42.4 Plt Count 171 Neut % (Auto) 54 Lymph % (Auto) 25 [place] % (Auto) 12 Eos % (Auto) 2 Baso % (Auto) 2 Neut # (Auto) 2.9 Lymph # (Auto) 1.4 [place] # (Auto) 0.6 Eos # (Auto) 0.1 Baso # (Auto) 0.1 Immature Gran # (Auto) 0.30 H Absolute Nucleated RBC 0.03 H Immature Gran % 6 H Nucleated RBC % 1 H Sodium 143 Potassium 3.9 D Chloride 105 Carbon Dioxide 27.4 Anion Gap 11 BUN 8 L Creatinine 0.8 Estim Creat Clear Calc 82.1 eGFR > 60 BUN/Creatinine Ratio 10 L Glucose 99 Calculated Osmolality 283 Calcium 8.5 Corrected Calcium 9.0 Phosphorus 3.0 Magnesium 2.1 Total Bilirubin 0.4 AST 60 H ALT 61 H Alkaline Phosphatase 113 Total Protein 5.6 L Albumin 3.4 Globulin 2.2 L Albumin/Globulin Ratio 1.5 ABG Interpretation ABG results: 04/14/25 04:25 ABG pH 7.35 ABG pCO2 38 ABG pO2 94 ABG HCO3 21 ABG O2 Saturation 98 ABG Base Excess -4 L Quality Measures Quality Measures VTE prophylaxis Advance care planning discussed with:: patient Assessment & Plan Assessment Current Active Medications: Generic Name Dose Route Start Last Admin Trade Name Freq PRN Reason Stop Dose Admin Acetaminophen 650 mg 04/14/25 05:15 04/14/25 09:36 Acetaminophen 325 Mg Tablet PO 05/14/25 05:14 650 mg Q6H PRN Administration PAIN OR FEVER > 101 Apixaban 10 mg 04/16/25 21:00 04/17/25 09:37 Apixaban 2.5 Mg Tablet PO 04/22/25 21:01 10 mg BID ARIANA Administration Atorvastatin Calcium 40 mg 04/15/25 21:00 04/16/25 21:33 Atorvastatin Calcium 20 Mg Tablet PO 05/15/25 20:59 40 mg On Hold: 04/17/25 08:00 HS ARIANA Administration Baclofen 10 mg 04/16/25 11:53 Baclofen 10 Mg Tablet PO 05/15/25 05:59 Q8H PRN PAIN (MUSCLE) Donepezil HCl 10 mg 04/15/25 09:00 04/17/25 09:37 Donepezil Hcl 5 Mg Tablet PO 05/15/25 08:59 10 mg QDAY ARIANA Administration Ceftriaxone Sodium/Dextrose 1 gm in 50 mls @ 100 mls/hr 04/15/25 09:00 04/17/25 09:36 Rocephin/D5w 1gm Iv Premix IV 04/18/25 23:59 100 mls/hr QDAY ARIANA Administration Memantine 10 mg 04/14/25 21:00 04/17/25 09:38 Memantine Hcl 5 Mg Tablet PO 05/14/25 20:59 10 mg BID ARIANA Administration Ondansetron HCl 4 mg 04/14/25 05:15 Ondansetron Inj 2 Mg/Ml Inj 2 Ml IVP 05/14/25 05:14 On Hold: 04/14/25 18:25 Q6H PRN NAUSEA OR VOMITING Protocol Quetiapine Fumarate 50 mg 04/16/25 21:00 04/16/25 21:33 Quetiapine Fumarate 25 Mg Tablet PO 05/16/25 20:59 50 mg HS ARIANA Administration Sennosides 1 tab 04/14/25 18:30 04/17/25 09:37 Senna Tablet PO 05/14/25 18:29 1 tab QDAY ARIANA Administration Protocol Tamsulosin HCl 0.4 mg 04/15/25 09:00 04/17/25 09:37 Tamsulosin Hcl 0.4 Mg Capsule PO 05/15/25 08:59 0.4 mg QDAY ARIANA Administration Plan 69-year-old male with past medical history of hypertension, sick sinus syndrome status post dual-chamber pacemaker, BPH, history of valley fever, and advanced Alzheimer's disease who was brought to the ED due to generalized weakness, cough, shortness of breath which started around 3 days ago. Admitted to the ICU for septic shock secondary to pneumonia. Cardiology consulted for Pulmonary embolism and DVT. #Pulmonary embolism #Right lower extremity DVT Patient has been basically immobile for the past 6 months secondary to advanced Alzheimer's dementia. Per the family patient was able to ambulate with a walker, however past few months send has had had to physically carry the patient due to severe weakness. As patient has been immobile this is likely provoked PE due to prolonged immobilization Venous ultrasound of right lower extremity shows extensive acute right leg DVT right superficial femoral vein, popliteal veins CTA chest shows pulmonary artery emboli in the left lower lobe branches of the pulmonary arteries ? Continue heparin drip for at least 48 hours. ? Transition to Eliquis 10 mg twice daily X 7 days, later adjust dose to Eliquis 5 mg twice daily. ? Patient is at risk of recurrent DVTs given his immobility, likely will need lifelong anti-coagulation #Sick sinus syndrome s/p dual chamber pacemaker placement Medtronic [place] [address] Forde for symptomatic bradycardia and sick sinus syndrome Model Elyssa XE, programmed to dual-chamber mode, rate of 60-110 beats per minute, currently rate 78bpm #Community-acquired PNA #Lactic Acidosis #Septic shock-resolved #History of Coccidiomycosis infection #Alzheimer's Dementia #Parkinsons' disease? #Normocytic Anemia ? as per primary team. Case discussed with my attending Dr. Maurisio Serrano MD PGY-2 Disclaimer: Despite multiple revisions, due to the dictation software being used, the document bellow may not be free of grammatical errors including phonetic/typographic errors. However, this does not deter from our commitment to providing health care in the patient's best interest in mind.
--- NOTE | 2025-04-17 10:23 | PD.RESPRO ---
Documentation for date of: 04/17/25 Subjective Subjective Interval history: Overnight events: No acute events overnight. Patient was seen and examined at bedside. AM vitals and labs reviewed. Patient does not appear to be in any acute distress. Periodic hiccuping. Mentation appears about the same as yesterday. Patient's daughter at bedside mentioned that the patient's hiccups appeared to be better controlled with gabapentin last night. AST 60 and ALT 61. Gave one-time dose of chlorpromazine 10 mg for hiccups. Started gabapentin 200 mg twice daily as needed for hiccups. Continue Eliquis 10 mg twice daily, day 2 of 7, then transition to Eliquis 5 mg twice daily. Increased Seroquel to 100 mg nightly. Baclofen stopped as patient's daughter mentions that it does not help with patient's hiccups and the patient has not been taking them outside of the hospital. Held atorvastatin 40 mg nightly given elevation in liver enzymes. Repeat LFT shows AST 111 and ALT 102, prompting 1 L LR IVF and abdominal ultrasound, which showed cholelithiasis with normal gallbladder wall size, normal common bile duct size, and 14 cm fatty infiltration in the liver with no focal liver lesions. Review of systems otherwise negative except for what is mentioned above. Exam Vital Signs Temp Pulse Resp BP Pulse Ox O2 Del Method O2 Flow Rate 98.1 F 62 17 134/90 H 93 L Room Air 2 04/17/25 08:00 04/17/25 08:00 04/17/25 08:00 04/17/25 08:00 04/17/25 08:00 04/17/25 08:00 04/14/25 20:36 FiO2 3 04/14/25 14:01 Narrative Exam Physical Exam: General: Sleepy, no acute distress. Skin: Warm, dry, intact. Head: Normocephalic, atraumatic. Eye: Normal conjunctiva, PERRL. Throat: Oral mucosa moist. No obvious lesions in oropharynx. Cardiovascular: Regular rate and rhythm, no murmur, +S1/S2. Respiratory: Lungs are clear to auscultation, respirations unlabored, no crackles, no wheezing. Gastrointestinal: Soft, nontender, non-distended. No guarding or rebound tenderness. Extremities: No edema, no cyanosis, no clubbing. Neuro: No focal deficits observed. Moving all extremities. No overt cerebellar signs/incoordination. Objective Labs 04/19/25 04:08 04/19/25 04:08 Labs: Laboratory Results - last 24 hr 04/17/25 04:24 WBC 5.4 RBC 4.27 L Hgb 13.2 L Hct 38.1 L MCV 89 MCH 30.9 MCHC 34.6 RDW Std Deviation 42.4 Plt Count 171 Neut % (Auto) 54 Lymph % (Auto) 25 Nicholas % (Auto) 12 Eos % (Auto) 2 Baso % (Auto) 2 Neut # (Auto) 2.9 Lymph # (Auto) 1.4 Nicholas # (Auto) 0.6 Eos # (Auto) 0.1 Baso # (Auto) 0.1 Immature Gran # (Auto) 0.30 H Absolute Nucleated RBC 0.03 H Immature Gran % 6 H Nucleated RBC % 1 H Sodium 143 Potassium 3.9 D Chloride 105 Carbon Dioxide 27.4 Anion Gap 11 BUN 8 L Creatinine 0.8 Estim Creat Clear Calc 82.1 eGFR > 60 BUN/Creatinine Ratio 10 L Glucose 99 Calculated Osmolality 283 Calcium 8.5 Corrected Calcium 9.0 Phosphorus 3.0 Magnesium 2.1 Total Bilirubin 0.4 AST 60 H ALT 61 H Alkaline Phosphatase 113 Total Protein 5.6 L Albumin 3.4 Globulin 2.2 L Albumin/Globulin Ratio 1.5 ABG Interpretation ABG results: 04/14/25 04:25 ABG pH 7.35 ABG pCO2 38 ABG pO2 94 ABG HCO3 21 ABG O2 Saturation 98 ABG Base Excess -4 L Quality Measures Quality Measures VTE prophylaxis Advance care planning discussed with:: patient and child Assessment & Plan Assessment Current Active Medications: Generic Name Dose Route Start Last Admin Trade Name Estela PRN Reason Stop Dose Admin Apixaban 10 mg 04/16/25 21:00 04/17/25 09:37 Apixaban 2.5 Mg Tablet PO 04/22/25 21:01 10 mg BID ARIANA Administration Atorvastatin Calcium 40 mg 04/15/25 21:00 04/16/25 21:33 Atorvastatin Calcium 20 Mg Tablet PO 05/15/25 20:59 40 mg On Hold: 04/17/25 08:00 HS ARIANA Administration Baclofen 10 mg 04/17/25 10:30 Baclofen 10 Mg Tablet PO 05/17/25 10:29 Q8H ARIANA Chlorpromazine HCl 10 mg 04/17/25 10:20 Chlorpromazine 10 Mg Tablet PO 04/17/25 10:21 X1 ONE Donepezil HCl 10 mg 04/15/25 09:00 04/17/25 09:37 Donepezil Hcl 5 Mg Tablet PO 05/15/25 08:59 10 mg QDAY ARIANA Administration Ceftriaxone Sodium/Dextrose 1 gm in 50 mls @ 100 mls/hr 04/15/25 09:00 04/17/25 09:36 Rocephin/D5w 1gm Iv Premix IV 04/18/25 23:59 100 mls/hr QDAY ARIANA Administration Memantine 10 mg 04/14/25 21:00 04/17/25 09:38 Memantine Hcl 5 Mg Tablet PO 05/14/25 20:59 10 mg BID ARIANA Administration Ondansetron HCl 4 mg 04/14/25 05:15 Ondansetron Inj 2 Mg/Ml Inj 2 Ml IVP 05/14/25 05:14 On Hold: 04/14/25 18:25 Q6H PRN NAUSEA OR VOMITING Protocol Quetiapine Fumarate 50 mg 04/16/25 21:00 04/16/25 21:33 Quetiapine Fumarate 25 Mg Tablet PO 05/16/25 20:59 50 mg HS ARIANA Administration Sennosides 1 tab 04/14/25 18:30 04/17/25 09:37 Senna Tablet PO 05/14/25 18:29 1 tab QDAY ARIANA Administration Protocol Tamsulosin HCl 0.4 mg 04/15/25 09:00 04/17/25 09:37 Tamsulosin Hcl 0.4 Mg Capsule PO 05/15/25 08:59 0.4 mg QDAY ARIANA Administration Plan 69-year-old male with past medical history of Alzheimer's dementia, Parkinson's, BPH, hypertension, coccidiomycosis infection, pacemaker for sick sinus syndrome who presented to the ED on 04/13 with episodes of generalized weakness, cough, hiccups found to have DVT of right lower extremity along with PE of the left lower lobe along with mild pneumonia. #Transaminitis #Fatty liver disease #Cholelithiasis, without cholecystitis Patient noted to have AST of 60 and ALT of 61 on 04/17 AM. Repeat LFTs showed AST 111, ALT 102, and ALP 134 on 04/17. Abdominal ultrasound 04/17 showed cholelithiasis with normal gallbladder wall size, normal common bile duct size, and 14 cm fatty infiltration in the liver with no focal liver lesions. Plan: Stopped ceftriaxone and atorvastatin 1L LR IVF Will continue to monitor, if elevated 04/18 AM, will pursue further workup #Left lower pulmonary embolism #Provoked PE #Right lower extremity DVT As noted in HPI, patient presented with episode of shortness of breath, cough and hiccups; bedbound for months per family Initial chest x-ray did not show any active disease but there was some atelectasis EKG showed sinus rhythm with occasional PVCs Chest CTA showed positive for pulmonary artery emboli in the left lower lobe pulmonary artery branches, pneumonia both bases and cholelithiasis Venous Doppler study showed extensive acute right leg DVT Head CT did not show any active disease Plan: Eliquis 10 mg twice daily for a total of 7 days (day 2/7), then 5 mg twice daily indefinitely #Acute CVA rule out Left-sided facial droop and speech difficulty noted in the evening of 04/14. Physical exam shows no acute symptoms, possibly resolved. CT head and CTA head/neck negative. Plan: Neurology consulted, appreciate recommendations Neurochecks every 4 hours, head of bed elevation 30 degrees Echocardiogram ordered, resulted as normal left ventricular size and function with EF 60-65% MRI with MRA brain ordered, did not show any signs of acute CVA Speech therapy referral order, notes that patient forgets to chew food and recommends advance textures for diet #Community-acquired PNA #Lactic Acidosis #Initially septic shock, resolved As noted above and assess CTA there is some concern for pneumonia In the ED patient's BP with MAP <65 and lactic acid present even with fluids so pressors were momentarily started - but discontinued shortly thereafter Patient clinically appears stable without any symptoms of pneumonia, no fever and no WBC Patient does have some lactic acidosis and anion gap moderately elevated at 17 Plan: Ceftriaxone 1 gm daily (04/14-04/17) Azithromycin 500 mg daily(04/14-04/16) #Sick sinus syndrome s/p dual chamber pacemaker placement Chronic medical history. Per cardiology, it is a [employer] pacemaker [place] [address] Forde for symptomatic bradycardia and sick sinus syndrome. Plan: Cardiology consulted for recommendations regarding pacemaker functionality #Hiccups, recurrent Patient appears to have frequent hiccups. Patient's family members have notified nursing staff multiple times seeking treatment of hiccups. The patient has been prescribed baclofen 10 mg every 8 hours at home, but patient's family members state that it does not help the patient and they have do not give it to the patient as a result. One-time dose of gabapentin on 04/16 overnight seemed to help with hiccups per family members at bedside. Plan: Gabapentin 200 mg twice daily as needed One-time dose of chlorpromazine 10 mg on 04/17 #History of Coccidiomycosis infection Chronic medical condition, patient has been treated with antifungals per family Plan: Follow-up with primary care physician upon discharge #Alzheimer's Dementia #Parkinsons' disease? Patient on home baclofen 10 mg p.o. every 8, donepezil 10 mg p.o. daily, memantine 10 mg p.o. twice daily, Seroquel 50 mg p.o. twice daily Plan: Seroquel 50 mg nightly Donepezil 10 mg daily Memantine 10 mg twice daily Per neurology, advised patient to stop home escitalopram 20 mg daily on discharge #Normocytic Anemia Hemoglobin dropped from 15.7-13.0 within 24 hours Low suspicion for acute blood loss anemia as there is no clear signs of blood loss Differentials include: Iron deficiency anemia, anemia of chronic disease, vitamin deficiency but less likely to be hemolytic anemia or myelosuppression Plan: Iron panel ordered, results non-specific #BPH Patient has a history of BPH. Patient takes tamsulosin 0.4 mg at home. Plan: Resume home tamsulosin 0.4 mg daily Crow catheter removed 04/15, will continue to monitor if patient retains urine Health Maintenance: Lines: PIV Diet: Regular Bowel: Senna GI prophylaxis: Not needed DVT prophylaxis: Eliquis Dispo: Likely SNF placement within next 24 hours Code: Full Patient seen and assessed with attending Dr. Michael Lemons, PGY-1 Attending Provider Attestation/Addendum Face to face evaluation was performed by me. I have personally seen and examined the patient. I discussed the assessment and plan with the entire medicine team. I reviewed available medical records, imaging studies, laboratory results. I agree with the above subjective data, objective findings, assessment and plan except as corrected by me or noted below Elevated liver enzymes suspected to be due to medication induced plan liver injury?atorvastatin Acute VTE on Eliquis for anticoagulation /Hypertension Hiccups BPH Continue his apixaban?starter pack for PE. Was on heparin drip before Holding statin due to elevated liver enzymes Disposition As needed gabapentin for hiccups?seems to be working. increase his Seroquel dosage at nighttime More than > 30 minutes spent on the encounter
--- NOTE | 2025-04-17 11:53 | PC.SS ---
Prepress Stripper (ANGELIA) Do notified by E Resident Dr. Keith that patient was a possible discharge for today. ANGELIA met with patient's daughter, Nydia. Per Nydia, her and family decided for patient to attend [facility]. ANGELIA contacted [facility] to close [facility] [place]. SW is awaiting for discharge orders.
[2025-04-17 12:00] VITALS: BP 143/89; PULSE 82; PULSE 87; RESP 24; TEMP 36.2; O2SAT 97
--- NOTE | 2025-04-17 13:25 | PC.SS ---
SS accessed chart for review for Mary HERRERA who inquired on pt choice for SNF. SS informed Mary per ANGELIA Lei note, family decided on their facility, pending DC orders.
[2025-04-17 16:00] VITALS: BP 137/72; PULSE 65; PULSE 89; RESP 20; TEMP 36.4; O2SAT 95
[2025-04-17 16:29] LABS: Alanine Aminotransferase 102 U/L (10-49); Albumin, Serum 3.5 gm/dL (3.4-4.8); Alkaline Phosphatase 134 U/L (46-116); Aspartate Amino Transferase 111 U/L (0-34); Bilirubin,Direct < 0.1 mg/dL (0.0-0.3); Bilirubin,Total 0.3 mg/dL (0.3-1.2); Total Protein 5.8 gm/dL (5.7-8.2)
--- NOTE | 2025-04-17 16:44 | XR_ITS ---
Examination: Abdomen sonogram, Limited Date and time of exam: April 17, 2025, 1653 hrs. Indications: Elevated liver function tests on laboratory examination today Technique: Real-time rosa scale transabdominal sonographic images of the upper abdomen obtained. Findings: Cholelithiasis, normal gallbladder wall 0.3 cm. Normal common bile duct 0.3 cm. Pancreatic head 2.6 cm. Liver 14 cm fatty infiltration no focal liver lesions. Normal hepatopedal portal venous flow. Patent IVC Impression: Cholelithiasis Liver normal size fatty infiltration
[2025-04-17] MEDS: RINGERS LACTATED 1000 ML 1,000 ML 100 ML IV (17:13)
[2025-04-17 20:00] VITALS: BP 138/71; PULSE 64; PULSE 79; RESP 17; TEMP 36.6; O2SAT 98
--- NOTE | 2025-04-17 23:49 | PD.NEUROPROG ---
Documentation for date of: 04/17/25 Subjective Subjective Interval history: Patient was seen in telemetry today with his family at the bedside. His hiccups has been under control with the Thorazine/gabapentin combination. Exam - Neurology Vital Signs Temp Pulse Resp BP Pulse Ox O2 Del Method O2 Flow Rate 97.9 F 64 17 138/71 H 98 Room Air 2 04/17/25 20:00 04/17/25 20:00 04/17/25 20:00 04/17/25 20:00 04/17/25 20:00 04/17/25 20:00 04/14/25 20:36 FiO2 3 04/14/25 14:01 Narrative Exam GENERAL APPEARANCE: Well hydrated, well-nourished in no acute distress. HEENT: Normocephalic, atraumatic, extraocular movements intact. Pupils: Equal reacting to light NECK: Supple, no JVD or bruits. CARDIOVASULAR: Heart: S1, S2 heard, regular without S3-S4 or murmur no rubs or gallops. LUNGS/CHEST: Clear to auscultation bilaterally. No rails, rhonchi, or wheezing. Normal inspection. ABDOMEN: Soft, nontender, with normal bowel sounds. No pulsatile masses. No rebound, rigidity, or guarding. Normal inspection and palpation. EXTREMITIES: Normal inspection and palpation. No edema, clubbing or cyanosis. SKIN: Warm and dry without rashes. Normal inspection. MUSCULOSKELETAL: No cervical, thoracic, lumbar or midline bony tenderness. Normal inspection. NEURO: Alert, awake. Moves all 4 extremities purposefully but not on commands. Rest of the exam: Limited secondary to profound dementia at baseline. no signs of meningeal irritation noted. PSYCHIATRIC: Limited but stable. Objective Labs 04/18/25 05:49 04/18/25 05:49 Labs: Laboratory Results - last 24 hr 04/17/25 04/17/25 04:24 13:58 WBC 5.4 RBC 4.27 L Hgb 13.2 L Hct 38.1 L MCV 89 MCH 30.9 MCHC 34.6 RDW Std Deviation 42.4 Plt Count 171 Neut % (Auto) 54 Lymph % (Auto) 25 [place] % (Auto) 12 Eos % (Auto) 2 Baso % (Auto) 2 Neut # (Auto) 2.9 Lymph # (Auto) 1.4 [place] # (Auto) 0.6 Eos # (Auto) 0.1 Baso # (Auto) 0.1 Immature Gran # (Auto) 0.30 H Absolute Nucleated RBC 0.03 H Immature Gran % 6 H Nucleated RBC % 1 H Sodium 143 Potassium 3.9 D Chloride 105 Carbon Dioxide 27.4 Anion Gap 11 BUN 8 L Creatinine 0.8 Estim Creat Clear Calc 82.1 eGFR > 60 BUN/Creatinine Ratio 10 L Glucose 99 Calculated Osmolality 283 Calcium 8.5 Corrected Calcium 9.0 Phosphorus 3.0 Magnesium 2.1 Total Bilirubin 0.4 0.3 Direct Bilirubin < 0.1 AST 60 H 111 H ALT 61 H 102 H Alkaline Phosphatase 113 134 H D Total Protein 5.6 L 5.8 Albumin 3.4 3.5 Globulin 2.2 L Albumin/Globulin Ratio 1.5 ABG Interpretation ABG results: 04/14/25 04:25 ABG pH 7.35 ABG pCO2 38 ABG pO2 94 ABG HCO3 21 ABG O2 Saturation 98 ABG Base Excess -4 L Assessment & Plan Assessment and plan (1) Dementia: Status: Chronic Assessment and plan: Stable, continue with memantine and donepezil, and Seroquel as before. Continue to monitor for any worsening mood and behaviors. Waiting for placement (2) Pulmonary embolism: Status: Acute Assessment and plan: On anticoagulant therapy.
[2025-04-18] VITALS (7 sets, daily range): BP systolic 109–140; BP diastolic 73–95; PULSE 61–78; RESP 15–21; TEMP 35.9–37.3; O2SAT 94–97; BMI 30.6
[2025-04-18] MEDS: GABAPENTIN 100 MG CAPSULE 200 MG PO (00:40)
[2025-04-18 06:12] LABS: Basophils # (Auto) 0.1 Thou/mm3 (0.0-0.2); Basophils % (Auto) 2 % (0-2.5); Eosinophils # (Auto) 0.2 Thou/mm3 (0.0-0.5); Eosinophils % (Auto) 3 % (0-10); Hematocrit 37.8 % (41.0-53.0); Hemoglobin 12.7 g/dL (13.5-16.0); Immature Granulocytes Auto 0.33 Thou/mm3 (0.00-0.00); Lymphocytes # (Auto) 1.6 Thou/mm3 (1.0-4.8); Lymphocytes % (Auto) 27 % (10-50); Mean Corpuscular HGB Conc 33.6 g/dl (31.0-37.0); Mean Corpuscular Hemoglobin 30.4 pg (25.0-35.0); Mean Corpuscular Volume 90 fL (80-100); Monocytes # (Auto) 0.6 Thou/mm3 (0.0-0.8); Monocytes % (Auto) 11 % (0-12); Neutrophils # (Auto) 3.1 Thou/mm3 (1.8-7.7); Neutrophils % (Auto) 53 % (37-80); Nucleated Red Blood Cell # 0.03 Thou/mm3 (0.00-0.00); Nucleated Red Blood Cell % 1 /100 WBC (0); Platelet Count 196 Thou/mm3 (140-440); RDW Standard Deviation 42.9 fL (35.1-43.9); Red Blood Count 4.18 Miln/mm3 (4.50-5.90); White Blood Count 5.9 Thou/mm3 (3.8-10.6)
[2025-04-18 06:22] LABS: INR 1.1 (0.9-1.3); Partial Thromboplastin Time 29.1 Seconds (22.0-36.0); Prothrombin Time 12.0 Seconds (9.0-12.2)
[2025-04-18 06:42] LABS: Alanine Aminotransferase 182 U/L (10-49); Albumin, Serum 3.3 gm/dL (3.4-4.8); Albumin/Globulin Ratio 1.5 (1.2-2.2); Alkaline Phosphatase 126 U/L (46-116); Anion Gap 9 (7-16); Aspartate Amino Transferase 192 U/L (0-34); BUN/Creatinine Ratio 10 Ratio (12-20); Bilirubin,Total 0.4 mg/dL (0.3-1.2); Blood Urea Nitrogen 8 mg/dL (9-23); Calcium 8.5 mg/dL (8.3-10.6); Calcium (Corrected) 9.1 mg/dL (8.5-10.1); Carbon Dioxide 28.8 mMol/L (20.0-31.0); Chloride 104 mMol/L (98-107); Creatinine (Component) 0.8 mg/dL (0.6-1.3); Estimated Creatinine Clearance 82.5 mL/min (>60); Globulin 2.2 gm/dL (2.3-3.5); Glucose 90 mg/dL (74-106); Magnesium 2.0 mg/dL (1.6-2.6); Osmolality,Calculated 281 (275-295); Phosphorous 3.0 mg/dL (2.4-5.1); Potassium 3.8 mMol/L (3.4-5.1); Sodium 142 mMol/L (136-145); Total Protein 5.5 gm/dL (5.7-8.2); eGFR > 60 See Note
[2025-04-18] MEDS: MEMANTINE HCL 5 MG TABLET 10 MG PO ×2 (08:11→20:39)
[2025-04-18] MEDS: TAMSULOSIN HCL 0.4 MG CAPSULE PO (08:11)
[2025-04-18] MEDS: RINGERS LACTATED 1000 ML 1,000 ML 100 ML IV (08:11)
[2025-04-18] MEDS: APIXABAN 2.5 MG TABLET 10 MG PO ×2 (08:12→20:39)
[2025-04-18] MEDS: DONEPEZIL HCL 5 MG TABLET 10 MG PO (08:12)
--- NOTE | 2025-04-18 09:28 | ESPR_ITS ---
<Statement entered by Erik Keith MD - 04/18/25 15:12> No acute overnight events. Patient is awake, able to maintain conversation and denies any further complaints. Noted to have hiccups completely stopped as of today. Daughter at the bedside said the patient still had hiccups last night for which she received gabapentin and responded well to it. Vitals are stable. Labs from this morning still showed uptrending transaminase levels, which could be due to statin. Ultrasound abdomen was done and did not show any CBD or gallbladder abnormality. Will repeat LFT around 2 PM and if it is downtrending, will discharge patient facility. I have personally seen and examined the patient, agree with residents assessment and plan Patient plan of care was discussed with the attending physician, Dr. Michael Keith, PGY2 Documentation for date of: 04/18/25 Subjective Subjective Interval history: Overnight events: No acute events overnight. Patient was seen and examined at bedside. AM vitals and labs reviewed. Patient doing well today, smiling and happy. Patient's family state that the gabapentin has helped a lot for his hiccups. AST 192, ALT 182. Abdominal ultrasound done yesterday showed cholelithiasis and fatty liver. Repeat LFT 1400, if decreased then patient can be discharged. Will advised to hold off on taking statin and follow-up outpatient. Ordered LR 1 L bolus. Review of systems otherwise negative except for what is mentioned above. Exam Vital Signs Temp Pulse Resp BP Pulse Ox O2 Del Method O2 Flow Rate 97.5 F 63 15 128/81 96 Room Air 2 04/18/25 07:54 04/18/25 07:54 04/18/25 07:54 04/18/25 07:54 04/18/25 07:54 04/18/25 07:54 04/14/25 20:36 FiO2 3 04/14/25 14:01 Narrative Exam Physical Exam: General: Sleepy, no acute distress. Skin: Warm, dry, intact. Head: Normocephalic, atraumatic. Eye: Normal conjunctiva, PERRL. Throat: Oral mucosa moist. No obvious lesions in oropharynx. Cardiovascular: Regular rate and rhythm, no murmur, +S1/S2. Respiratory: Lungs are clear to auscultation, respirations unlabored, no crackles, no wheezing. Gastrointestinal: Soft, nontender, non-distended. No guarding or rebound tenderness. Extremities: No edema, no cyanosis, no clubbing. Neuro: No focal deficits observed. Moving all extremities. No overt cerebellar signs/incoordination. Objective Labs 04/19/25 04:08 04/19/25 04:08 Labs: Laboratory Results - last 24 hr 04/17/25 04/18/25 13:58 05:49 WBC 5.9 RBC 4.18 L Hgb 12.7 L Hct 37.8 L MCV 90 MCH 30.4 MCHC 33.6 RDW Std Deviation 42.9 Plt Count 196 Neut % (Auto) 53 Lymph % (Auto) 27 [place] % (Auto) 11 Eos % (Auto) 3 Baso % (Auto) 2 Neut # (Auto) 3.1 Lymph # (Auto) 1.6 [place] # (Auto) 0.6 Eos # (Auto) 0.2 Baso # (Auto) 0.1 Immature Gran # (Auto) 0.33 H Absolute Nucleated RBC 0.03 H Immature Gran % 6 H Nucleated RBC % 1 H PT 12.0 INR 1.1 APTT 29.1 D Sodium 142 Potassium 3.8 Chloride 104 Carbon Dioxide 28.8 Anion Gap 9 BUN 8 L Creatinine 0.8 Estim Creat Clear Calc 82.5 eGFR > 60 BUN/Creatinine Ratio 10 L Glucose 90 Calculated Osmolality 281 Calcium 8.5 Corrected Calcium 9.1 Phosphorus 3.0 Magnesium 2.0 Total Bilirubin 0.3 0.4 Direct Bilirubin < 0.1 AST 111 H 192 H ALT 102 H 182 H Alkaline Phosphatase 134 H D 126 H Total Protein 5.8 5.5 L Albumin 3.5 3.3 L Globulin 2.2 L Albumin/Globulin Ratio 1.5 ABG Interpretation ABG results: 04/14/25 04:25 ABG pH 7.35 ABG pCO2 38 ABG pO2 94 ABG HCO3 21 ABG O2 Saturation 98 ABG Base Excess -4 L Quality Measures Quality Measures VTE prophylaxis Advance care planning discussed with:: patient, spouse and child Assessment & Plan Assessment Current Active Medications: Generic Name Dose Route Start Last Admin Trade Name Freq PRN Reason Stop Dose Admin Apixaban 10 mg 04/16/25 21:00 04/18/25 08:12 Apixaban 2.5 Mg Tablet PO 04/22/25 21:01 10 mg BID ARIANA Administration Atorvastatin Calcium 40 mg 04/15/25 21:00 04/16/25 21:33 Atorvastatin Calcium 20 Mg Tablet PO 05/15/25 20:59 40 mg On Hold: 04/17/25 08:00 HS ARIANA Administration Chlorpromazine HCl 25 mg 04/17/25 11:27 Chlorpromazine 25 Mg Tablet PO 04/20/25 11:26 X1 PRN hiccups Protocol Donepezil HCl 10 mg 04/15/25 09:00 04/18/25 08:12 Donepezil Hcl 5 Mg Tablet PO 05/15/25 08:59 10 mg QDAY ARIANA Administration Gabapentin 200 mg 04/17/25 11:29 04/18/25 00:40 Gabapentin 100 Mg Capsule PO 05/17/25 11:29 200 mg BID PRN Administration hiccups Protocol Lactated Ringer's 1,000 mls @ 100 mls/hr 04/18/25 07:34 04/18/25 08:11 Lactated Ringers IV 04/18/25 17:33 100 mls/hr .Q10H ONE Administration Memantine 10 mg 04/14/25 21:00 04/18/25 08:11 Memantine Hcl 5 Mg Tablet PO 05/14/25 20:59 10 mg BID ARIANA Administration Ondansetron HCl 4 mg 04/14/25 05:15 Ondansetron Inj 2 Mg/Ml Inj 2 Ml IVP 05/14/25 05:14 On Hold: 04/14/25 18:25 Q6H PRN NAUSEA OR VOMITING Protocol Quetiapine Fumarate 100 mg 04/17/25 21:00 04/17/25 20:50 Quetiapine Fumarate 25 Mg Tablet PO 05/17/25 20:59 100 mg HS ARIANA Administration Sennosides 1 tab 04/14/25 18:30 04/18/25 08:12 Senna Tablet PO 05/14/25 18:29 1 tab QDAY ARIANA Administration Protocol Tamsulosin HCl 0.4 mg 04/15/25 09:00 04/18/25 08:11 Tamsulosin Hcl 0.4 Mg Capsule PO 05/15/25 08:59 0.4 mg QDAY ARIANA Administration Plan 69-year-old male with past medical history of Alzheimer's dementia, Parkinson's, BPH, hypertension, coccidiomycosis infection, pacemaker for sick sinus syndrome who presented to the ED on 04/13 with episodes of generalized weakness, cough, hiccups found to have DVT of right lower extremity along with PE of the left lower lobe along with mild pneumonia. #Transaminitis #Fatty liver disease #Cholelithiasis, without cholecystitis Patient noted to have AST of 60 and ALT of 61 on 04/17 AM. Repeat LFTs showed AST 111, ALT 102, and ALP 134 on 04/17. Abdominal ultrasound 04/17 showed cholelithiasis with normal gallbladder wall size, normal common bile duct size, and 14 cm fatty infiltration in the liver with no focal liver lesions. Plan: Stopped ceftriaxone and atorvastatin 1L LR IVF 04/17 and 04/18 Will continue to monitor Repeat LFTs 1400, if decreasing then will plan for discharge and advise patient to hold off on atorvastatin on discharge #Left lower pulmonary embolism #Provoked PE #Right lower extremity DVT As noted in HPI, patient presented with episode of shortness of breath, cough and hiccups; bedbound for months per family Initial chest x-ray did not show any active disease but there was some atelectasis EKG showed sinus rhythm with occasional PVCs Chest CTA showed positive for pulmonary artery emboli in the left lower lobe pulmonary artery branches, pneumonia both bases and cholelithiasis Venous Doppler study showed extensive acute right leg DVT Head CT did not show any active disease Plan: Eliquis 10 mg twice daily for a total of 7 days (day 2/7), then 5 mg twice daily indefinitely #Acute CVA rule out Left-sided facial droop and speech difficulty noted in the evening of 04/14. Physical exam shows no acute symptoms, possibly resolved. CT head and CTA head/neck negative. Plan: Neurology consulted, appreciate recommendations Neurochecks every 4 hours, head of bed elevation 30 degrees Echocardiogram ordered, resulted as normal left ventricular size and function with EF 60-65% MRI with MRA brain ordered, did not show any signs of acute CVA Speech therapy referral order, notes that patient forgets to chew food and recommends advance textures for diet #Community-acquired PNA #Lactic Acidosis #Initially septic shock, resolved As noted above and assess CTA there is some concern for pneumonia In the ED patient's BP with MAP <65 and lactic acid present even with fluids so pressors were momentarily started - but discontinued shortly thereafter Patient clinically appears stable without any symptoms of pneumonia, no fever and no WBC Patient does have some lactic acidosis and anion gap moderately elevated at 17 Ceftriaxone completed 4-day course as low suspicion for PNA and possible cause of transaminitis Plan: Ceftriaxone 1 gm daily (04/14-04/17) Azithromycin 500 mg daily(04/14-04/16) #Sick sinus syndrome s/p dual chamber pacemaker placement Chronic medical history. Per cardiology, it is a [employer] pacemaker [place] [address] Forde for symptomatic bradycardia and sick sinus syndrome. Plan: Cardiology consulted for recommendations regarding pacemaker functionality #Hiccups, recurrent Patient appears to have frequent hiccups. Patient's family members have notified nursing staff multiple times seeking treatment of hiccups. The patient has been prescribed baclofen 10 mg every 8 hours at home, but patient's family members state that it does not help the patient and they have do not give it to the patient as a result. One-time dose of gabapentin on 04/16 overnight seemed to help with hiccups per family members at bedside. Plan: Gabapentin 200 mg twice daily as needed One-time dose of chlorpromazine 10 mg on 04/17 #History of Coccidiomycosis infection Chronic medical condition, patient has been treated with antifungals per family Plan: Follow-up with primary care physician upon discharge #Alzheimer's Dementia #Parkinsons' disease? Patient on home baclofen 10 mg p.o. every 8, donepezil 10 mg p.o. daily, memantine 10 mg p.o. twice daily, Seroquel 50 mg p.o. twice daily Plan: Seroquel 50 mg nightly Donepezil 10 mg daily Memantine 10 mg twice daily Per neurology, advised patient to stop home escitalopram 20 mg daily on discharge #Normocytic Anemia Hemoglobin dropped from 15.7-13.0 within 24 hours Low suspicion for acute blood loss anemia as there is no clear signs of blood loss Differentials include: Iron deficiency anemia, anemia of chronic disease, vitamin deficiency but less likely to be hemolytic anemia or myelosuppression Plan: Iron panel ordered, results non-specific #BPH Patient has a history of BPH. Patient takes tamsulosin 0.4 mg at home. Plan: Resume home tamsulosin 0.4 mg daily Crow catheter removed 04/15, will continue to monitor if patient retains urine Health Maintenance: Lines: PIV Diet: Regular Bowel: Senna GI prophylaxis: Not needed DVT prophylaxis: Eliquis Dispo: Likely SNF placement within next 24 hours Code: Full Patient seen and assessed with attending Dr. Rodriguez and Dr. Keith (PGY-2) Dhiraj Lemons, PGY-1 Attending Provider Attestation/Addendum Face to face evaluation was performed by me. I have personally seen and examined the patient. I discussed the assessment and plan with the entire medicine team. I reviewed available medical records, imaging studies, laboratory results. I agree with the above subjective data, objective findings, assessment and plan except as corrected by me or noted below Elevated liver enzymes suspected to be due to medication induced plan liver injury?atorvastatin Acute VTE on Eliquis for anticoagulation /Hypertension Hiccups BPH LFTs were still going up, continue to hold statin and avoid his usage, continue to avoid acetaminophen usage as well as NSAIDs usage. Anticipate LFTs will start improving prednisone, hiccups seem to be improved plan to discharge to intermediate facility for rehabilitation once LFTs are downtrending More than > 30 minutes spent on the encounter
[2025-04-18 16:14] LABS: Alanine Aminotransferase 226 U/L (10-49); Albumin, Serum 3.3 gm/dL (3.4-4.8); Alkaline Phosphatase 141 U/L (46-116); Aspartate Amino Transferase 197 U/L (0-34); Bilirubin,Direct < 0.1 mg/dL (0.0-0.3); Bilirubin,Total 0.3 mg/dL (0.3-1.2); Total Protein 5.2 gm/dL (5.7-8.2)
--- NOTE | 2025-04-18 16:23 | PC.SS ---
Rounding: Pending labs for DC to [facility]. LFTs elevated.
[2025-04-18 17:01] LABS: Creatine Kinase 55 U/L (34-171); LDH (Lactate Dehydrogenase) 405 U/L (120-246)
[2025-04-18] MEDS: BALSAM PERU/CASTOR OIL (Venelex) 60 GM TUBE TOP (20:39)
[2025-04-18 22:34] LABS: Hepatitis A Antibody IgM Non Reactive (Non React); Hepatitis B Core Antibody IgM Non Reactive (Non React); Hepatitis B Surface Antigen Non Reactive (Non React); Hepatitis C Antibody Non Reactive (Non React)
--- NOTE | 2025-04-18 23:23 | ESPR_ITS ---
Documentation for date of: 04/18/25 Subjective Subjective Interval history: Patient was seen in telemetry today with his family at the bedside. His hiccups has been under control with the Thorazine/gabapentin combination. Exam - Neurology Vital Signs Temp Pulse Resp BP Pulse Ox O2 Del Method O2 Flow Rate 98.2 F 78 21 H 132/73 H 94 L Room Air 2 04/18/25 20:00 04/18/25 20:00 04/18/25 20:00 04/18/25 20:00 04/18/25 20:00 04/18/25 20:00 04/14/25 20:36 FiO2 3 04/14/25 14:01 Narrative Exam GENERAL APPEARANCE: Well hydrated, well-nourished in no acute distress. HEENT: Normocephalic, atraumatic, extraocular movements intact. Pupils: Equal reacting to light NECK: Supple, no JVD or bruits. CARDIOVASULAR: Heart: S1, S2 heard, regular without S3-S4 or murmur no rubs or gallops. LUNGS/CHEST: Clear to auscultation bilaterally. No rails, rhonchi, or wheezing. Normal inspection. ABDOMEN: Soft, nontender, with normal bowel sounds. No pulsatile masses. No rebound, rigidity, or guarding. Normal inspection and palpation. EXTREMITIES: Normal inspection and palpation. No edema, clubbing or cyanosis. SKIN: Warm and dry without rashes. Normal inspection. MUSCULOSKELETAL: No cervical, thoracic, lumbar or midline bony tenderness. Normal inspection. NEURO: Alert, awake. Moves all 4 extremities purposefully but not on commands. Rest of the exam: Limited secondary to profound dementia at baseline. no signs of meningeal irritation noted. PSYCHIATRIC: Limited but stable. Objective Labs 04/18/25 05:49 04/18/25 05:49 Labs: Laboratory Results - last 24 hr 04/18/25 04/18/25 04/18/25 05:49 15:15 16:19 WBC 5.9 RBC 4.18 L Hgb 12.7 L Hct 37.8 L MCV 90 MCH 30.4 MCHC 33.6 RDW Std Deviation 42.9 Plt Count 196 Neut % (Auto) 53 Lymph % (Auto) 27 [place] % (Auto) 11 Eos % (Auto) 3 Baso % (Auto) 2 Neut # (Auto) 3.1 Lymph # (Auto) 1.6 [place] # (Auto) 0.6 Eos # (Auto) 0.2 Baso # (Auto) 0.1 Immature Gran # (Auto) 0.33 H Absolute Nucleated RBC 0.03 H Immature Gran % 6 H Nucleated RBC % 1 H PT 12.0 INR 1.1 APTT 29.1 D Sodium 142 Potassium 3.8 Chloride 104 Carbon Dioxide 28.8 Anion Gap 9 BUN 8 L Creatinine 0.8 Estim Creat Clear Calc 82.5 eGFR > 60 BUN/Creatinine Ratio 10 L Glucose 90 Calculated Osmolality 281 Calcium 8.5 Corrected Calcium 9.1 Phosphorus 3.0 Magnesium 2.0 Total Bilirubin 0.4 0.3 Direct Bilirubin < 0.1 AST 192 H 197 H ALT 182 H 226 H Alkaline Phosphatase 126 H 141 H Lactate Dehydrogenase 405 H Total Creatine Kinase 55 Total Protein 5.5 L 5.2 L Albumin 3.3 L 3.3 L Globulin 2.2 L Albumin/Globulin Ratio 1.5 Hepatitis A IgM Ab Hep Bs Antigen Hep B Core IgM Ab Hepatitis C Antibody 04/18/25 16:55 WBC RBC Hgb Hct MCV MCH MCHC RDW Std Deviation Plt Count Neut % (Auto) Lymph % (Auto) [place] % (Auto) Eos % (Auto) Baso % (Auto) Neut # (Auto) Lymph # (Auto) [place] # (Auto) Eos # (Auto) Baso # (Auto) Immature Gran # (Auto) Absolute Nucleated RBC Immature Gran % Nucleated RBC % PT INR APTT Sodium Potassium Chloride Carbon Dioxide Anion Gap BUN Creatinine Estim Creat Clear Calc eGFR BUN/Creatinine Ratio Glucose Calculated Osmolality Calcium Corrected Calcium Phosphorus Magnesium Total Bilirubin Direct Bilirubin AST ALT Alkaline Phosphatase Lactate Dehydrogenase Total Creatine Kinase Total Protein Albumin Globulin Albumin/Globulin Ratio Hepatitis A IgM Ab Non Reactive Hep Bs Antigen Non Reactive Hep B Core IgM Ab Non Reactive Hepatitis C Antibody Non Reactive ABG Interpretation ABG results: 04/14/25 04:25 ABG pH 7.35 ABG pCO2 38 ABG pO2 94 ABG HCO3 21 ABG O2 Saturation 98 ABG Base Excess -4 L Assessment & Plan Assessment and plan (1) Dementia: Status: Chronic (2) Pulmonary embolism: Status: Acute
[2025-04-19] VITALS (7 sets, daily range): BP systolic 124–148; BP diastolic 70–92; PULSE 22–92; RESP 16–21; TEMP 36.1–36.7; O2SAT 94–97; BMI 30.6
[2025-04-19 05:42] LABS: Basophils # (Auto) 0.1 Thou/mm3 (0.0-0.2); Basophils % (Auto) 2 % (0-2.5); Eosinophils # (Auto) 0.2 Thou/mm3 (0.0-0.5); Eosinophils % (Auto) 3 % (0-10); Hematocrit 36.2 % (41.0-53.0); Hemoglobin 12.2 g/dL (13.5-16.0); Immature Granulocytes Auto 0.38 Thou/mm3 (0.00-0.00); Lymphocytes # (Auto) 1.7 Thou/mm3 (1.0-4.8); Lymphocytes % (Auto) 27 % (10-50); Mean Corpuscular HGB Conc 33.7 g/dl (31.0-37.0); Mean Corpuscular Hemoglobin 30.4 pg (25.0-35.0); Mean Corpuscular Volume 90 fL (80-100); Monocytes # (Auto) 0.7 Thou/mm3 (0.0-0.8); Monocytes % (Auto) 11 % (0-12); Neutrophils # (Auto) 3.2 Thou/mm3 (1.8-7.7); Neutrophils % (Auto) 51 % (37-80); Nucleated Red Blood Cell # 0.00 Thou/mm3 (0.00-0.00); Nucleated Red Blood Cell % 0 /100 WBC (0); Platelet Count 192 Thou/mm3 (140-440); RDW Standard Deviation 43.5 fL (35.1-43.9); Red Blood Count 4.01 Miln/mm3 (4.50-5.90); White Blood Count 6.2 Thou/mm3 (3.8-10.6)
[2025-04-19 05:55] LABS: Alanine Aminotransferase 185 U/L (10-49); Albumin, Serum 3.2 gm/dL (3.4-4.8); Albumin/Globulin Ratio 1.8 (1.2-2.2); Alkaline Phosphatase 127 U/L (46-116); Anion Gap 9 (7-16); Aspartate Amino Transferase 123 U/L (0-34); BUN/Creatinine Ratio 14 Ratio (12-20); Bilirubin,Total 0.3 mg/dL (0.3-1.2); Blood Urea Nitrogen 11 mg/dL (9-23); Calcium 8.7 mg/dL (8.3-10.6); Calcium (Corrected) 9.3 mg/dL (8.5-10.1); Carbon Dioxide 27.6 mMol/L (20.0-31.0); Chloride 107 mMol/L (98-107); Creatinine (Component) 0.8 mg/dL (0.6-1.3); Estimated Creatinine Clearance 82.5 mL/min (>60); Globulin 1.8 gm/dL (2.3-3.5); Glucose 88 mg/dL (74-106); Magnesium 1.9 mg/dL (1.6-2.6); Osmolality,Calculated 285 (275-295); Phosphorous 4.3 mg/dL (2.4-5.1); Potassium 3.8 mMol/L (3.4-5.1); Sodium 144 mMol/L (136-145); Total Protein 5.0 gm/dL (5.7-8.2); eGFR > 60 See Note
[2025-04-19] MEDS: DONEPEZIL HCL 5 MG TABLET 10 MG PO (08:37)
[2025-04-19] MEDS: TAMSULOSIN HCL 0.4 MG CAPSULE PO (08:37)
[2025-04-19] MEDS: APIXABAN 2.5 MG TABLET 10 MG PO (08:37)
[2025-04-19] MEDS: MEMANTINE HCL 5 MG TABLET 10 MG PO (08:38)
--- NOTE | 2025-04-19 09:23 | ESPR_ITS ---
RE: PETAR APARICIO : 1955 DATE OF SERVICE: 04/19/2025 Cardiology followup. SUBJECTIVE: The patient is a 69-year-old male admitted to the hospital with pulmonary embolism, left lower lobe emboli. The patient has severe dementia, baseline status, pacemaker implantation and multiple medical problems. He has had some altered mental status, but the patient did not have a stroke, but the patient is much more alert and awake today, though he is still disoriented, but much more alert and awake, not lethargic anymore. He has switched heparin to Eliquis, tolerating 10 mg twice daily dose quite well so far, not offering any complaints. No shortness of breath. Saturation is good on room air, 90% plus saturation on room air. The patient did have a significant problem with liver function tests. LFTs are abnormal, thought to be due to cholelithiasis or probably statin. Statin has been held, probably not necessary, can be discontinued. Whereas the patient does have cholelithiasis, but no symptoms. Clinically, he is not having abdominal pain and right upper quadrant pain. OBJECTIVE: General: Vital signs are stable. He is alert, awake, and confused. Vital Signs: Blood pressure 130/80, pulse 80, respirations 20, 97% room air. Head: Atraumatic. Neck: Supple. Lungs: Decreased breath sounds. No rales. Heart: S1 and S2 regular. No gallops. Abdomen: Thin and soft. Extremities: No edema. LABORATORY DATA: His lab data showed evidence of abnormal LFTs, persistent elevated transaminases, 197 AST and 226 ALT, alkaline phosphatase slightly elevated. CBC is normal. IMPRESSION: 1. Pulmonary thromboembolism. 2. Deep vein thrombosis of the right lower extremity femoral thrombosis. 3. Dementia. 4. Elevated transaminases. 5. Cholelithiasis. RECOMMENDATIONS: 1. Discontinue statin for now because of elevated LFTs. Cholelithiasis is asymptomatic for now, but if he has any symptoms, may consider cholecystectomy, but not at this time. 2. The patient should be continued on anticoagulation with Eliquis. 3. If he does require surgery, I would wait 3 months at least before recommending any type of surgery. DT: 09:04:02 TT: 09:22:00 Ref: [id number] - TID: [id number]
--- NOTE | 2025-04-19 09:36 | PC.SS ---
Update: Plan is to d/c patient to SNF today.
[2025-04-19] MEDS: BALSAM PERU/CASTOR OIL (Venelex) 60 GM TUBE TOP (10:35)
--- NOTE | 2025-04-19 13:26 | PD.ADDDSCHGE ---
Addendum Discharge Addendum Date of report being addended: 04/19/25 Narrative: Face to face evaluation was performed by me. I have personally seen and examined the patient. I discussed the assessment and plan with the entire medicine team. I reviewed available medical records, imaging studies, laboratory results. I agree with the above subjective data, objective findings, assessment and plan except as corrected by me or noted below Elevated liver enzymes suspected to be due to medication induced plan liver injury?atorvastatin Acute VTE on Eliquis for anticoagulation /Hypertension Hiccups BPH -Patient's liver function tests improved, this was likely atorvastatin induced mild liver injury continue to hold statin clinically does not look like he had a stroke so we will avoid statin in his case Use gabapentin as needed for hiccups can also use Thorazine as needed daily More than > 30 minutes spent on the encounter
--- NOTE | 2025-04-19 13:42 | PC.SS ---
[facility] reference #[id number]. [place] transport requested. Awaiting response.
--- NOTE | 2025-04-19 13:53 | ESDS_ITS ---
Planned Discharge Date 04/19/25 DS: Providers Provider Date of admission: 04/14/25 05:15 Primary care physician: Physician No Primary/Family Admitting Provider: Axel Logan MD Attending Provider on Admission: Nicanor Rodriguez MD Consults: 04/14/25 06:55 Consult to Cardiology Routine Comment: Consulting Provider: Julissa Forde 04/14/25 11:19 Referral Occupational Therapy Routine Comment: Referral Registered Dietitian Routine Comment: 04/14/25 20:16 Consult to Neurology / Tele-Neurology Stat Comment: Consulting Provider: [employer] 04/14/25 21:36 Referral Speech Therapy Routine Comment: difficulty chewing food per family x1 week 04/15/25 10:28 Consult to Neurology / Tele-Neurology Routine Comment: Alzheimer's disease, agitation, maybe szs? Consulting Provider: Rohan Santa 04/16/25 08:07 Referral Physical Therapy Stat Comment: Physician Instructions: 04/18/25 13:32 Referral Nutritional Services Routine Comment: suspected deep tissue injury to right heel 04/18/25 13:33 Referral Wound Care Routine Comment: suspected deep tissue injury to right heel Attending Provider on DC: Nicanor Rodriguez MD Discharging Provider: RESIDENT Malka Anticipated date of discharge: 04/19/25 DS: Diagnosis Problem List Completed Was Problem List Reviewed/Reconciled?: Yes Hospital Course Hospital Course Hospital course: Reason for hospitalization: Septic shock Summary: This patient is a 69 year old male with a history of BPH, HTN, sick sinus syndrome s/p pacemaker, and Alzheimer's disease who presented to [facility] ED on 04/13 for shortness of breath, generalized weakness, cough, and hiccups for the past 3 days. The patient was admitted to ICU for suspicion of septic shock secondary to pneumonia, however was downgraded to medical floors on 04/14 as patient did not require any pressors. The patient is largely immobile due to progressively worsening mental status over the last 6 months, so venous Doppler ultrasound of the lower extremities were performed in the ED to assess for DVT, and an occlusive thrombus extending from the right superficial femoral vein to the peroneal vein was found. CT angiogram was followed quickly after, which revealed pulmonary emboli in the subsegmental branches of the left lower lobe of the pulmonary artery and bilateral lower lobe pneumonia. The patient received a total of 3 L normal saline for MAP below 65, however MAP remained below 65. Patient was then started on Levophed and admitted to the ICU, however patient's blood pressure stabilized quickly and Levophed was discontinued. IV heparin was started for the PE, and ceftriaxone azithromycin was started for the pneumonia, all of which were continued on the medical floor. Cardiology was consulted for management of PE, and they recommended to continue the heparin drip with plans to convert to Eliquis 10 mg twice daily for 7 days, and then adjusting to Eliquis 5 mg twice daily for 6 months, followed by Eliquis 2.5 mg twice daily indefinitely as the patient is expected to be bedbound indefinitely. Echocardiogram was done on 04/14, which showed normal left ventricular size and function with EF 60 to 65% and grade 1 diastolic dysfunction. In the evening of 04/14, a rapid response, which was upgraded to code stroke, was called for strokelike symptoms and new left facial droop noted by the nurse and daughter at bedside. Teleneurology was consulted, however upon examination, no focal deficits were noted. Heparin drip was momentarily paused until CT head and CTA head/neck were negative for acute pathology, at which point heparin drip was resumed. MRI with MRA brain showed prominent microvascular white matter changes but was negative for acute processes. In-house neurology was consulted and did not recommend further workup, but did recommend medication changes for management of Alzheimer's disease and difficulty sleeping at night as reflected on discharge recommendations. On 04/15, Crow catheter was moved, and patient did not appear to retain urine. On 04/17, the patient had an increase in AST and ALT compared to 5 AM labs. Repeat LFTs later in the afternoon showed doubling of the AST and ALT, which prompted examination with abdominal ultrasound, which showed cholelithiasis without cholecystitis and a 14 cm sized fatty liver. At this point, the patient's atorvastatin, which was started after the code stroke, was held due to concerns for it being the source of the transaminitis. The patient was kept for close monitoring, and investigation int o viral hepatitis resulted as negative. On 04/19, LFTs decreased compared to the day before, so patient was medically cleared to be discharged given stable vitals and stable labs. Patient was advised to not take atorvastatin as that was thought to be the cause of the transaminitis and told to repeat CMP within 1 week of discharge to follow-up on liver functions. It is to be noted that gabapentin was added onto the patient's regimen as it appeared to significantly help with the hiccups. Discharge Recommendations: - Follow up with PCP within 1 week of discharge - Continue rest of medications as previously prescribed - Return to the ED or call EMS if symptoms return and/or worsen - Recommended to repeat CMP [lab] within 1 week of discharge to follow-up on liver functions - Recommended to take Eliquis 10 mg twice daily till 04/22/2025, followed by Eliquis 5 mg twice daily for 6 months followed by Eliquis 2.5 mg twice daily for rest of the life - Recommended to take gabapentin 200 mg as needed for the hiccups - Recommended to take Seroquel 100 mg [ Quetiapine] at bedtime daily - Recommend to continue donepezil 10 mg daily, famotidine 20 mg twice daily, lisinopril 10 mg daily, loratadine 10 mg daily, memantine 10 mg twice daily, tamsulosin 0.4 mg once daily - Recommended to stop Benadryl, citalopram, prednisone, Seroquel 50 mg twice daily - Stage 2 to right heel: swab with betadine and cover with foam dressing daily. Negative heel pressure bilaterally at all times If you don't have a PCP, you can make an appointment at the [facility]: [address] [place] [address] Hospital Diagnoses: #Left lower lobe pulmonary embolism #Provoked pulmonary embolism #Right lower extremity DVT #Transaminitis #Fatty liver disease #Cholelithiasis, without cholecystitis #Community-acquired pneumonia #Lactic acidosis, resolved #Septic shock, resolved #Acute CVA ruled out #Hiccups, recurrent #History of coccidiomycosis infection #Alzheimer's disease #?Parkinson's disease #Normocytic anemia #BPH Patient plan of care was discussed with attending physician Dr. Michael Lemons, PGY-1 Status at Discharge Overall status at discharge: patient is back to baseline Time Spent with Patient Time attestation: Total time spent providing and/or coordinating discharge services: Time spent: Greater than 30 minutes Exam Vital Signs Temp Pulse Resp BP Pulse Ox O2 Del Method O2 Flow Rate 97 F 92 20 131/91 H 94 L Room Air 2 04/19/25 12:13 04/19/25 12:13 04/19/25 12:13 04/19/25 12:13 04/19/25 12:13 04/19/25 12:13 04/14/25 20:36 FiO2 3 04/14/25 14:01 Narrative Exam Physical Exam: General: Alert, no acute distress. Skin: Warm, dry, intact. Head: Normocephalic, atraumatic. Eye: Normal conjunctiva, PERRL. Throat: Oral mucosa moist. No obvious lesions in oropharynx. Cardiovascular: Regular rate and rhythm, no murmur, +S1/S2. Respiratory: Lungs are clear to auscultation, respirations unlabored, no crackles, no wheezing. Gastrointestinal: Soft, nontender, non-distended. No guarding or rebound te nderness. Extremities: No edema, no cyanosis, no clubbing. 2+ radial pulse bilaterally, 2+ pedal pulse bilaterally. Neuro: No focal deficits observed. Conversant, moving all extremities. No overt cerebellar signs/incoordination. Psychiatric: Cooperative, appropriate affect. Discharge Plan Plan Patient Disposition: Xfer Skilled [facility] ([facility]NF) Patient condition on transfer: Stable Care Plan Goals: - Follow-up with PCP within 1 week of discharge. If you do not have appointment, please follow-up with the [facility] with Dr. Keith. Call [phone] to make an appointment. - Recommended to repeat CMP [lab] within 1 week of discharge to follow-up on liver functions - Recommended to take Eliquis 10 mg twice daily till 04/22/2025, followed by Eliquis 5 mg twice daily for 6 months followed by Eliquis 2.5 mg twice daily for rest of the life - Recommended to take gabapentin 200 mg as needed for the hiccups - Recommended to take Seroquel 100 mg [ Quetiapine] at bedtime daily - Recommend to continue donepezil 10 mg daily, famotidine 20 mg twice daily, lisinopril 10 mg daily, loratadine 10 mg daily, memantine 10 mg twice daily, tamsulosin 0.4 mg once daily - Recommended to stop Benadryl, citalopram, prednisone, Seroquel 50 mg twice daily -Stage 2 to right heel: swab with betadine and cover with foam dressing daily. Neagative heel pressure bilaterally at all times -Return to ED if symptoms persist or return Prescriptions/Referrals Prescriptions/Med Rec: New apixaban 5 mg tablet 10 mg PO BID 5 Days Qty: 20 0RF Rx Instructions: To complete regimen on 04/22/2025 quetiapine 25 mg Tablet 100 mg PO HS Qty: 30 0RF senna 8.6 mg capsule 8.6 mg PO QDAY PRN (Reason: constipation) Qty: 30 0RF gabapentin 100 mg capsule 100 mg PO BID PRN (Reason: hiccups) Qty: 30 0RF Rx Instructions: Take Gabapentin 200mg as needed for Hiccups Eliquis 5 mg tablet 5 mg PO BID Qty: 30 0RF Continued donepezil 10 mg tablet 10 mg PO QDAY famotidine [Pepcid] 20 mg tablet 20 mg PO BID loratadine 10 mg tablet 10 mg PO Q24H tamsulosin [Flomax] 0.4 mg capsule 0.4 mg PO QDAY lisinopril 10 mg tablet 10 mg PO QDAY memantine 10 mg tablet 10 mg PO BID Discontinued prednisone 20 mg tablet 20 mg PO QDAY Rx Instructions: days 11-21 of therapy levofloxacin 500 mg tablet 500 mg PO Q24H baclofen 10 mg tablet 10 mg PO Q8H benadryl 25 mg PO .QHS Rx Instructions: QHS for Insomnia Seroquel 50 mg PO BID Rx Instructions: x1 tab in am and x3 tabs pm escitalopram oxalate 20 mg tablet 20 mg PO QDAY Referrals: No Primary/Family,Physician [Primary Care Provider] Outpatient Orders (i.e. Home Health, Labs, Imaging): Comprehensive Metabolic Panel (Routine) Timeframe: 1 Week Location: Determined by Patient Ordered By: Erik Keith Patient/Caregiver Discharge Instructions Education Materials: DVT Complications, Caring for End-Stage Dementia, Dementia Caregiver Tips, Dementia Communicate Patients Print Language: Malay Stand Alone Forms: Deborah Award Info., Patient Portal Info Letter Discharge Order Discharge Orders: Discharge (Routine); Ordered 04/19/25 Ordered By: Erik Keith Quality Discharge Quality Measures VTE prophylaxis
--- NOTE | 2025-04-19 14:43 | PC.SS ---
Ambulance transport scheduled for 5:00 pm today. [employer] ARCHITECT notified bedside nurse, patient's daughter and SNF. [facility] to provide transportation.
--- NOTE | 2025-04-19 17:10 | PD.RESPRO ---
Documentation for date of: 04/19/25 Subjective Subjective Interval history: 04/19/2025: Patient was seen and examined at the bedside. Patient had no acute symptoms. Patient's family at the bedside reported the patient is doing well and was informed by the primary team that liver enzymes have improved and patient can be safely discharged. It was recommended to continue patient's Alzheimer medication including memantine and donepezil. Patient can be safely discharged today from neurology standpoint. Exam Vital Signs Temp Pulse Resp BP Pulse Ox O2 Del Method O2 Flow Rate 97 F 71 20 131/91 H 94 L Room Air 2 04/19/25 12:13 04/19/25 16:00 04/19/25 12:13 04/19/25 12:13 04/19/25 12:13 04/19/25 12:13 04/14/25 20:36 FiO2 3 04/14/25 14:01 Narrative Exam GENERAL APPEARANCE: Patient has advanced dementia and slow to response. No acute distress HEENT: NC, AT. MMM. EOMI, clear conjunctiva, oropharynx clear. NECK: Supple without lymphadenopathy. No stiffness or restricted ROM. HEART: Normal rate and regular rhythm, normal S1/S2, no m/r/g LUNGS: CTAB, moving air well. No crackles or wheezes are heard. ABDOMEN: Soft, nontender, nondistended with good bowel sounds heard. BACK: No CVAT, no obvious deformity. EXTREMITIES: Without cyanosis, clubbing or edema. NEURO: Alert, awake. Moves all 4 extremities purposefully but not on commands. Rest of the exam: Limited secondary to profound dementia at baseline. no signs of meningeal irritation noted. PSYCHIATRIC: Limited but stable. Skin: Warm and dry without any rash. Objective Labs 04/19/25 04:08 04/19/25 04:08 Labs: Laboratory Results - last 24 hr 04/18/25 04/19/25 16:55 04:08 WBC 6.2 RBC 4.01 L Hgb 12.2 L Hct 36.2 L MCV 90 MCH 30.4 MCHC 33.7 RDW Std Deviation 43.5 Plt Count 192 Neut % (Auto) 51 Lymph % (Auto) 27 [place] % (Auto) 11 Eos % (Auto) 3 Baso % (Auto) 2 Neut # (Auto) 3.2 Lymph # (Auto) 1.7 [place] # (Auto) 0.7 Eos # (Auto) 0.2 Baso # (Auto) 0.1 Immature Gran # (Auto) 0.38 H Absolute Nucleated RBC 0.00 Immature Gran % 6 H Nucleated RBC % 0 Sodium 144 Potassium 3.8 Chloride 107 Carbon Dioxide 27.6 Anion Gap 9 BUN 11 Creatinine 0.8 Estim Creat Clear Calc 82.5 eGFR > 60 BUN/Creatinine Ratio 14 Glucose 88 Calculated Osmolality 285 Calcium 8.7 Corrected Calcium 9.3 Phosphorus 4.3 Magnesium 1.9 Total Bilirubin 0.3 AST 123 H ALT 185 H Alkaline Phosphatase 127 H Total Protein 5.0 L Albumin 3.2 L Globulin 1.8 L Albumin/Globulin Ratio 1.8 Hepatitis A IgM Ab Non Reactive Hep Bs Antigen Non Reactive Hep B Core IgM Ab Non Reactive Hepatitis C Antibody Non Reactive ABG Interpretation ABG results: 04/14/25 04:25 ABG pH 7.35 ABG pCO2 38 ABG pO2 94 ABG HCO3 21 ABG O2 Saturation 98 ABG Base Excess -4 L Quality Measures Quality Measures VTE therapy (Eliquis 10 mg twice daily) Advance care planning discussed with:: other Assessment & Plan Assessment Current Active Medications: Generic Name Dose Route Start Last Admin Trade Name Freq PRN Reason Stop Dose Admin Apixaban 10 mg 04/16/25 21:00 04/19/25 08:37 Apixaban 2.5 Mg Tablet PO 04/22/25 21:01 10 mg BID ARIANA Administration Atorvastatin Calcium 40 mg 04/15/25 21:00 04/16/25 21:33 Atorvastatin Calcium 20 Mg Tablet PO 05/15/25 20:59 40 mg On Hold: 04/17/25 08:00 HS ARIANA Administration Balsam Mayi/[place] Oil 0 gm 04/18/25 21:00 04/18/25 20:39 Balsam Mayi/[place] Oil (Venelex) 60 Gm Tube TOP 05/18/25 20:59 1 applicatio BID ARIANA Administration Chlorpromazine HCl 25 mg 04/17/25 11:27 Chlorpromazine 25 Mg Tablet PO 04/20/25 11:26 X1 PRN hiccups Protocol Donepezil HCl 10 mg 04/15/25 09:00 04/19/25 08:37 Donepezil Hcl 5 Mg Tablet PO 05/15/25 08:59 10 mg QDAY ARIANA Administration Gabapentin 200 mg 04/17/25 11:29 04/18/25 00:40 Gabapentin 100 Mg Capsule PO 05/17/25 11:29 200 mg BID PRN Administration hiccups Protocol Memantine 10 mg 04/14/25 21:00 04/19/25 08:38 Memantine Hcl 5 Mg Tablet PO 05/14/25 20:59 10 mg BID ARIANA Administration Ondansetron HCl 4 mg 04/14/25 05:15 Ondansetron Inj 2 Mg/Ml Inj 2 Ml IVP 05/14/25 05:14 On Hold: 04/14/25 18:25 Q6H PRN NAUSEA OR VOMITING Protocol Quetiapine Fumarate 100 mg 04/17/25 21:00 04/18/25 20:38 Quetiapine Fumarate 25 Mg Tablet PO 05/17/25 20:59 100 mg HS ARIANA Administration Sennosides 1 tab 04/14/25 18:30 04/19/25 08:37 Senna Tablet PO 05/14/25 18:29 1 tab QDAY ARIANA Administration Protocol Tamsulosin HCl 0.4 mg 04/15/25 09:00 04/19/25 08:37 Tamsulosin Hcl 0.4 Mg Capsule PO 05/15/25 08:59 0.4 mg QDAY ARIANA Administration Plan This is a 69-year-old male with past medical history of hypertension, sick sinus syndrome status post dual-chamber pacemaker, BPH, history of valley fever, and advanced Alzheimer's disease who was brought to the ED due to generalized weakness, cough, shortness of breath 3 days prior to admission. Patient was admitted to the ICU for septic shock secondary to pneumonia. Cardiology consulted for Pulmonary embolism and DVT. Stroke was ruled out. #History of Alzheimer disease - c/o Hiccups initially now resolved Plan: Recommended to continue donepezil and memantine Continue with Thorazine/gabapentin for hiccups Continue Seroquel 50 mg at night Continue baclofen every 8 hourly as needed #Acute CVA, ruled out NIHSS score of 4 Baseline of Parkinson's Left-sided facial droop and speech difficulty for symptoms during stroke alert Resuming heparin drip after head CT was negative as this is for pulmonary embolus Brain MRI shows negative for acute hemorrhage, mass effect or midline shift, however prominent microvascular white matter change that could be from dementia Plan: Since liver enzymes improved, continue Lipitor 40 mg Hep panel was negative Continue Eliquis for PE Patient can be safely discharged from neurology standpoint #Pulmonary embolism #Right lower extremity DVT #Sick sinus syndrome s/p dual chamber pacemaker placement #Community-acquired PNA #Lactic Acidosis #Septic shock-resolved #History of Coccidiomycosis infection #Alzheimer's Dementia #Parkinsons' disease? #Normocytic Anemia Rest of the problems as per primary care team. Patient was seen and discussed with neurologist, Dr Kiet Avery MD, PGY 3 Attending Provider Attestation/Addendum I did the virtual review of the chart and I agreed with resident's findings, assessment and plan of care. Imp: Advanced dementia, totally dependent for all his ADLs PE on anticoagulant Hiccough: resolving PLAN AND RECS: Continue cognition enhancers and Quetiapine at night. stable for DC to assisted.
--- NOTE | 2025-04-23 09:41 | PC.SS ---
SS has contacted Maira from patient registration to update patient's facesheet with his dtr, Nydia Mcfadden's correct phone# [phone] ([phone] is not correct). SS spoke to dtr, Nydia, phone# [phone] and discussed SNF options. Nydia explained pt is from [facility] but she is now requesting a different SNF. Nydia's choice is for pt to go to [facility]. SS spoke to Tia at [facility] who states she will follow up in her morning meeting if they will accept pt due to pt being prescribed Seroquel by PCP.
== END 2025-04-19 18:15 | disposition skilled nursing facility (03) | DRG 871 ==
LOC: SERX 04-14 04:52 → SERHOLD 04-14 06:12 → S2NX 04-15 05:55 → S2SX 04-15 05:55
PROVIDERS: Internal Medicine; Internal Medicine Critical Care Medicine; Student in an Organized Health Care Education/Training Program; Admitting Provider Student in an Organized Health Care Education/Training Program; Emergency Provider Emergency Medicine; Visit Provider Internal Medicine
DX: A41.9 Sepsis, unspecified organism (principal); I26.94 Multiple subsegmental thrombotic pulmonary emboli without acute cor pulmonale; J18.9 Pneumonia, unspecified organism; R65.21 Severe sepsis with septic shock; I26.99 Other pulmonary embolism without acute cor pulmonale; I82.411 Acute embolism and thrombosis of right femoral vein; I82.401 Acute embolism and thrombosis of unspecified deep veins of right lower extremity; E87.20 Acidosis, unspecified; N17.9 Acute kidney failure, unspecified; R06.6 Hiccough; G30.9 Alzheimer's disease, unspecified; G20.A1 Parkinson's disease without dyskinesia, without mention of fluctuations; F02.80 Dementia in other diseases classified elsewhere, unspecified severity, without behavioral disturbance, psychotic disturbance, mood disturbance, and anxiety; I10 Essential (primary) hypertension; N40.0 Benign prostatic hyperplasia without lower urinary tract symptoms; K44.9 Diaphragmatic hernia without obstruction or gangrene; K80.20 Calculus of gallbladder without cholecystitis without obstruction; R29.810 Facial weakness; Z74.01 Bed confinement status; R29.6 Repeated falls; Z79.01 Long term (current) use of anticoagulants; R56.9 Unspecified convulsions; Z95.0 Presence of cardiac pacemaker; Z79.899 Other long term (current) drug therapy
CPT/HCPCS: 36415; 36600; 70450; 70496; 70498; 70544; 71045; 71275; 74018; 76705; 80053; 80061; 80069; 80074; 80076; 81001; 82248; 82550; 82728; 82803; 83540; 83550; 83605; 83615; 83735; 83880; 84100; 84145; 84443; 84484; 85025; 85046; 85379; 85610; 85652; 85730; 86140; 87040; 87081; 87205; 87400; 87811; 92526; 92610; 93005; 93306; 93970; 94640; 96361; 96365; 96366; 96375; 97162; 99285; A4649; A9270; J0456; J0692; J0696; J1644; J2470; J2765; J2919; J3360; J3373; J3475; J3490; J7030; J7050; J7120; J7999; Q0161; Q9967

== ENCOUNTER 2025-04-21 06:06 | Inpatient (IN) | payer MEDICARE, MEDICAID, SELFPAY ==
[2025-04-21] VITALS (8 sets, daily range): BP systolic 116–156; BP diastolic 71–122; PULSE 60–115; RESP 17–30; TEMP 36.3–38.7; O2SAT 94–100; BMI 27.8; BMI 31.3
--- NOTE | 2025-04-21 06:28 | XR_ITS ---
Examination: AP chest single view Technique one AP portable upright chest single view Date and time: April 21, 20122024, 0704 hrs., Comparison 04/14/2025 Indications: Fever sepsis today Findings: Mild prominence left ventricle Transvenous dual-chamber bipolar cardiac leads satisfactory position. No pneumonia or pulmonary edema. Prominent osteopenia. Impression: No pneumonia or pulmonary edema
--- NOTE | 2025-04-21 06:28 | EKG_ITS ---
[facility] Test Date: 2025-04-21 Pat Name: PETAR APARICIO Department: Room: - Gender: Male Plant Manager: : [id number] Requested By: Adelso Dawkins Order Number: [id number] Reading MD: Adelso Dawkins Measurements Intervals [place] Rate: 101 P: 78 WV: 152 QRS: -16 QRSD: 82 T: 88 QT: 332 QTc: 432 Interpretive Statements SINUS TACHYCARDIA ABNORMAL RHYTHM ECG Compared to ECG 04/14/2025 21:05:50 Atrial-paced complex(es) or rhythm no longer present /store/S0/[id number].pdf
--- NOTE | 2025-04-21 06:37 | XR_ITS ---
Examination: CT abdomen with intravenous contrast CT pelvis with intravenous contrast 2-D coronal reconstructions 2-D sagittal reconstructions Date and time of exam: April 21 2025, 0825 hours INDICATIONS: Distended tense abdomen today CTDI: vol (mGy) 17.9 DLP: (mGycm) 1070 Technique: Multiple axial sections of the abdomen and pelvis have been obtained. 64 slice high-resolution scanner used. 3 mm axial sections have been obtained, post intravenous injection 60 cc [id number] 2-D sagittal, coronal reconstructions obtained. Low dose protocols were performed. One or more of the following dose reduction techniques were used; automated exposure control, adjustment of the mA and/or KV according to patient size, use of iterative reconstruction technique. Findings: Trace pericardial thickening. No focal liver lesions. Gallbladder wall appears thickened Spleen is not enlarged No pancreatic or adrenal mass No renal or ureteral calculi. Aorta normal size. Normal appendix. No bowel obstruction No diverticulitis Abundant stool in the rectum with mild thickening of the rectal wall Transverse prostate dimension 4.9 cm Urinary bladder contracted, wall thickening 4 mm Prominent osteopenia IMPRESSION: Recommend repeat hepatobiliary sonography to exclude thickening of the gallbladder wall Negative for pancreatitis No renal or ureteral calculi, no hydronephrosis No CT findings of appendicitis bowel obstruction or diverticulitis Moderate prostatomegaly, thickening of the urinary bladder wall up to 4 mm, consider early urinary tract outflow obstruction secondary to prostatomegaly, No bowel obstruction Abundant stool in the rectum with mild thickening the rectal wall, differential would include proctitis
--- NOTE | 2025-04-21 06:37 | PD.EDSOB ---
ED SOB =RME/HPI General Chief Complaint: Shortness of Breath/Dyspnea Stated Complaint: SOB Time Seen by Provider: 04/21/25 06:26 Arrival date/time: 04/21/25 06:06 RME / HPI RME / HPI Narrative: 69 year old male with history of Alzheimer's disease, dementia, sick sinus syndrome s/p pacemaker placement, hypertension, BPH, and recently admitted to the ICU (04/14/2025) for septic shock requiring pressor support and managment for PE and DVT presents to the ED BIBA from OR for evaluation of shortness of breath today. Per medics, OR staff reported patent appeared to have difficulty breathing and was saturating 86-87% on room air. Patient evidently at baseline is nonverbal and unable to provide any additional history. On arrival to ED, patient noted to be febrile 101.0F ND and a sepsis alert was activated. Related Data Home Medications ?Medication ?Instructions ?Recorded ?Confirmed donepezil 10 mg tablet 10 mg PO QDAY 04/14/25 04/14/25 famotidine 20 mg tablet (Pepcid) 20 mg PO BID 04/14/25 04/14/25 lisinopril 10 mg tablet 10 mg PO QDAY 04/14/25 04/14/25 loratadine 10 mg tablet 10 mg PO Q24H 04/14/25 04/14/25 memantine 10 mg tablet 10 mg PO BID 04/14/25 04/14/25 tamsulosin 0.4 mg capsule (Flomax) 0.4 mg PO QDAY 04/14/25 04/14/25 Previous Rx's ?Medication ?Instructions ?Recorded apixaban 5 mg tablet 10 mg (2 x 5 mg) PO BID 5 days #20 04/17/25 tabs apixaban 5 mg tablet (Eliquis) 5 mg PO BID #30 tabs 04/19/25 gabapentin 100 mg capsule 100 mg PO BID PRN hiccups #30 caps 04/19/25 quetiapine 25 mg tablet 100 mg (4 x 25 mg) PO HS #30 tabs 04/19/25 sennosides 8.6 mg capsule (senna) 8.6 mg PO QDAY PRN constipation 04/19/25 #30 caps Allergies Allergy/AdvReac Type Severity Reaction Status Date / Time No Known Allergies Allergy Verified 04/21/25 06:23 Review of Systems Review of Systems ROS Unobtainable: unobtainable due to medical condition Past Medical History Past Medical History NEUROLOGIC: Positive Neurological Disorders, Cerebrovascular Accident, Dementia and Alzheimer's Disease (per mother of patient had alzheimer's) CARDIAC: Positive Cardiac Disorders (PACEMAKER) RESPIRATORY: Positive Asthma GASTROINTESTINAL: Positive Gall Bladder Disease GENITOURINARY: Positive Benign Prostatic Hyperplasia PSYCHO/SOCIAL: Positive Depression OTHER HISTORY: Positive Shingles (2018) and Chicken Pox Family History FAMILY HISTORY: Positive Family Cardiac Disorders (FATHER (PACEMAKER)) Surgical History SURGICAL: Positive Pacemaker Social History SMOKING STATUS: Unknown if ever smoked SECOND HAND EXPOSURE: No SUBSTANCE USE: does not use ED Exam Narrative Physical exam: See MDM Course Quality Measures none Orders Category Date Time Status Bedside Blood Glucose NOW Care 04/21/25 06:28 Active Bedside COVID-19 Antigen Test NOW Care 04/21/25 06:37 Active Bedside Influenza A&B Antigen Test NOW Care 04/21/25 06:[address] Screening NOW Care 04/21/25 06:42 Active Rug Clipper now Care 04/21/25 06:28 Active Continuous Pulse Oximetry NOW Care 04/21/25 06:29 Completed In and Out Catheter X1 Care 04/21/25 06:51 Completed Insert IV NOW Care 04/21/25 06:28 Active Occult Blood,Stool (Nursing) NOW Care 04/21/25 09:48 Active Strict Intake and Output Routine Care 04/21/25 06:[address] abdomen pelvis w con Stat Exams 04/21/25 06:37 Completed XR chest 1V SEPSIS PROTOCOL Stat Exams 04/21/25 06:28 Completed BNP [B-Type Natriuretic Peptide] Stat Lab 04/21/25 06:28 Completed Blood Culture (Lab) Stat Lab 04/21/25 06:20 Received CBC Stat Lab 04/21/25 06:28 Completed Comprehensive Metabolic Panel Stat Lab 04/21/25 06:28 Completed Lactate (Lactic Acid) Stat Lab 04/21/25 06:28 Completed Lactic Acid, 3 HR Stat Lab 04/21/25 09:56 Completed Mag [Magnesium] Stat Lab 04/21/25 06:28 Completed Occult Blood, Stool (LAB) Stat Lab 04/21/25 09:49 Completed Partial Thromboplastin Time Stat Lab 04/21/25 06:28 Completed Procalcitonin Stat Lab 04/21/25 06:28 Completed Prothrombin Time with INR Stat Lab 04/21/25 06:28 Completed Troponin I Stat Lab 04/21/25 06:28 Completed Urinalysis Stat Lab 04/21/25 06:31 Completed Urine Culture Stat Lab 04/21/25 06:31 Received Acetaminophen Ivpb [Ofirmev Inj] Med 04/21/25 06:37 Discontinued 1,000 mg in 100 ml IV X1 Doxycycline Inj [Vibramycin Inj] 100 mg Med 04/21/25 06:29 Discontinued Sodium Chloride 0.9% (Pop) [NS 0.9% mini bag] 100 ml IV X1 Piper/Tazo 3.375 gm Premix [Zosyn] Med 04/21/25 06:30 Discontinued 3.375 gm in 50 ml IV X1 Sodium Chloride 0.9% 1000 ml [Ns] 1,000 ml Med 04/21/25 06:29 Discontinued IV 999 mls/hr EKG (RT) Stat RT 04/21/25 06:28 Draft Oxygen Delivery NOW RT 04/21/25 06:28 Active Vital Signs Vital signs: Vital Signs Temperature 101.6 F H 04/21/25 06:23 Pulse Rate 115 H 04/21/25 06:23 Respiratory Rate 30 H 04/21/25 06:23 Blood Pressure 145/122 H 04/21/25 06:23 Pulse Oximetry (%) 94 L 04/21/25 06:23 Oxygen Delivery Method Nasal Cannula 04/21/25 06:23 Oxygen Flow Rate 5 04/21/25 06:23 Shortness of Breath / Dyspnea MDM Narrative MDM Narrative:: This section includes all my notes and documentations, including HPI, PE, and ED course. Shashank Hart MD ? HPI: 69 year old male with history of Alzheimer disease, dementia, sick sinus syndrome s/p pacemaker placement, hypertension, BPH, and recently admitted to the ICU (04/14/2025) for septic shock requiring pressor support and managment for PE/DVT presents to the ED BIBA from OR for evaluation of shortness of breath today. Per medics, OR staff reported patent appeared to have difficulty breathing and was saturating 86-87% on room air. Patient evidently at baseline is nonverbal and unable to provide any additional history. On arrival to ED, patient noted to be febrile 101.0F ND and a sepsis alert was activated. ? ROS: All negative except as documented in HPI. ? PE: GENERAL APPEARANCE:? Patient doesn't follow commands, grimacing VITALS: All vitals were reviewed and the pulse ox is 94% on 2L nasal cannula. HEENT: Normocephalic, atraumatic; pupils equal, round, reactive to light; EOMI; mucous membranes pink, moist; oropharynx clear NECK: Supple LUNGS: CTABL; no wheezes, no rales, no rhonchi HEART: Regular rate, regular rhythm; normal S1, S2; no murmurs ABDOMEN: non distended; normal BS; tense, patient grimacing and appears to be tender while palpating all quadrants, no guarding; no masses, no organomegaly, no hernia?? EXTREMITIES:? atraumatic; no edema NEUROLOGIC: Patient doesn't follow commands, nonverbal at baseline SKIN: warm, dry, normal color; no rashes I reviewed EMS notes. I reviewed snf pmhx and medication list. Made aware by the RN that the patient had a bowel movement in the ED that appeared dark in color and is guaiac positive. I reviewed all diagnostic test results: My interpretation of the chest x-ray is nml diaphragmatic edge, sharp costophreic angles, nml cardiac silhouette, no infiltrates. My review of the abdomen/pelvis CT report is: No bowel obstruction, proctitis My interpretation of the EKG @ 06:29h sinus tachycardia, rate 101, normal axis, no ectopy, no acute ischemic changes. Blood tests and urine test: Leukocytosis at 19.2, PT/PTT within normal limits, lactic acid 2.4, urinalysis negative for infection. Covid/Influenza: Negative. ? At this point, diagnoses include: Severe sepsis, lactic acidosis, lower GI bleed, elevated transaminase levels ? Treatment here included: Tylenol, IV fluids, Zosyn, Doxycycline ? I spoke with hospitalist team B regarding admission. Patient data External records reviewed:: [facility] previous records, EMS form and Residential records Clinical information provided by:: EMS Social determinants that could affect healthcare access:: housing ([place] resident ) Patient has the following chronic illnesses:: Alzheimer disease, dementia, sick sinus syndrome s/p pacemaker placement, hypertension, BPH How is presenting disease/condition affected by chronic disease/condition?: exacerbated by Evaluation data The following diagnostics were reviewed and interpreted by me:: lab results, radiology exam(s) and EKG tracing(s) Lab and/or radiology exams considered but not ordered:: None Interpretation Summary: See [facility] Medications / Prescriptions Medications or Prescriptions considered but not ordered:: None Medication administrations:: Medication Administration History Discontinued Medications Sodium Chloride (Ns) 1,000 mls @ 999 mls/hr IV .Q1H1M ONE Stop: 04/21/25 07:29 Last Infusion: 04/21/25 07:22 Dose: Infused Documented By: Admin: 04/21/25 06:43 Dose: 999 mls/hr Documented By: BD Piperacillin/Tazobactam/Dextrose (Zosyn) 3.375 gm in 50 mls @ 100 mls/hr IV X1 ONE; Protocol Stop: 04/21/25 06:59 Last Infusion: 04/21/25 07:02 Dose: Infused Documented By: Admin: 04/21/25 06:54 Dose: 100 mls/hr Documented By: BD Doxycycline Hyclate 100 mg/ (Sodium Chloride) 100 mls @ 100 mls/hr IV X1 ONE Stop: 04/21/25 07:28 Last Infusion: 04/21/25 08:15 Dose: Infused Documented By: Admin: 04/21/25 07:14 Dose: 100 mls/hr Documented By: GM Acetaminophen (Ofirmev Inj) 1,000 mg in 100 mls @ 250 mls/hr IV X1 ONE Stop: 04/21/25 07:00 Last Infusion: 04/21/25 07:07 Dose: Infused Documented By: Admin: 04/21/25 06:42 Dose: 250 mls/hr Documented By: BD See [facility] Consultations Consultation(s) initiated? (list below): No Diagnosis Shortness of Breath Differential Diagnosis: acute exacerbation of chronic obstructive airways disease, congestive heart failure, community acquired pneumonia, asthma with exacerbation and pulmonary embolism Most likely diagnosis given after review of the tests above:: Severe sepsis Lactic acidosis Elevated transaminase Lower GI bleed Admission Indicated Admission indicated?: indicated Admission Request Was there a request for admission?: Yes Admission Attestation Admission request attestation: Discussed case with [] from Hospitalist service regarding admission. Discussed patients ED course, exam findings, labs, and radiology results. The Hospitalist [agrees,declines] to accept the patient for admission. Disposition Plan Disposition Plan: Admit Critical Care Time Critical Care Time Critical Care Time: Yes Total Critical Care Time (min.): 45 Attestation: The high probability of sudden, clinically significant deterioration in the patient's condition required the highest level of my preparedness to intervene urgently. The services I provided to this patient were to treat and/or prevent clinically significant deterioration. Services included the following: chart data review, reviewing nursing notes and/or old charts, documentation time, hospice care sales consultant collaboration regarding findings and treatment options, medication orders and management, direct patient care, vital sign assessments and ordering, interpreting and reviewing diagnostic studies and lab tests. Aggregate critical care time includes only time during which I was engaged in work directly related to the patient's care, as described above, whether at bedside or elsewhere in the Emergency Department. It did not include time spent performing other reported procedures or the services of residents, students, nurses or physician assistants. Discharge Plan Plan Patient Disposition: Admit Acute Care w/in Hospital Prescriptions/Referrals Prescriptions/Med Rec: No Action donepezil 10 mg tablet 10 mg PO QDAY famotidine [Pepcid] 20 mg tablet 20 mg PO BID loratadine 10 mg tablet 10 mg PO Q24H tamsulosin [Flomax] 0.4 mg capsule 0.4 mg PO QDAY lisinopril 10 mg tablet 10 mg PO QDAY memantine 10 mg tablet 10 mg PO BID apixaban 5 mg tablet 10 mg PO BID 5 Days Qty: 20 0RF Rx Instructions: To complete regimen on 04/22/2025 quetiapine 25 mg Tablet 100 mg PO HS Qty: 30 0RF senna 8.6 mg capsule 8.6 mg PO QDAY PRN (Reason: constipation) Qty: 30 0RF gabapentin 100 mg capsule 100 mg PO BID PRN (Reason: hiccups) Qty: 30 0RF Rx Instructions: Take Gabapentin 200mg as needed for Hiccups Eliquis 5 mg tablet 5 mg PO BID Qty: 30 0RF Referrals: Maria Esther Herrera FNP [Primary Care Provider] - In 1 week Problem List Clinical Impression: Severe sepsis, Lactic acidosis, Elevated transaminase level, Lower GI bleed Patient/Caregiver Discharge Instructions Print Language: Urdu Stand Alone Forms: Deborah Award Info., Patient Portal Info Letter
[2025-04-21 06:42] LABS: Collection Type, Urine Clean Catch
[2025-04-21 06:42] LABS: Lactate (Lactic Acid) 2.1 mMol/L (0.4-2.0)
[2025-04-21] MEDS: ACETAMINOPHEN IVPB 1,000 MG/100 ML VIAL 250 MG IV (06:42)
[2025-04-21] MEDS: SODIUM CHLORIDE 0.9% 1000 ML 1,000 ML 999 ML IV (06:43)
[2025-04-21 06:44] LABS: Basophils # (Auto) 0.1 Thou/mm3 (0.0-0.2); Basophils % (Auto) 0 % (0-2.5); Eosinophils # (Auto) 0.0 Thou/mm3 (0.0-0.5); Eosinophils % (Auto) 0 % (0-10); Hematocrit 43.4 % (41.0-53.0); Hemoglobin 14.7 g/dL (13.5-16.0); Immature Granulocytes Auto 0.18 Thou/mm3 (0.00-0.00); Lymphocytes # (Auto) 0.5 Thou/mm3 (1.0-4.8); Lymphocytes % (Auto) 3 % (10-50); Mean Corpuscular HGB Conc 33.9 g/dl (31.0-37.0); Mean Corpuscular Hemoglobin 30.8 pg (25.0-35.0); Mean Corpuscular Volume 91 fL (80-100); Monocytes # (Auto) 1.1 Thou/mm3 (0.0-0.8); Monocytes % (Auto) 6 % (0-12); Neutrophils # (Auto) 17.4 Thou/mm3 (1.8-7.7); Neutrophils % (Auto) 91 % (37-80); Nucleated Red Blood Cell # 0.00 Thou/mm3 (0.00-0.00); Nucleated Red Blood Cell % 0 /100 WBC (0); Platelet Count 259 Thou/mm3 (140-440); RDW Standard Deviation 44.2 fL (35.1-43.9); Red Blood Count 4.77 Miln/mm3 (4.50-5.90); White Blood Count 19.2 Thou/mm3 (3.8-10.6)
[2025-04-21] MEDS: PIPER/TAZO 3.375 GM PREMIX 3.375 GM/50 ML BAG IV (06:54)
[2025-04-21 06:56] LABS: Bilirubin,Urine Negative (Negative); Blood,Urine Negative (Negative); Clarity,Urine Clear (Clear/Hazy); Color,Urine Yellow (Lt Yel-Yel); Glucose, Urine Negative (Negative); Ketones,Urine 2+ (Negative); Leukocyte Esterase,Urine Negative (Negative); Nitrite,Urine Negative (Negative); PH,Urine 6.0 (5.0-7.0); Protein,Urine Negative (Neg - Trace); RBC,Urine 1 /hpf (0-3); Specific Gravity,Urine 1.022 (1.001-1.035); Squamous Epithelial Cell,Urine < 1 /hpf (0-5); Urobilinogen,Urine Negative mg/dL (0.0-1.0); WBC,Urine 1 /hpf (0-5)
[2025-04-21 07:03] LABS: INR 1.0 (0.9-1.3); Partial Thromboplastin Time 24.2 Seconds (22.0-36.0); Prothrombin Time 11.3 Seconds (9.0-12.2)
[2025-04-21 07:10] LABS: Alanine Aminotransferase 171 U/L (10-49); Albumin, Serum 4.2 gm/dL (3.4-4.8); Albumin/Globulin Ratio 1.6 (1.2-2.2); Alkaline Phosphatase 183 U/L (46-116); Anion Gap 9 (7-16); Aspartate Amino Transferase 69 U/L (0-34); B-Type Natriuretic Peptide 28 pg/mL (0-100); BUN/Creatinine Ratio 12 Ratio (12-20); Bilirubin,Total 0.6 mg/dL (0.3-1.2); Blood Urea Nitrogen 12 mg/dL (9-23); Calcium 9.4 mg/dL (8.3-10.6); Calcium (Corrected) 9.4 mg/dL (8.5-10.1); Carbon Dioxide 29.7 mMol/L (20.0-31.0); Chloride 104 mMol/L (98-107); Creatinine (Component) 1.0 mg/dL (0.6-1.3); Estimated Creatinine Clearance 73.5 mL/min (>60); Globulin 2.6 gm/dL (2.3-3.5); Glucose 119 mg/dL (74-106); Magnesium 1.9 mg/dL (1.6-2.6); Osmolality,Calculated 285 (275-295); Potassium 4.3 mMol/L (3.4-5.1); Procalcitonin 0.20 ng/ml (0.0-0.49); Sodium 143 mMol/L (136-145); Total Protein 6.8 gm/dL (5.7-8.2); Troponin I < 0.020 ng/mL (0.0-0.045); eGFR > 60 See Note
[2025-04-21] MEDS: DOXYCYCLINE INJ 100 MG in SODIUM CHLORIDE 0.9% (POP) 100 ML IV (07:14)
[2025-04-21 09:35] LABS: Reflex Lactate? Y
--- NOTE | 2025-04-21 09:45 | PC.NURSE ---
PT HAD A BM AT THIS TIME; STOOL COLOR BROWN AND BLACK WITH RED SPOTS. PT GIVEN PERINEAL CARE WITH WARM BATH CLOTHS. PT PLACED IN NEW BRIEFS; NEW CHUCKS PLACED UNDER PT. LINEN CHANGE PERFORMED WELL. DR. SHARMA MADE AWARE OF PT'S STOOL COLOR; ORDERS RECEIVED AT THIS TIME.
[2025-04-21 10:04] LABS: Lactic Acid, 3 HR 2.4 mMol/L (0.4-2.0)
[2025-04-21 10:06] LABS: OBS Developer Expiration Date 2026-09; OBS Developer Lot # 23003; OBS Performed By MADRG3; OBS QC OK? Yes; Occult Blood, Stool Positive (Negative)
--- NOTE | 2025-04-21 14:34 | PD.RESHP ---
Documentation for date of: 04/21/25 HPI History of Present Illness Chief complaint: SOB and cough History of present illness: Mr. Mcfadden is a 69-year-old male with a past medical history of Alzheimer's daily, dementia, sick sinus syndrome status post pacemaker placement, hypertension, BPH, and PE (on Eliquis) who presented from longterm to [facility] ED on 04/21 for shortness of breath and cough. Patient was admitted for management of sepsis. The patient was recently admitted to [facility] on 04/14 for septic shock secondary to pneumonia and was found to have pulmonary embolism, requiring ICU level care initially. The patient was appropriately treated with ceftriaxone and azithromycin, the patient had significant improvement of symptoms. Patient was started on Eliquis 10 mg twice daily until 04/23, which would then be transition to Eliquis 5 mg twice daily for his pulmonary embolism and DVT. The patient was discharged on 04/19 after LFTs stabilized, thought to be secondary to initiation of statin use due to acute stroke workup. According to family at bedside, the patient was doing well upon discharge and the day after, however it was noted that the patient seemed to be having difficulty breathing prior to seeking care at [facility] ED. Of note, family members at bedside stated that the patient desaturated to the low 80s while he was still in the nursing facility. While in the ED, patient was also noted to have spiked a fever, prompting sepsis alert, and patient was noted to have some dark stools with some red blood. Patient is noninteractive, which is baseline for the patient, and more sleepy compared to when he was recently discharged on 04/19. Patient is unable to answer any questions. Patient saturated 100% on room air and was breathing comfortably. ED course: Initial vitals were significant for BP 145/122, heart rate 115, respiratory rate 30, temperature 101.6 ?F, and O2 saturation 94% on 5 L nasal cannula. Initial labs were significant for WBC 19.2, lactic acid 2.1, AST 69, ALT 171, ALP 183 Repeat lactic acid 2.4 Sepsis alert called. Chest x-ray negative for pneumonia or pulmonary edema. CT abdomen/pelvis negative for acute findings, does show some gallbladder wall thickening, moderate prostamegaly, and abundant stool in the rectum with mild thickening of rectal wall. Patient received one-time dose of IV acetaminophen 1 g, 1 L NS, Zosyn 3.375 g, and doxycycline 100 mg. FOBT was performed, which was positive. Allergies (w/ Reactions): NKDA Patient brought from SNF, but was previously living with and completely dependent on her for his daily activities. Review of Systems Review of Systems ROS Unobtainable: unobtainable due to mental status Exam Vital Signs Temp Pulse Resp BP Pulse Ox O2 Del Method O2 Flow Rate 99.2 F 68 20 116/71 96 Nasal Cannula 4 04/21/25 09:47 04/21/25 09:47 04/21/25 09:47 04/21/25 09:47 04/21/25 09:47 04/21/25 09:47 04/21/25 09:47 Narrative Exam Physical Exam: General: Sleepy, no acute distress. Skin: Warm, dry, intact. Head: Normocephalic, atraumatic. Eye: Normal conjunctiva, PERRL. Throat: Oral mucosa moist. No obvious lesions in oropharynx. Cardiovascular: Regular rate and rhythm, no murmur, +S1/S2. Respiratory: Lungs are clear to auscultation, respirations unlabored, no crackles, no wheezing. Gastrointestinal: Soft, nontender, non-distended. No guarding or rebound tenderness. Extremities: No edema, no cyanosis, no clubbing. 2+ radial pulse bilaterally, 2+ pedal pulse bilaterally. Pain on palpation of lower legs bilaterally. Results: Labs 04/21/25 06:28 04/21/25 06:28 Labs: Short CBC 04/21/25 Range/Units 06:28 WBC 19.2 H D (3.8-10.6) Thou/mm3 Hgb 14.7 D (13.5-16.0) g/dL Hct 43.4 (41.0-53.0) % Plt Count 259 D (140-440) Thou/mm3 BMP 04/21/25 06:28 Sodium 143 Potassium 4.3 D Chloride 104 Carbon Dioxide 29.7 BUN 12 Creatinine 1.0 Glucose 119 H Calcium 9.4 Cardiac Enzymes 04/21/25 Range/Units 06:28 Troponin I < 0.020 (0.0-0.045) ng/mL Liver Function 04/21/25 Range/Units 06:28 Total Bilirubin 0.6 (0.3-1.2) mg/dL AST 69 H (0-34) U/L ALT 171 H (10-49) U/L Alkaline Phosphatase 183 H D (46-116) U/L Albumin 4.2 D (3.4-4.8) gm/dL Urine 04/21/25 Range/Units 06:31 Urine Color Yellow (Lt Yel-Yel) Urine Clarity Clear (Clear/Hazy) Urine pH 6.0 (5.0-7.0) Ur Specific [place] 1.022 (1.001-1.035) Urine Protein Negative (Neg - Trace) Urine Glucose (UA) Negative (Negative) Quality Measures Quality Measures VTE prophylaxis Advance care planning discussed with:: patient, spouse and child Medications Home Medications and Allergies Home Medications ?Medication ?Instructions ?Recorded ?Confirmed ?Type famotidine 20 mg tablet (Pepcid) 20 mg PO BID 04/14/25 04/21/25 History lisinopril 10 mg tablet 10 mg PO QDAY 04/14/25 04/21/25 History loratadine 10 mg tablet 10 mg PO Q24H 04/14/25 04/21/25 History memantine 10 mg tablet 10 mg PO BID 04/14/25 04/21/25 History tamsulosin 0.4 mg capsule (Flomax) 0.4 mg PO QDAY 04/14/25 04/21/25 History diphenhydramine HCl 25 mg capsule 25 mg PO QHSPRN sleep 04/21/25 04/21/25 History escitalopram oxalate 20 mg tablet 20 mg PO DAILY 04/21/25 04/21/25 History gabapentin 100 mg capsule 200 mg PO BID PRN hiccups 04/21/25 04/21/25 History quetiapine 150 mg tablet,extended 150 mg PO QPM 04/21/25 04/21/25 History release 24 hr (Seroquel XR) quetiapine 25 mg tablet 50 mg PO QAM 04/21/25 04/21/25 History Allergies Allergy/AdvReac Type Severity Reaction Status Date / Time No Known Allergies Allergy Verified 04/21/25 06:23 Visit Medications Acetaminophen (Acetaminophen 325 Mg Tablet) 650 mg PO Q6H PRN PRN Reason: PAIN SCALE 1-3 (mild Stop: 05/21/25 11:11 Donepezil HCl (Donepezil Hcl 5 Mg Tablet) 10 mg PO HS ARIANA Stop: 05/21/25 20:59 Famotidine (Famotidine 20 Mg Tablet) 20 mg PO BID ARIANA Stop: 05/21/25 20:59 Gabapentin (Gabapentin 100 Mg Capsule) 200 mg PO TID PRN PRN Reason: Hiccups Stop: 05/21/25 13:59 Lisinopril (Lisinopril 2.5 Mg Tablet) 10 mg PO QDAY ARIANA Stop: 05/22/25 08:59 Memantine (Memantine Hcl 5 Mg Tablet) 10 mg PO BID ARIANA Stop: 05/21/25 20:59 Quetiapine Fumarate (Quetiapine Fumarate 100 Mg Tablet) 100 mg PO HS ARIANA Stop: 05/21/25 20:59 Sennosides (Senna Tablet) 1 tab PO QDAY PRN; Protocol PRN Reason: constipation Stop: 05/21/25 11:11 Tamsulosin HCl (Tamsulosin Hcl 0.4 Mg Capsule) 0.4 mg PO QDAY ARIANA Stop: 05/22/25 08:59 Discontinued Medications Apixaban (Apixaban 2.5 Mg Tablet) 10 mg PO BID ARIANA Stop: 04/22/25 20:59 Sodium Chloride (Ns) 1,000 mls @ 999 mls/hr IV .Q1H1M ONE Stop: 04/21/25 07:29 Last Infusion: 04/21/25 07:22 Dose: Infused Piperacillin/Tazobactam/Dextrose (Zosyn) 3.375 gm in 50 mls @ 100 mls/hr IV X1 ONE; Protocol Stop: 04/21/25 06:59 Last Infusion: 04/21/25 07:02 Dose: Infused Doxycycline Hyclate 100 mg/ (Sodium Chloride) 100 mls @ 100 mls/hr IV X1 ONE Stop: 04/21/25 07:28 Last Infusion: 04/21/25 08:15 Dose: Infused Acetaminophen (Ofirmev Inj) 1,000 mg in 100 mls @ 250 mls/hr IV X1 ONE Stop: 04/21/25 07:00 Last Infusion: 04/21/25 07:07 Dose: Infused Assessment & Plan Plan Mr. Mcfadden is a 69-year-old male with a past medical history of Alzheimer's daily, dementia, sick sinus syndrome status post pacemaker placement, hypertension, BPH, and PE (takes Eliquis) who presented from longterm to [facility] ED on 04/21 for shortness of breath. Patient was admitted for management of sepsis. #Sepsis 2/2 #Aspiration pneumonia vs #Healthcare facility associated pneumonia #Lactic acidosis Patient comes from nursing facility due to shortness of breath and cough. Patient was noted to have O2 saturation in low 80s prior to being brought to [facility] ED. In ED, patient was noted to have heart rate 115, respiratory rate 30, temperature 101.6 ?F, and O2 saturation of 94% on 5 L nasal cannula. WBC in ED 19.2 and lactic acid 2.4. On admission, patient was noted to be saturating 100% on room air. While chest x-ray was negative, patient was noted to have a risk for aspiration in the past as he often forgets that he has food in his mouth, which may take time for aspiration pneumonia to appear on chest x-ray. Dx: SIRS score 4 COVID-negative, influenza A/B, and RSV negative Plan: Ampicillin/sulbactam 3 g (04/21 - 04/28) Blood cultures collected 04/21, pending Urine culture collected 04/21, pending #GI bleed, upper and lower Per patient's family, patient was noted to have dark looking stools with some bright red blood. FOBT done in ED was positive. However, on admission, hemoglobin was stable at 14.7. Patient does not appear symptomatic at this time other than increased lethargy, but this may also be secondary to infection. Further history is unobtainable from the patient. Plan: GI consulted, appreciate recommendations Will hold Eliquis for now until recommendations from GI #Transaminitis #Fatty liver disease #Cholelithiasis, without cholecystitis Patient was admitted with AST of 69 and ALT of 171. Alk phos is also increased at 183. AST and ALT are downtrending compared to values on previous discharge, thought to be secondary to statin use. Abdominal ultrasound 04/17 showed cholelithiasis with normal gallbladder wall size, normal common bile duct size, and 14 cm fatty infiltration in the liver with no focal liver lesions. Plan: Continue to monitor Avoid hepatotoxic medications if possible, especially statins #Pulmonary embolism, left lower lung #Provoked PE #DVT, right lower extremity Patient was noted to have a pulmonary embolism in left lower lung during previous admission. Likely secondary to DVT, which was found on right lower extremity. Patient was started on Eliquis 10 mg twice daily until 04/23, with plans to change to Eliquis 5 mg twice daily indefinitely afterwards due to the patient being bedbound long-term. Plan: Will hold Eliquis for now until recommendations from GI #Alzheimer's disease #Dementia Patient does have a history of Alzheimer's disease and is likely the source as to why patient is noninteractive at baseline. Patient takes Seroquel, donepezil, and memantine at home. Plan: Seroquel 50 mg nightly Donepezil 10 mg daily Memantine 10 mg twice daily #Sick sinus syndrome status post pacemaker placement Chronic medical history. Per cardiology, it is a [employer] pacemaker [place] [address] Forde for symptomatic bradycardia and sick sinus syndrome. Plan: Will continue to monitor, will consult cardiology if issues with heart rate arises #Hiccups, recurrent Patient was found to have recurrent hiccups during previous admission. One-time dose of chlorpromazine 10 mg and gabapentin 200 mg twice daily as needed seemed to control his hiccups per family members at bedside. Plan: Gabapentin 200 mg twice daily as needed for hiccups #Primary hypertension Patient does have a history of hypertension and takes lisinopril at home. Plan: Lisinopril 10 mg daily #BPH Patient has a history of BPH. Patient takes tamsulosin 0.4 mg at home. Plan: Resume home tamsulosin 0.4 mg daily DVT Prophylaxis: Held given GI bleed GI Prophylaxis: Protonix Bowel: Senna Diet: Cardiac, dysphagia 2 mech altered Crow: N/A Lines: Peripheral IV Antibiotics: Ampicillin/Sulbactam (04/21--) Code Status: FULL Reason for Hospitalization: Sepsis Other Barriers to Discharge: Blood cultures, urine culture Patient plan of care was discussed with attending physician Dr. Dayne Lemons, PGY1 Attending Provider Attestation/Addendum I attest that I was physically present for the evaluation, physical examination, lab and imaging review of the patient with the residents. I discussed the case with the residents and agree with the findings and plans of care as documented above. After examination of the patient and review of the clinical data I feel that this patient needs admission to the hospital for further treatment/evaluation. Jose Oscar MD
--- NOTE | 2025-04-21 16:11 | PC.NURSE ---
Spoke with Dr. Prado at 1610 regarding pt BP taken at 1558. This nurse was giving Lasix and Spironolactone at the time and got a BP reading of 142/101. This nurse explained why the Bp was taken and Dr said inga, thank you.
[2025-04-21] MEDS: AMPICILLIN/SULBAC INJ 3 GM in SODIUM CHLORIDE 0.9% (POP) 100 ML IV ×2 (18:22→23:36)
[2025-04-21 19:00] LABS: Respiratory Syncytial Virus Ag Negative (Negative)
[2025-04-21] MEDS: DONEPEZIL HCL 5 MG TABLET 10 MG PO (20:37)
[2025-04-21] MEDS: MEMANTINE HCL 5 MG TABLET 10 MG PO (20:38)
--- NOTE | 2025-04-21 22:58 | PD.IMCONS ---
HPI Data of Consult Requesting Physician: Jose Oscar MD Primary Care Provider: ADAM Martinez Consult Narrative Reason for consult: FOBT positive, blood in the stool History of present illness: 69 years old male brought in by the family to the emergency room for progressive shortness of breath I have been consulted as there was a complaint of bleeding per rectum and FOBT done in the ER was positive although patient has a very reasonable hemoglobin hematocrit at 14.7 and 43.1 Patient does have a history of pulmonary embolism and on Eliquis He also has a history of Alzheimer's dementia sick sinus syndrome requiring pacemaker essential hypertension cc:: cc: Jose Oscar MD Review of Systems Review of Systems ROS Unobtainable: unobtainable due to medical condition Past Medical History Surgical History OTHER SURGICAL HX: As in the history of present illness Meds Home Medications and Allergies Home Medications ?Medication ?Instructions ?Recorded ?Confirmed ?Type famotidine 20 mg tablet (Pepcid) 20 mg PO BID 04/14/25 04/21/25 History lisinopril 10 mg tablet 10 mg PO QDAY 04/14/25 04/21/25 History loratadine 10 mg tablet 10 mg PO Q24H 04/14/25 04/21/25 History memantine 10 mg tablet 10 mg PO BID 04/14/25 04/21/25 History tamsulosin 0.4 mg capsule (Flomax) 0.4 mg PO QDAY 04/14/25 04/21/25 History diphenhydramine HCl 25 mg capsule 25 mg PO QHSPRN sleep 04/21/25 04/21/25 History escitalopram oxalate 20 mg tablet 20 mg PO DAILY 04/21/25 04/21/25 History gabapentin 100 mg capsule 200 mg PO BID PRN hiccups 04/21/25 04/21/25 History quetiapine 150 mg tablet,extended 150 mg PO QPM 04/21/25 04/21/25 History release 24 hr (Seroquel XR) quetiapine 25 mg tablet 50 mg PO QAM 04/21/25 04/21/25 History Allergies Allergy/AdvReac Type Severity Reaction Status Date / Time No Known Allergies Allergy Verified 04/21/25 06:23 Exam Vital Signs Temp Pulse Resp BP Pulse Ox O2 Del Method O2 Flow Rate 97.6 F 63 17 135/73 H 100 Room Air 4 04/21/25 20:00 04/21/25 20:00 04/21/25 20:00 04/21/25 20:00 04/21/25 20:00 04/21/25 20:00 04/21/25 09:47 Constitutional Comments: Chronically ill-appearing Routine Respiratory Exam Comments: Normal to auscultation Routine Abdominal Exam Comments: Soft nontender positive bowel sounds Results Labs 04/21/25 06:28 04/21/25 06:28 Labs: Short CBC 04/21/25 Range/Units 06:28 WBC 19.2 H D (3.8-10.6) Thou/mm3 Hgb 14.7 D (13.5-16.0) g/dL Hct 43.4 (41.0-53.0) % Plt Count 259 D (140-440) Thou/mm3 BMP 04/21/25 06:28 Sodium 143 Potassium 4.3 D Chloride 104 Carbon Dioxide 29.7 BUN 12 Creatinine 1.0 Glucose 119 H Calcium 9.4 Cardiac Enzymes 04/21/25 Range/Units 06:28 Troponin I < 0.020 (0.0-0.045) ng/mL Liver Function 04/21/25 Range/Units 06:28 Total Bilirubin 0.6 (0.3-1.2) mg/dL AST 69 H (0-34) U/L ALT 171 H (10-49) U/L Alkaline Phosphatase 183 H D (46-116) U/L Albumin 4.2 D (3.4-4.8) gm/dL Urine 04/21/25 Range/Units 06:31 Urine Color Yellow (Lt Yel-Yel) Urine Clarity Clear (Clear/Hazy) Urine pH 6.0 (5.0-7.0) Ur Specific [place] 1.022 (1.001-1.035) Urine Protein Negative (Neg - Trace) Urine Glucose (UA) Negative (Negative) Assessment and Plan Additional Assessment & Plan Additional Plan: FOBT positive with a normal hemoglobin hematocrit on the patient with Eliquis Suggestions No need to stop the Eliquis I will continue the Eliquis as patient has a history of underlying pulmonary embolism as there is no significant bleed within normal hemoglobin hematocrit Hold off doing any invasive GI workup unless until there is a major drop in hemoglobin hematocrit Will follow the patient Other medical problems include Alzheimer's dementia Sick sinus syndrome requiring permanent cardiac pacemaker Essential hypertension Thank you very much for the opportunity to participate in the care of this patient
[2025-04-22] VITALS (7 sets, daily range): BP systolic 100–144; BP diastolic 60–86; PULSE 60–76; RESP 15–19; TEMP 36.1–36.6; O2SAT 95–100
[2025-04-22] MEDS: AMPICILLIN/SULBAC INJ 3 GM in SODIUM CHLORIDE 0.9% (POP) 100 ML IV ×3 (05:28→23:32)
[2025-04-22 05:33] LABS: Basophils # (Auto) 0.0 Thou/mm3 (0.0-0.2); Basophils % (Auto) 0 % (0-2.5); Eosinophils # (Auto) 0.2 Thou/mm3 (0.0-0.5); Eosinophils % (Auto) 2 % (0-10); Hematocrit 34.7 % (41.0-53.0); Hemoglobin 11.6 g/dL (13.5-16.0); Immature Granulocytes Auto 0.10 Thou/mm3 (0.00-0.00); Lymphocytes # (Auto) 1.5 Thou/mm3 (1.0-4.8); Lymphocytes % (Auto) 17 % (10-50); Mean Corpuscular HGB Conc 33.4 g/dl (31.0-37.0); Mean Corpuscular Hemoglobin 30.9 pg (25.0-35.0); Mean Corpuscular Volume 92 fL (80-100); Monocytes # (Auto) 0.8 Thou/mm3 (0.0-0.8); Monocytes % (Auto) 9 % (0-12); Neutrophils # (Auto) 6.4 Thou/mm3 (1.8-7.7); Neutrophils % (Auto) 71 % (37-80); Nucleated Red Blood Cell # 0.00 Thou/mm3 (0.00-0.00); Nucleated Red Blood Cell % 0 /100 WBC (0); Platelet Count 199 Thou/mm3 (140-440); RDW Standard Deviation 47.0 fL (35.1-43.9); Red Blood Count 3.76 Miln/mm3 (4.50-5.90); White Blood Count 9.0 Thou/mm3 (3.8-10.6)
[2025-04-22 06:07] LABS: Alanine Aminotransferase 100 U/L (10-49); Albumin, Serum 3.4 gm/dL (3.4-4.8); Albumin/Globulin Ratio 1.6 (1.2-2.2); Alkaline Phosphatase 128 U/L (46-116); Anion Gap 9 (7-16); Aspartate Amino Transferase 35 U/L (0-34); BUN/Creatinine Ratio 14 Ratio (12-20); Bilirubin,Total 0.5 mg/dL (0.3-1.2); Blood Urea Nitrogen 11 mg/dL (9-23); Calcium 8.6 mg/dL (8.3-10.6); Calcium (Corrected) 9.1 mg/dL (8.5-10.1); Carbon Dioxide 27.3 mMol/L (20.0-31.0); Chloride 108 mMol/L (98-107); Creatinine (Component) 0.8 mg/dL (0.6-1.3); Estimated Creatinine Clearance 82.2 mL/min (>60); Globulin 2.1 gm/dL (2.3-3.5); Glucose 104 mg/dL (74-106); Osmolality,Calculated 286 (275-295); Potassium 3.7 mMol/L (3.4-5.1); Sodium 144 mMol/L (136-145); Total Protein 5.5 gm/dL (5.7-8.2); eGFR > 60 See Note
[2025-04-22 09:33] LABS: Lactate (Lactic Acid) 1.4 mMol/L (0.4-2.0)
[2025-04-22] MEDS: TAMSULOSIN HCL 0.4 MG CAPSULE PO (09:38)
[2025-04-22] MEDS: APIXABAN 2.5 MG TABLET 10 MG PO ×2 (09:38→20:59)
[2025-04-22] MEDS: MEMANTINE HCL 5 MG TABLET 10 MG PO ×2 (09:38→20:58)
--- NOTE | 2025-04-22 14:05 | ESPR_ITS ---
<Statement entered by Joe Ross MD - 04/22/25 16:16> Patient seen and assessed in hospital bed, denies having any concerning symptoms at this time and appears clinically improved. As per gastroenterology consultation no need for further evaluation or endoscopy as the patient's hemoglobin is stable. Patient's blood cultures are still pending negative value over 48 hours as result we will keep the patient overnight and expect discharge back to SNF within the next 24 hours. I have personally seen and examined the patient. I agree with the resident's assessment and plan as documented below. Joe Ross DO PGY-2 Internal Medicine - GME Documentation for date of: 04/22/25 Subjective Subjective Interval history: Overnight events: No acute events overnight. Patient was seen and examined at bedside. AM vitals and labs reviewed. Patient is resting in bed without any acute distress. Reacts to voice, but is not interactive. WBC 9.0, blood cultures show no growth after 24 hours. Continue ampicillin/sulbactam. GI recommends continuing Eliquis. Resumed Eliquis. Possible discharge within 24 hours depending on blood culture results. Review of systems otherwise negative except for what is mentioned above. Exam Vital Signs Temp Pulse Resp BP Pulse Ox O2 Del Method O2 Flow Rate 96.9 F 60 18 108/60 95 Room Air 3 04/22/25 12:00 04/22/25 12:00 04/22/25 12:00 04/22/25 12:00 04/22/25 12:00 04/22/25 12:00 04/22/25 00:00 Narrative Exam Physical Exam: General: Sleepy, no acute distress. Skin: Warm, dry, intact. Head: Normocephalic, atraumatic. Eye: Normal conjunctiva, PERRL. Throat: Oral mucosa moist. No obvious lesions in oropharynx. Cardiovascular: Regular rate and rhythm, no murmur, +S1/S2. Respiratory: Lungs are clear to auscultation, respirations unlabored, no crackles, no wheezing. Gastrointestinal: Soft, nontender, non-distended. No guarding or rebound tenderness. Extremities: No edema, no cyanosis, no clubbing. 2+ radial pulse bilaterally, 2+ pedal pulse bilaterally. Pain on palpation of lower legs bilaterally. Objective Labs 04/22/25 05:15 04/22/25 05:15 Labs: Laboratory Results - last 24 hr 04/21/25 04/21/25 04/22/25 14:02 15:45 05:15 WBC 9.0 D RBC 3.76 L Hgb 11.6 L D Hct 34.7 L MCV 92 MCH 30.9 MCHC 33.4 RDW Std Deviation 47.0 H Plt Count 199 D Neut % (Auto) 71 Lymph % (Auto) 17 [place] % (Auto) 9 Eos % (Auto) 2 Baso % (Auto) 0 Neut # (Auto) 6.4 Lymph # (Auto) 1.5 [place] # (Auto) 0.8 Eos # (Auto) 0.2 Baso # (Auto) 0.0 Immature Gran # (Auto) 0.10 H Absolute Nucleated RBC 0.00 Immature Gran % 1 H Nucleated RBC % 0 Sodium 144 Potassium 3.7 D Chloride 108 H Carbon Dioxide 27.3 Anion Gap 9 BUN 11 Creatinine 0.8 Estim Creat Clear Calc 82.2 eGFR > 60 BUN/Creatinine Ratio 14 Glucose 104 Calculated Osmolality 286 Lactic Acid Calcium 8.6 Corrected Calcium 9.1 Total Bilirubin 0.5 AST 35 H ALT 100 H Alkaline Phosphatase 128 H D Total Protein 5.5 L Albumin 3.4 D Globulin 2.1 L Albumin/Globulin Ratio 1.6 RSV Rapid Cancelled Negative 04/22/25 09:27 WBC RBC Hgb Hct MCV MCH MCHC RDW Std Deviation Plt Count Neut % (Auto) Lymph % (Auto) [place] % (Auto) Eos % (Auto) Baso % (Auto) Neut # (Auto) Lymph # (Auto) [place] # (Auto) Eos # (Auto) Baso # (Auto) Immature Gran # (Auto) Absolute Nucleated RBC Immature Gran % Nucleated RBC % Sodium Potassium Chloride Carbon Dioxide Anion Gap BUN Creatinine Estim Creat Clear Calc eGFR BUN/Creatinine Ratio Glucose Calculated Osmolality Lactic Acid 1.4 Calcium Corrected Calcium Total Bilirubin AST ALT Alkaline Phosphatase Total Protein Albumin Globulin Albumin/Globulin Ratio RSV Rapid Quality Measures Quality Measures VTE prophylaxis Advance care planning discussed with:: patient and spouse Assessment & Plan Assessment Current Active Medications: Generic Name Dose Route Start Last Admin Trade Name Freq PRN Reason Stop Dose Admin Acetaminophen 650 mg 04/21/25 11:12 Acetaminophen 325 Mg Tablet PO 05/21/25 11:11 Q6H PRN PAIN SCALE 1-3 (mild Apixaban 10 mg 04/22/25 09:00 04/22/25 09:38 Apixaban 2.5 Mg Tablet PO 04/28/25 21:01 10 mg BID ARIANA Administration Donepezil HCl 10 mg 04/21/25 21:00 04/21/25 20:37 Donepezil Hcl 5 Mg Tablet PO 05/21/25 20:59 10 mg HS ARIANA Administration Gabapentin 200 mg 04/21/25 11:16 Gabapentin 100 Mg Capsule PO 05/21/25 13:59 TID PRN Hiccups Ampicillin Sodium/Sulbactam 100 mls @ 200 mls/hr 04/21/25 18:00 04/22/25 12:06 Sodium 3 gm/ Sodium Chloride IV 04/28/25 17:59 200 mls/hr Q6HR ARIANA Administration Lisinopril 10 mg 04/22/25 09:00 04/22/25 09:38 Lisinopril 2.5 Mg Tablet PO 05/22/25 08:59 10 mg QDAY ARIANA Administration Memantine 10 mg 04/21/25 21:00 04/22/25 09:38 Memantine Hcl 5 Mg Tablet PO 05/21/25 20:59 10 mg BID ARIANA Administration Pantoprazole Sodium 40 mg 04/21/25 21:00 04/22/25 09:39 Pantoprazole Inj 40 Mg Vial IVP 05/21/25 20:59 40 mg BID ARIANA Administration Quetiapine Fumarate 100 mg 04/21/25 21:00 04/21/25 20:38 Quetiapine Fumarate 100 Mg Tablet PO 05/21/25 20:59 100 mg HS ARIANA Administration Sennosides 1 tab 04/21/25 11:12 Senna Tablet PO 05/21/25 11:11 QDAY PRN constipation Protocol Tamsulosin HCl 0.4 mg 04/22/25 09:00 04/22/25 09:38 Tamsulosin Hcl 0.4 Mg Capsule PO 05/22/25 08:59 0.4 mg QDAY ARIANA Administration Plan Mr. Mcfadden is a 69-year-old male with a past medical history of Alzheimer's daily, dementia, sick sinus syndrome status post pacemaker placement, hypertension, BPH, and PE (takes Eliquis) who presented from [facility] to [facility] ED on 04/21 for shortness of breath. Patient was admitted for management of sepsis. #Sepsis 2/2 #Aspiration pneumonia vs #Healthcare facility associated pneumonia #Lactic acidosis Patient comes from nursing facility due to shortness of breath and cough. Patient was noted to have O2 saturation in low 80s prior to being brought to [facility] ED. In ED, patient was noted to have heart rate 115, respiratory rate 30, temperature 101.6 ?F, and O2 saturation of 94% on 5 L nasal cannula. WBC in ED 19.2 and lactic acid 2.4. On admission, patient was noted to be saturating 100% on room air. While chest x-ray was negative, patient was noted to have a risk for aspiration in the past as he often forgets that he has food in his mouth, which may take time for aspiration pneumonia to appear on chest x-ray. Dx: SIRS score 4 COVID-negative, influenza A/B, and RSV negative Plan: Ampicillin/sulbactam 3 g (04/21 - 04/28) Blood cultures collected 04/21, preliminary no growth after 24 hours Urine culture collected 04/21, pending #GI bleed, upper and lower Per patient's family, patient was noted to have dark looking stools with some bright red blood. FOBT done in ED was positive. However, on admission, hemoglobin was stable at 14.7. Patient does not appear symptomatic at this time other than increased lethargy, but this may also be secondary to infection. Further history is unobtainable from the patient. Plan: GI consulted, appreciate recommendations, believes patient is stable to resume Eliquis Continue Eliquis 10 mg twice daily for 1 week, then change to 5 mg twice daily #Transaminitis #Fatty liver disease #Cholelithiasis, without cholecystitis Patient was admitted with AST of 69 and ALT of 171. Alk phos is also increased at 183. AST and ALT are downtrending compared to values on previous discharge, thought to be secondary to statin use. Abdominal ultrasound 04/17 showed cholelithiasis with normal gallbladder wall size, normal common bile duct size, and 14 cm fatty infiltration in the liver with no focal liver lesions. Plan: Continue to monitor Avoid hepatotoxic medications if possible, especially statins #Pulmonary embolism, left lower lung #Provoked PE #DVT, right lower extremity Patient was noted to have a pulmonary embolism in left lower lung during previous admission. Likely secondary to DVT, which was found on right lower extremity. Patient was started on Eliquis 10 mg twice daily until 04/23, with plans to change to Eliquis 5 mg twice daily indefinitely afterwards due to the patient being bedbound long-term. Plan: Continue Eliquis 10 mg twice daily for 1 week, then change to 5 mg twice daily #Alzheimer's disease #Dementia Patient does have a history of Alzheimer's disease and is likely the source as to why patient is noninteractive at baseline. Patient takes Seroquel, donepezil, and memantine at home. Plan: Seroquel 50 mg nightly Donepezil 10 mg daily Memantine 10 mg twice daily #Sick sinus syndrome status post pacemaker placement Chronic medical history. Per cardiology, it is a Medtronic [place] [address] Forde for symptomatic bradycardia and sick sinus syndrome. Plan: Will continue to monitor, will consult cardiology if issues with heart rate arises #Hiccups, recurrent Patient was found to have recurrent hiccups during previous admission. One-time dose of chlorpromazine 10 mg and gabapentin 200 mg twice daily as needed seemed to control his hiccups per family members at bedside. Plan: Gabapentin 200 mg twice daily as needed for hiccups #Primary hypertension Patient does have a history of hypertension and takes lisinopril at home. Plan: Lisinopril 10 mg daily #BPH Patient has a history of BPH. Patient takes tamsulosin 0.4 mg at home. Plan: Resume home tamsulosin 0.4 mg daily DVT Prophylaxis: Held given GI bleed GI Prophylaxis: Protonix Bowel: Senna Diet: Cardiac, dysphagia 2 mech altered Crow: N/A Lines: Peripheral IV Antibiotics: Ampicillin/Sulbactam (04/21--) Code Status: FULL Reason for Hospitalization: Sepsis Other Barriers to Discharge: Blood cultures, urine culture Patient plan of care was discussed with attending physician Dr. Oscar and senior resident Dr. Ross (PGY-2) Dhiraj Lemons, PGY1 Attending Provider Attestation/Addendum I attest that I was physically present for the evaluation, physical examination, lab and imaging review of the patient with the residents. I discussed the case with the residents and agree with the findings and plans of care as documented above. At bedside today, patient appears comfortable, denies any complaints. Vital signs are stable, saturating well on room air. WBC count has been downtrending nicely. Hemoglobin is 11.6, from 14.7 yesterday. Gastroenterology following closely, did not recommend any aggressive GI workup for now as hemoglobin is stable, appreciate recommendations. We will continue with Eliquis. Awaiting culture results. Jose Oscar MD
--- NOTE | 2025-04-22 14:34 | PC.SS ---
Stevenson Mcfadden is a 69-year-old male admitted to [facility] for [facility]. SS conducted over the phone contact with pt dtr Nydia Mcfadden [phone] to complete initial assessment and establish DC plan. Nydia confirmed demographics. She identifies herself as the pt surrogate decision maker. Per Nydia pt was DC on Saturday to [facility]. They are unhappy with [facility] and wish for him to DC to another facility if possible. Per Nydia [facility] and [facility] are facilities she wishes to tour tomorrow. Pt is receiving therapy. SS informed Nydia SS will submit referral to all other facilities local to [place] and we can revisit conversation tomorrow as pt was identified as a DC possible for tomorrow. Nydia agrees with plan. ?Pt PCP is Dr. Herrera. Pt will require transport upon DC and possesses [facility] transport. SS will remain available. DC plan: SNF DM: Nydia Mcfadden [phone]
--- NOTE | 2025-04-22 14:38 | PC.SS ---
SNF referral submitted via [facility] pending responses
--- NOTE | 2025-04-22 14:57 | PC.SS ---
Rounding: Pending cultures. DC plan, SNF pending responses
[2025-04-22] MEDS: DONEPEZIL HCL 5 MG TABLET 10 MG PO (20:59)
--- NOTE | 2025-04-22 21:32 | PD.IMPROG ---
Documentation for date of: 04/22/25 Subjective Subjective Interval history: Significant drop in hemoglobin hematocrit from 14.7 and 43.4-11.6 and 34.7 Patient is on Eliquis which I want to continue It is important we screen his GI tract Exam Vital Signs Temp Pulse Resp BP Pulse Ox O2 Del Method O2 Flow Rate 97.8 F 66 19 118/64 100 Room Air 3 04/22/25 20:00 04/22/25 20:00 04/22/25 20:00 04/22/25 20:00 04/22/25 20:00 04/22/25 20:00 04/22/25 00:00 Objective Labs 04/22/25 05:15 04/22/25 05:15 Labs: Laboratory Results - last 24 hr 04/22/25 04/22/25 05:15 09:27 WBC 9.0 D RBC 3.76 L Hgb 11.6 L D Hct 34.7 L MCV 92 MCH 30.9 MCHC 33.4 RDW Std Deviation 47.0 H Plt Count 199 D Neut % (Auto) 71 Lymph % (Auto) 17 [place] % (Auto) 9 Eos % (Auto) 2 Baso % (Auto) 0 Neut # (Auto) 6.4 Lymph # (Auto) 1.5 [place] # (Auto) 0.8 Eos # (Auto) 0.2 Baso # (Auto) 0.0 Immature Gran # (Auto) 0.10 H Absolute Nucleated RBC 0.00 Immature Gran % 1 H Nucleated RBC % 0 Sodium 144 Potassium 3.7 D Chloride 108 H Carbon Dioxide 27.3 Anion Gap 9 BUN 11 Creatinine 0.8 Estim Creat Clear Calc 82.2 eGFR > 60 BUN/Creatinine Ratio 14 Glucose 104 Calculated Osmolality 286 Lactic Acid 1.4 Calcium 8.6 Corrected Calcium 9.1 Total Bilirubin 0.5 AST 35 H ALT 100 H Alkaline Phosphatase 128 H D Total Protein 5.5 L Albumin 3.4 D Globulin 2.1 L Albumin/Globulin Ratio 1.6 Impressions Impression: Acute posthemorrhagic anemia with a significant drop in hemoglobin hematocrit Plan Schedule upper endoscopy and colonoscopy after GoLytely prep patient may need therapeutic intervention before the patient is discharged Assessment & Plan A&P Narrative FOBT positive with a normal hemoglobin hematocrit on the patient with Eliquis Suggestions No need to stop the Eliquis I will continue the Eliquis as patient has a history of underlying pulmonary embolism as there is no significant bleed within normal hemoglobin hematocrit Hold off doing any invasive GI workup unless until there is a major drop in hemoglobin hematocrit Will follow the patient Other medical problems include Alzheimer's dementia Sick sinus syndrome requiring permanent cardiac pacemaker Essential hypertension Thank you very much for the opportunity to participate in the care of this patient Time Spent With Patient Time: Total time spent is greater than 50% in coordination of care (as documented) at patient's floor/unit and/or counseling patient:
[2025-04-22] MEDS: NA SU/NAHCO3/KC/PEG (Golytely) 4,000 ML BTL 4000 ML PO (22:45)
[2025-04-23] VITALS (22 sets, daily range): BP systolic 98–169; BP diastolic 60–89; PULSE 60–84; RESP 12–22; TEMP 36.1–36.8; O2SAT 92–100
[2025-04-23] MEDS: AMPICILLIN/SULBAC INJ 3 GM in SODIUM CHLORIDE 0.9% (POP) 100 ML IV ×3 (05:28→17:23)
[2025-04-23 05:52] LABS: Basophils # (Auto) 0.1 Thou/mm3 (0.0-0.2); Basophils % (Auto) 0 % (0-2.5); Eosinophils # (Auto) 0.1 Thou/mm3 (0.0-0.5); Eosinophils % (Auto) 1 % (0-10); Hematocrit 38.8 % (41.0-53.0); Hemoglobin 13.0 g/dL (13.5-16.0); Immature Granulocytes Auto 0.12 Thou/mm3 (0.00-0.00); Lymphocytes # (Auto) 1.2 Thou/mm3 (1.0-4.8); Lymphocytes % (Auto) 8 % (10-50); Mean Corpuscular HGB Conc 33.5 g/dl (31.0-37.0); Mean Corpuscular Hemoglobin 31.3 pg (25.0-35.0); Mean Corpuscular Volume 93 fL (80-100); Monocytes # (Auto) 0.7 Thou/mm3 (0.0-0.8); Monocytes % (Auto) 5 % (0-12); Neutrophils # (Auto) 12.3 Thou/mm3 (1.8-7.7); Neutrophils % (Auto) 85 % (37-80); Nucleated Red Blood Cell # 0.00 Thou/mm3 (0.00-0.00); Nucleated Red Blood Cell % 0 /100 WBC (0); Platelet Count 239 Thou/mm3 (140-440); RDW Standard Deviation 47.9 fL (35.1-43.9); Red Blood Count 4.16 Miln/mm3 (4.50-5.90); White Blood Count 14.5 Thou/mm3 (3.8-10.6)
[2025-04-23 06:15] LABS: Alanine Aminotransferase 86 U/L (10-49); Albumin, Serum 3.7 gm/dL (3.4-4.8); Albumin/Globulin Ratio 1.6 (1.2-2.2); Alkaline Phosphatase 136 U/L (46-116); Anion Gap 11 (7-16); Aspartate Amino Transferase 34 U/L (0-34); BUN/Creatinine Ratio 10 Ratio (12-20); Bilirubin,Total 0.7 mg/dL (0.3-1.2); Blood Urea Nitrogen 10 mg/dL (9-23); Calcium 8.7 mg/dL (8.3-10.6); Calcium (Corrected) 8.9 mg/dL (8.5-10.1); Carbon Dioxide 27.8 mMol/L (20.0-31.0); Chloride 104 mMol/L (98-107); Creatinine (Component) 1.0 mg/dL (0.6-1.3); Estimated Creatinine Clearance 68.1 mL/min (>60); Globulin 2.3 gm/dL (2.3-3.5); Glucose 83 mg/dL (74-106); Osmolality,Calculated 282 (275-295); Potassium 4.0 mMol/L (3.4-5.1); Sodium 143 mMol/L (136-145); Total Protein 6.0 gm/dL (5.7-8.2); eGFR > 60 See Note
[2025-04-23] MEDS: APIXABAN 2.5 MG TABLET 10 MG PO ×2 (08:14→21:26)
[2025-04-23] MEDS: MEMANTINE HCL 5 MG TABLET 10 MG PO ×2 (08:15→21:25)
[2025-04-23] MEDS: TAMSULOSIN HCL 0.4 MG CAPSULE PO (08:15)
--- NOTE | 2025-04-23 11:11 | PD.RESPRO ---
Documentation for date of: 04/23/25 Subjective Subjective Interval history: Patient seen and assessed in hospital bed denies having any concerning symptoms at this time. Gastroenterology is prepping the patient for both endoscopy and colonoscopy for melena which was noted prior to admission. Patient's hemoglobin is stable and we will continue to monitor for any acute changes. Exam Vital Signs Temp Pulse Resp BP Pulse Ox O2 Del Method O2 Flow Rate 98.3 F 84 17 116/80 95 Room Air 3 04/23/25 08:00 04/23/25 08:15 04/23/25 08:00 04/23/25 08:15 04/23/25 08:00 04/23/25 08:00 04/22/25 00:00 Narrative Exam Physical Exam: General: Sleepy, no acute distress. Skin: Warm, dry, intact. Head: Normocephalic, atraumatic. Eye: Normal conjunctiva, PERRL. Throat: Oral mucosa moist. No obvious lesions in oropharynx. Cardiovascular: Regular rate and rhythm, no murmur, +S1/S2. Respiratory: Lungs are clear to auscultation, respirations unlabored, no crackles, no wheezing. Gastrointestinal: Soft, nontender, non-distended. No guarding or rebound tenderness. Extremities: No edema, no cyanosis, no clubbing. 2+ radial pulse bilaterally, 2+ pedal pulse bilaterally. Objective Labs 04/24/25 04:35 04/24/25 13:50 Labs: Laboratory Results - last 24 hr 04/23/25 04:47 WBC 14.5 H D RBC 4.16 L Hgb 13.0 L Hct 38.8 L MCV 93 MCH 31.3 MCHC 33.5 RDW Std Deviation 47.9 H Plt Count 239 D Neut % (Auto) 85 H Lymph % (Auto) 8 L [place] % (Auto) 5 Eos % (Auto) 1 Baso % (Auto) 0 Neut # (Auto) 12.3 H Lymph # (Auto) 1.2 [place] # (Auto) 0.7 Eos # (Auto) 0.1 Baso # (Auto) 0.1 Immature Gran # (Auto) 0.12 H Absolute Nucleated RBC 0.00 Immature Gran % 1 H Nucleated RBC % 0 Sodium 143 Potassium 4.0 Chloride 104 Carbon Dioxide 27.8 Anion Gap 11 BUN 10 Creatinine 1.0 Estim Creat Clear Calc 68.1 eGFR > 60 BUN/Creatinine Ratio 10 L Glucose 83 Calculated Osmolality 282 Calcium 8.7 Corrected Calcium 8.9 Total Bilirubin 0.7 AST 34 ALT 86 H Alkaline Phosphatase 136 H Total Protein 6.0 Albumin 3.7 Globulin 2.3 Albumin/Globulin Ratio 1.6 Quality Measures Quality Measures VTE prophylaxis Advance care planning discussed with:: patient Assessment & Plan Assessment Current Active Medications: Generic Name Dose Route Start Last Admin Trade Name Freq PRN Reason Stop Dose Admin Acetaminophen 650 mg 04/21/25 11:12 Acetaminophen 325 Mg Tablet PO 05/21/25 11:11 Q6H PRN PAIN SCALE 1-3 (mild Apixaban 10 mg 04/22/25 09:00 04/23/25 08:14 Apixaban 2.5 Mg Tablet PO 04/28/25 21:01 10 mg BID ARIANA Administration Donepezil HCl 10 mg 04/21/25 21:00 04/22/25 20:59 Donepezil Hcl 5 Mg Tablet PO 05/21/25 20:59 10 mg HS ARIANA Administration Gabapentin 200 mg 04/21/25 11:16 Gabapentin 100 Mg Capsule PO 05/21/25 13:59 TID PRN Hiccups Ampicillin Sodium/Sulbactam 100 mls @ 200 mls/hr 04/21/25 18:00 04/23/25 05:28 Sodium 3 gm/ Sodium Chloride IV 04/28/25 17:59 200 mls/hr Q6HR ARIANA Administration Lisinopril 10 mg 04/22/25 09:00 04/23/25 08:15 Lisinopril 2.5 Mg Tablet PO 05/22/25 08:59 10 mg QDAY ARIANA Administration Memantine 10 mg 04/21/25 21:00 04/23/25 08:15 Memantine Hcl 5 Mg Tablet PO 05/21/25 20:59 10 mg BID ARIANA Administration Pantoprazole Sodium 40 mg 04/21/25 21:00 04/23/25 08:17 Pantoprazole Inj 40 Mg Vial IVP 05/21/25 20:59 40 mg BID ARIANA Administration Quetiapine Fumarate 100 mg 04/21/25 21:00 04/22/25 21:00 Quetiapine Fumarate 100 Mg Tablet PO 05/21/25 20:59 100 mg HS ARIANA Administration Sennosides 1 tab 04/21/25 11:12 Senna Tablet PO 05/21/25 11:11 QDAY PRN constipation Protocol Tamsulosin HCl 0.4 mg 04/22/25 09:00 04/23/25 08:15 Tamsulosin Hcl 0.4 Mg Capsule PO 05/22/25 08:59 0.4 mg QDAY ARIANA Administration Plan Mr. Mcfadden is a 69-year-old male with a past medical history of Alzheimer's daily, dementia, sick sinus syndrome status post pacemaker placement, hypertension, BPH, and PE (takes Eliquis) who presented from [facility] to [facility] ED on 04/21 for shortness of breath. Patient was admitted for management of sepsis. Patient came in and found to have 2 or more SIRS criteria and was evaluated for sepsis. However, based upon further work-up, sepsis was ruled out. I have I am doing nurse to infuse here but to #GI bleed, upper and lower Per patient's family, patient was noted to have dark looking stools with some bright red blood. FOBT done in ED was positive. However, on admission, hemoglobin was stable at 14.7. Patient does not appear symptomatic at this time other than increased lethargy, but this may also be secondary to infection. Further history is unobtainable from the patient. Plan: Arthur prep Colonoscopy and endoscopy scheduled GI consulted, appreciate recommendations, believes patient is stable to resume Eliquis Continue Eliquis 10 mg twice daily for 1 week, then change to 5 mg twice daily Gastroenterology recommends continuing Eliquis even with possible GI bleed present #Aspiration pneumonia vs #Healthcare facility associated pneumonia #Lactic acidosis Patient comes from nursing facility due to shortness of breath and cough. Patient was noted to have O2 saturation in low 80s prior to being brought to [facility] ED. In ED, patient was noted to have heart rate 115, respiratory rate 30, temperature 101.6 ?F, and O2 saturation of 94% on 5 L nasal cannula. WBC in ED 19.2 and lactic acid 2.4. On admission, patient was noted to be saturating 100% on room air. While chest x-ray was negative, patient was noted to have a risk for aspiration in the past as he often forgets that he has food in his mouth, which may take time for aspiration pneumonia to appear on chest x-ray. Dx: SIRS score 4 COVID-negative, influenza A/B, and RSV negative Plan: Ampicillin/sulbactam 3 g (04/21 - 04/28) Blood cultures collected 04/21, preliminary no growth after 24 hours Urine culture collected 04/21, pending #Transaminitis #Fatty liver disease #Cholelithiasis, without cholecystitis Patient was admitted with AST of 69 and ALT of 171. Alk phos is also increased at 183. AST and ALT are downtrending compared to values on previous discharge, thought to be secondary to statin use. Abdominal ultrasound 04/17 showed cholelithiasis with normal gallbladder wall size, normal common bile duct size, and 14 cm fatty infiltration in the liver with no focal liver lesions. Plan: Continue to monitor Avoid hepatotoxic medications if possible, especially statins #Pulmonary embolism, left lower lung #Provoked PE #DVT, right lower extremity Patient was noted to have a pulmonary embolism in left lower lung during previous admission. Likely secondary to DVT, which was found on right lower extremity. Patient was started on Eliquis 10 mg twice daily until 04/23, with plans to change to Eliquis 5 mg twice daily indefinitely afterwards due to the patient being bedbound long-term. Plan: Continue Eliquis 10 mg twice daily for 1 week, then change to 5 mg twice daily Gastroenterology recommends continuing Eliquis even with possible GI bleed present #Alzheimer's disease #Dementia Patient does have a history of Alzheimer's disease and is likely the source as to why patient is noninteractive at baseline. Patient takes Seroquel, donepezil, and memantine at home. Plan: Seroquel 50 mg nightly Donepezil 10 mg daily Memantine 10 mg twice daily #Sick sinus syndrome status post pacemaker placement Chronic medical history. Per cardiology, it is a Medtronic [place] [address] Forde for symptomatic bradycardia and sick sinus syndrome. Plan: Will continue to monitor, will consult cardiology if issues with heart rate arises #Hiccups, recurrent Patient was found to have recurrent hiccups during previous admission. One-time dose of chlorpromazine 10 mg and gabapentin 200 mg twice daily as needed seemed to control his hiccups per family members at bedside. Plan: Gabapentin 200 mg twice daily as needed for hiccups #Primary hypertension Patient does have a history of hypertension and takes lisinopril at home. Plan: Continue lisinopril 10 mg daily #BPH Patient has a history of BPH. Patient takes tamsulosin 0.4 mg at home. Plan: Continue home tamsulosin 0.4 mg daily Health Maintenance: DVT Prophylaxis: Held given GI bleed GI Prophylaxis: Protonix Bowel: Senna Diet: Cardiac, dysphagia 2 mech altered Crow: N/A Lines: Peripheral IV Antibiotics: Ampicillin/Sulbactam (04/21--) Dispo: Pending colonoscopy and endoscopy with GI Code Status: FULL Patient seen and assessed with attending Dr. Dayne Ross, PGY-2 Internal Medicine - GME Attending Provider Attestation/Addendum I attest that I was physically present for the evaluation, physical examination, lab and imaging review of the patient with the residents. I discussed the case with the residents and agree with the findings and plans of care as documented above. At bedside today, patient appears comfortable and denies any new complaints. WBC count increased to 14.5 but patient does not have any new signs of infection, we will obtain repeat CBC. continues to be on IV antibiotics for possible aspiration pneumonia, culture results are negative for more than 48 hours. Planned for EGD and colonoscopy with gastroenterology today. Jose Oscar MD
--- NOTE | 2025-04-23 12:30 | PC.SS ---
Addendum entered by Beulah Malagon 04/23/25 12:38: SS has contacted Maira from patient registration to update patient's facesheet with his dtr, Nydia Mcfadden's correct phone# [phone] ([phone] is not correct). SS spoke to dtr, Nydia, phone# [phone] and discussed SNF options. Nydia explained pt is from [facility] but she is now requesting a different SNF. Nydia's choice is for pt to go to [facility]. SS spoke to Tia at [facility] who states she will follow up in her morning meeting if they will accept pt due to pt being prescribed Seroquel by PCP. Original Note: SS spoke to pt registration to update patient's facesheet with his daughter's correct phone# [phone] (daughter's phone# was not correct on patient's facesheet). Daughter, Nydia Mcfadden's correct phone# is [phone]. SS spoke to Nydia who is requesting pt go to [facility] and not return to [facility]. SS has spoken to Johanna from [facility] who is aware. Tia from [facility] states she will accept pt.
--- NOTE | 2025-04-23 15:20 | CHAP ---
Patient was visited by the Spiritual Care Volunteer who prayed for them. (Volunteer was in the hospital from 13:09-15:20).
[2025-04-23 15:36] LABS: Basophils # (Auto) 0.1 Thou/mm3 (0.0-0.2); Basophils % (Auto) 1 % (0-2.5); Eosinophils # (Auto) 0.0 Thou/mm3 (0.0-0.5); Eosinophils % (Auto) 0 % (0-10); Hematocrit 37.3 % (41.0-53.0); Hemoglobin 12.6 g/dL (13.5-16.0); Immature Granulocytes Auto 0.07 Thou/mm3 (0.00-0.00); Lymphocytes # (Auto) 1.6 Thou/mm3 (1.0-4.8); Lymphocytes % (Auto) 16 % (10-50); Mean Corpuscular HGB Conc 33.8 g/dl (31.0-37.0); Mean Corpuscular Hemoglobin 31.0 pg (25.0-35.0); Mean Corpuscular Volume 92 fL (80-100); Monocytes # (Auto) 0.6 Thou/mm3 (0.0-0.8); Monocytes % (Auto) 6 % (0-12); Neutrophils # (Auto) 7.4 Thou/mm3 (1.8-7.7); Neutrophils % (Auto) 76 % (37-80); Nucleated Red Blood Cell # 0.00 Thou/mm3 (0.00-0.00); Nucleated Red Blood Cell % 0 /100 WBC (0); Platelet Count 234 Thou/mm3 (140-440); RDW Standard Deviation 47.7 fL (35.1-43.9); Red Blood Count 4.06 Miln/mm3 (4.50-5.90); White Blood Count 9.7 Thou/mm3 (3.8-10.6)
[2025-04-23] MEDS: SODIUM CHLORIDE 0.9% 500 ML 500 ML 20 ML IV (19:05)
[2025-04-23] MEDS: Ampicillin Inj 2,000 MG in SODIUM CHLORIDE 0.9% (POP) 100 ML 100 MG IV (19:05)
[2025-04-23] MEDS: GENTAMICIN/NS 80 MG IVPB 80 MG/50 ML PIGGYBACK 50 MG IV (19:35)
--- NOTE | 2025-04-23 20:12 | SUR.PHASEI ---
pt received from OR in recovery bay 4. pt asleep but responds to voice, breathing unlabored on nc 5l. v/s stable. report received from Isabella GREENFIELD.
--- NOTE | 2025-04-23 21:00 | SUR.PHASEI ---
pt asleep but responds to voice, breathing unlabored on 2l nc. v/s stable. report called to Julian Wiggins. pt will be transferred to room at this time.
[2025-04-23] MEDS: DONEPEZIL HCL 5 MG TABLET 10 MG PO (21:26)
[2025-04-24] VITALS: BP 109/68; PULSE 60; RESP 11; TEMP 36.1; O2SAT 98
[2025-04-24 04:00] VITALS: BP 121/72; PULSE 65; PULSE 73; RESP 15; TEMP 36.1; O2SAT 99
[2025-04-24 05:43] LABS: Basophils # (Auto) 0.0 Thou/mm3 (0.0-0.2); Basophils % (Auto) 1 % (0-2.5); Eosinophils # (Auto) 0.1 Thou/mm3 (0.0-0.5); Eosinophils % (Auto) 2 % (0-10); Hematocrit 36.2 % (41.0-53.0); Hemoglobin 11.9 g/dL (13.5-16.0); Immature Granulocytes Auto 0.07 Thou/mm3 (0.00-0.00); Lymphocytes # (Auto) 1.1 Thou/mm3 (1.0-4.8); Lymphocytes % (Auto) 24 % (10-50); Mean Corpuscular HGB Conc 32.9 g/dl (31.0-37.0); Mean Corpuscular Hemoglobin 30.4 pg (25.0-35.0); Mean Corpuscular Volume 93 fL (80-100); Monocytes # (Auto) 0.5 Thou/mm3 (0.0-0.8); Monocytes % (Auto) 11 % (0-12); Neutrophils # (Auto) 2.8 Thou/mm3 (1.8-7.7); Neutrophils % (Auto) 61 % (37-80); Nucleated Red Blood Cell # 0.00 Thou/mm3 (0.00-0.00); Nucleated Red Blood Cell % 0 /100 WBC (0); Platelet Count 225 Thou/mm3 (140-440); RDW Standard Deviation 47.4 fL (35.1-43.9); Red Blood Count 3.91 Miln/mm3 (4.50-5.90); White Blood Count 4.6 Thou/mm3 (3.8-10.6)
[2025-04-24 06:33] LABS: Alanine Aminotransferase 61 U/L (10-49); Albumin, Serum 3.4 gm/dL (3.4-4.8); Albumin/Globulin Ratio 1.6 (1.2-2.2); Alkaline Phosphatase 115 U/L (46-116); Anion Gap 11 (7-16); Aspartate Amino Transferase 23 U/L (0-34); BUN/Creatinine Ratio 10 Ratio (12-20); Bilirubin,Total 0.7 mg/dL (0.3-1.2); Blood Urea Nitrogen 8 mg/dL (9-23); Calcium 8.5 mg/dL (8.3-10.6); Calcium (Corrected) 9.0 mg/dL (8.5-10.1); Carbon Dioxide 26.7 mMol/L (20.0-31.0); Chloride 108 mMol/L (98-107); Creatinine (Component) 0.8 mg/dL (0.6-1.3); Estimated Creatinine Clearance 85.1 mL/min (>60); Globulin 2.1 gm/dL (2.3-3.5); Glucose 79 mg/dL (74-106); Osmolality,Calculated 287 (275-295); Potassium 3.5 mMol/L (3.4-5.1); Sodium 146 mMol/L (136-145); Total Protein 5.5 gm/dL (5.7-8.2); eGFR > 60 See Note
[2025-04-24 08:00] VITALS: BP 131/85; PULSE 60; RESP 18; TEMP 36.2; O2SAT 96
[2025-04-24] MEDS: APIXABAN 2.5 MG TABLET 10 MG PO (10:29)
[2025-04-24] MEDS: MEMANTINE HCL 5 MG TABLET 10 MG PO (10:29)
[2025-04-24 10:30] VITALS: BP 131/85; PULSE 60
[2025-04-24] MEDS: TAMSULOSIN HCL 0.4 MG CAPSULE PO (10:30)
--- NOTE | 2025-04-24 10:55 | PC.SS ---
Addendum entered by Mitzi Nguyen 04/24/25 15:37: Swetha and Tia [facility] confirmed patient can be accepted/received today. RN Ingris was consulted regarding transportation need, gurney vs. wheelchair. patient is needing gurney transportation due to weakness. [employer] [phone] was contacted, reservation #[id number] provided for transportation. [facility] Kiera [phone] contacted, transportation placed on willcall for 1800. [facility] still needing auth. from [employer].. SS requested [facility] contact at [phone] if after [phone], confirm or cancel transportation. Addendum entered by Mitzi Nguyen 04/24/25 14:39: SS submitted current clinicals via [facility] to [facility]. Swetha-[facility] informed patient will be a confirmed discharge for today. SS awaiting for [facility] Admins' responses. Original Note: SS informed by Dr. Ross patient may discharge today, 04/24/25. [facility] confirmation of [facility]. Patient's referral was under review with [facility] due to being on Seroquel.
[2025-04-24 12:00] VITALS: BP 120/67; PULSE 60; PULSE 62; RESP 16; TEMP 36.3; O2SAT 97
[2025-04-24 14:36] LABS: Albumin, Serum 3.5 gm/dL (3.4-4.8); Anion Gap 9 (7-16); BUN/Creatinine Ratio 8 Ratio (12-20); Blood Urea Nitrogen 7 mg/dL (9-23); Calcium 8.8 mg/dL (8.3-10.6); Calcium (Corrected) 9.2 mg/dL (8.5-10.1); Carbon Dioxide 26.7 mMol/L (20.0-31.0); Chloride 110 mMol/L (98-107); Creatinine (Component) 0.9 mg/dL (0.6-1.3); Estimated Creatinine Clearance 75.6 mL/min (>60); Glucose 100 mg/dL (74-106); Osmolality,Calculated 288 (275-295); Phosphorous 3.2 mg/dL (2.4-5.1); Potassium 4.1 mMol/L (3.4-5.1); Sodium 146 mMol/L (136-145); eGFR > 60 See Note
--- NOTE | 2025-04-24 15:43 | PC.NURSE ---
Per daughter at bedside she states pt has been eating food fom home like soups and has tolerated well
--- NOTE | 2025-04-24 15:51 | ESDS_ITS ---
Planned Discharge Date 04/24/25 DS: Providers Provider Date of admission: 04/21/25 11:12 Primary care physician: ADAM Martinez Admitting Provider: Jose Oscar MD Attending Provider on Admission: Jose Oscar MD Consults: 04/21/25 16:28 Consult to Gastroenterology Routine Comment: FOBT positive dark stool Consulting Provider: Olga Penaloza Attending Provider on DC: Joe Ross MD Discharging Provider: Joe Ross MD DS: Diagnosis Problem List Completed Was Problem List Reviewed/Reconciled?: Yes Hospital Course Hospital Course Hospital course: 69-year-old male with past medical history Alzheimer's, dementia, sick sinus syndrome status post pacemaker placement, hypertension, BPH, PE on Eliquis presented to ER on 04/21 for shortness of breath and cough. In the ED, patient was mildly hypertensive with tachycardia and tachypneic with mild febrile episode saturating 94 on 5% nasal cannula. Chest x-ray did not show any active disease and CT abdomen pelvis showed some gallbladder wall thickening, moderate prostatomegaly and abundant stool in the rectum. FOBT was performed which was positive and the patient was admitted along with GI consultation for GI bleed. Patient's vitals improved and he was prepped for both endoscopy and colonoscopy; endoscopy showed moderate gastritis and a hiatal hernia and colonoscopy showed internal hemorrhoids which were banded and moderate diverticulosis in the sigmoid and descending colon. Patient was able to tolerate diet and will be discharged to SNF with the following strict instructions. Start taking Eliquis 5mg PO BID for 6 months; then 2.5mg PO BID indefinitely Take benzonatate 100mg capsule every 8 hours as needed for cough Take quetiapine 100mg by mouth at night for dementia/agitation-associated Continue all other home medications as prescribed Follow-up with your PCP within 1-2 weeks after discharge If your symptoms worsen or if you develop new chest pain, shortness of breath, abdominal pain or bleeding - please come back to the ED immediately. Hospital Diagnosis: #Internal hemorrhoid #Gastritis, duodenitis #Transaminitis #Fatty liver disease #Cholelithiasis, without cholecystitis #Pulmonary embolism, left lower lung #Provoked PE #DVT, right lower extremity #Alzheimer's disease #Dementia #Sick sinus syndrome status post pacemaker placement #Hiccups, recurrent #Primary hypertension #BPH Joe Ross DO PGY-2 Internal Medicine - [facility] Status at Discharge Overall status at discharge: patient is progressing back to baseline Time Spent with Patient Time attestation: Total time spent providing and/or coordinating discharge services: 45 minutes Time spent: Greater than 30 minutes Exam Vital Signs Temp Pulse Resp BP Pulse Ox O2 Del Method O2 Flow Rate 97.4 F 60 16 120/67 97 Room Air 3 04/24/25 12:00 04/24/25 12:04/24/25 12:04/24/25 12:04/24/25 12:04/24/25 12:04/24/25 04:00 Narrative Exam Physical Exam: General: Awake Skin: Warm, dry, intact. Head: Normocephalic, atraumatic. Eye: Normal conjunctiva, PERRL. Throat: Oral mucosa moist. No obvious lesions in oropharynx. Cardiovascular: Regular rate and rhythm, no murmur, +S1/S2. Respiratory: Lungs are clear to auscultation, respirations unlabored, no crackles, no wheezing. Gastrointestinal: Soft, nontender, non-distended. No guarding or rebound tenderness. Extremities: No edema, no cyanosis, no clubbing. 2+ radial pulse bilaterally, 2+ pedal pulse bilaterally. Discharge Plan Plan Patient Disposition: Xfer Skilled Nsg Fac (SNF) Patient condition on transfer: Stable Care Plan Goals: Start taking Eliquis 5mg PO BID for 6 months; then 2.5mg PO BID indefinitely Take benzonatate 100mg capsule every 8 hours as needed for cough Take quetiapine 100mg by mouth at night for dementia/agitation-associated Continue all other home medications as prescribed Follow-up with your PCP within 1-2 weeks after discharge If your symptoms worsen or if you develop new chest pain, shortness of breath, abdominal pain or bleeding - please come back to the ED immediately. Prescriptions/Referrals Prescriptions/Med Rec: New benzonatate 100 mg Capsule 100 mg PO Q8HR PRN (Reason: Cough) 7 Days Qty: 20 0RF quetiapine 100 mg Tablet 100 mg PO HS 30 Days Qty: 30 0RF Continued diphenhydramine HCl 25 mg capsule 25 mg PO QHSPRN Patient Comments: TOME 1 C PSULA POR V A ORAL AL ACOSTARSE PARA INSOMNIO escitalopram oxalate 20 mg tablet 20 mg PO DAILY Patient Comments: TOME LUPILLO TABLETA POR VIA ORAL TODOS LOS BRINK PARA LA DEPRESION O ANSIEDAD gabapentin 100 mg capsule 200 mg PO BID PRN (Reason: hiccups) Rx Instructions: Take Gabapentin 200mg as needed for Hiccups Eliquis 5 mg tablet 5 mg PO BID 30 Days Qty: 60 3RF famotidine [Pepcid] 20 mg tablet 20 mg PO BID loratadine 10 mg tablet 10 mg PO Q24H tamsulosin [Flomax] 0.4 mg capsule 0.4 mg PO QDAY lisinopril 10 mg tablet 10 mg PO QDAY memantine 10 mg tablet 10 mg PO BID senna 8.6 mg capsule 8.6 mg PO QDAY PRN (Reason: constipation) Qty: 30 0RF Discontinued quetiapine [Seroquel XR] 150 mg tablet extended release 24 hr 150 mg PO QPM quetiapine 25 mg Tablet 50 mg PO QAM apixaban 5 mg tablet 10 mg PO BID 5 Days Qty: 20 0RF Rx Instructions: To complete regimen on 04/22/2025 Referrals: Maria Esther Herrera FNP [Primary Care Provider] Outpatient Orders (i.e. Home Health, Labs, Imaging): Comprehensive Metabolic Panel (Routine) Timeframe: 3 Days Location: None Selected Ordered By: Joe Ross Patient/Caregiver Discharge Instructions Education Materials: Dementia Patients Safety Tips, Dementia Patients Caregiver Print Language: Icelandic Stand Alone Forms: Deborah Award Info., Patient Portal Info Letter Discharge Order Discharge Orders: Discharge (Routine); Ordered 04/24/25 Ordered By: Joe Ross Quality Discharge Quality Measures VTE prophylaxis MD Attestestation MD Attestation I attest that I was physically present for the evaluation, physical examination, lab and imaging review of the patient with the residents. I discussed the case with the residents and agree with the findings and plans of care as documented above. At bedside today, patient appears comfortable and denies any new complaints. Lab results and vital signs are stable. Noted to have sodium of 146, encouraged patient to drink more free water. Underwent EGD and colonoscopy with GI yesterday. EGD showed moderate gastritis and hiatal hernia, colonoscopy showed internal hemorrhoids which were banded, moderate diverticulosis. Discussed with GI, agreed patient stable for discharge to SNF. Jose Oscar MD
[2025-04-24 16:00] VITALS: BP 122/65; PULSE 60; PULSE 61; RESP 18; TEMP 36.6; O2SAT 93
== END 2025-04-24 17:57 | disposition skilled nursing facility (03) | DRG 853 ==
LOC: SERX 10:19 → SERHOLD 11:55 → S3NX 12:59
PROVIDERS: Specialist; Admitting Provider Student in an Organized Health Care Education/Training Program; Emergency Provider Emergency Medicine; PCP Nurse Practitioner; Visit Provider Student in an Organized Health Care Education/Training Program
PROC: 06LY8CC Occlusion of Hemorrhoidal Plexus with Extraluminal Device, Via Natural or Artificial Opening Endoscopic (ICD-10-PCS; CPT 43239; principal; 2025-04-23 19:00)
PROC: 0DJD8ZZ Inspection of Lower Intestinal Tract, Via Natural or Artificial Opening Endoscopic (ICD-10-PCS; CPT 45378; 2025-04-23 19:00)
DX: A41.9 Sepsis, unspecified organism (principal); I26.99 Other pulmonary embolism without acute cor pulmonale; J69.0 Pneumonitis due to inhalation of food and vomit; J18.9 Pneumonia, unspecified organism; K29.71 Gastritis, unspecified, with bleeding; K57.31 Diverticulosis of large intestine without perforation or abscess with bleeding; K29.81 Duodenitis with bleeding; I82.401 Acute embolism and thrombosis of unspecified deep veins of right lower extremity; D62 Acute posthemorrhagic anemia; E87.20 Acidosis, unspecified; Z95.0 Presence of cardiac pacemaker; N40.0 Benign prostatic hyperplasia without lower urinary tract symptoms; I10 Essential (primary) hypertension; K80.20 Calculus of gallbladder without cholecystitis without obstruction; G30.9 Alzheimer's disease, unspecified; F02.80 Dementia in other diseases classified elsewhere, unspecified severity, without behavioral disturbance, psychotic disturbance, mood disturbance, and anxiety; I49.5 Sick sinus syndrome; K76.0 Fatty (change of) liver, not elsewhere classified; R06.6 Hiccough; Z86.711 Personal history of pulmonary embolism; K64.3 Fourth degree hemorrhoids; K44.9 Diaphragmatic hernia without obstruction or gangrene; Z74.01 Bed confinement status; Z79.01 Long term (current) use of anticoagulants; Z79.899 Other long term (current) drug therapy
CPT/HCPCS: 36415; 71045; 74177; 80053; 80069; 81001; 82270; 83605; 83735; 83880; 84100; 84145; 84484; 85025; 85610; 85730; 87040; 87081; 87086; 87400; 87634; 87811; 93005; 93225; 96365; 99284; A4649; J0131; J0290; J0295; J1200; J1580; J2250; J2470; J2543; J3010; J3490; J7030; J7050; J7999; Q9967; A9270